=== PATIENT | female | born 1950 | race Caucasian/White ===

== ENCOUNTER → 2017-09-07 | Outpatient (CLI) | payer MEDICARE, MEDICAID ==
[~2017-09-07] MED LIST: ABIL15TA3 PO; ACET-822 PO; ALBU0.63 NEB; ATEN50TA PO; ATOR20TA15 PO; CARB25TA9 PO; CLON0.5T PO; FENO145T2 PO; FLUT1INH INH; FLUT50SP EACH NARE; FURO1TAB62 PO; GABA400C5 PO; IPRA0.02 NEB; MULT-65 PO; OMEP40CA2 PO; TRAZ1TAB14 PO; TRIL600T PO; VITA1000 PO
[2017-09-07 08:54] LABS: AUTOMATED NEUTROPHIL # 3.3 TH/MM3 (1.8-7.7); BASOPHIL % 0.4 % (0.0-2.0); EOSINOPHIL # 0.1 TH/MM3 (0-0.4); EOSINOPHIL % 2.5 % (0.0-4.0); HEMATOCRIT 33.5 % (35.0-46.0); HEMOGLOBIN 11.3 GM/DL (11.6-15.3); INTERNATIONAL NORMALIZED RATIO 1.1 RATIO; LYMPH % 28.9 % (9.0-44.0); LYMPHOCYTE # 1.5 TH/MM3 (1.0-4.8); MEAN CELL VOLUME 97.8 FL (80.0-100.0); MEAN CORPUSCULAR HGB CONC 33.7 % (32.0-36.0); MEAN PLATELET VOLUME 7.7 FL (7.0-11.0); MONOCYTE # 0.3 TH/MM3 (0-0.9); NEUT % 62.2 % (16.0-70.0); PLATELET COUNT 175 TH/MM3 (150-450); PROTHROMBIN TIME - PATIENT 11.2 SEC (9.8-11.6); RED BLOOD COUNT 3.42 MIL/MM3 (4.00-5.30); WHITE BLOOD COUNT 5.3 TH/MM3 (4.0-11.0)
[2017-09-07 09:11] LABS: ALBUMIN 3.7 GM/DL (3.4-5.0); ALT (GPT) 12 U/L (10-53); AST (GOT) 25 U/L (15-37); BICARBONATE 26.9 MEQ/L (21.0-32.0); BLOOD UREA NITROGEN 34 MG/DL (7-18); CALCIUM 8.7 MG/DL (8.5-10.1); CHLORIDE 108 MEQ/L (98-107); CREATININE 2.64 MG/DL (0.50-1.00); GLOMERULAR FILTRATION RATE 18 ML/MIN (>89); GLUCOSE,FASTING 118 MG/DL (74-99); SODIUM (NA) 141 MEQ/L (136-145)
[2017-09-07 09:13] LABS: ALKALINE PHOSPHATASE 66 U/L (45-117); TOTAL BILIRUBIN ADULT 0.4 MG/DL (0.2-1.0)
[2017-09-07 09:17] LABS: WESTERGREN SEDIMENTATION RATE 20 mm/hr (0-30)
[2017-09-07 10:09] LABS: BACTERIA, URINE MANY /hpf; BILIRUBIN, URINE NEG (NEG); BLOOD, URINE NEG (NEG); GLUCOSE,URINE NEG (NEG); KETONE, URINE NEG (NEG); MUCUS URINE FEW /lpf (OCC); NITRITE,URINE NEG (NEG); URINE COLOR YELLOW (YELLW/STRAW); URINE LEUKOCYTE ESTERASE LARGE (NEG)
--- NOTE | 2017-09-07 10:15 | RADRPT ---
EXAM DATE/TIME: 09/07/2017 09:58 [facility] COMPARISON: CHEST SINGLE AP, September 14, 2015, 9:19. INDICATIONS : Evaluate for pneumonia, pneumothorax, or communicable disease. Pre op for knee surgery. MEDICAL HISTORY : Hypertension. Chronic obstructive pulmonary disease. Diabetes. Asthma. SURGICAL HISTORY : None. ENCOUNTER: Initial ACUITY: 1 day PAIN SCORE: 0/10 LOCATION: FINDINGS: PA and lateral views of the chest demonstrate the lungs to be symmetrically aerated without evidence of mass, infiltrate or effusion. The cardiomediastinal contours are unremarkable. Osseous structure s are intact. CONCLUSION: No acute disease. Mendez Kennedy MD on September 07, 2017 at 10:10 Board Certified Radiologist. This report was verified electronically.
--- NOTE | 2017-09-07 16:44 | EKG ---
Date Performed: 09/07/2017 Time Performed: 09:32:28 PTAGE: 66 years EKG: Sinus rhythm Possible anterior infarct - age undetermined Inferior/lateral T wave changes are nonspecific Low QRS voltages in precordial leads Abnormal ECG PREVIOUS TRACING : 09/14/2015 09.46 Since previous tracing, no significant change noted DOCTOR: Ryan Churchill Interpretating Date/Time 09/07/2017 16:42:56
== END ==
LOC: CPRE 08:06
PROVIDERS: ATTEND Orthopaedic Surgery Sports Medicine
DX: Z01.812 Encounter for preprocedural laboratory examination (principal); Z01.810 Encounter for preprocedural cardiovascular examination; Z01.811 Encounter for preprocedural respiratory examination; M17.12 Unilateral primary osteoarthritis, left knee; M25.50 Pain in unspecified joint; R94.31 Abnormal electrocardiogram [ECG] [EKG]; N39.0 Urinary tract infection, site not specified; B96.1 Klebsiella pneumoniae [K. pneumoniae] as the cause of diseases classified elsewhere; Z79.01 Long term (current) use of anticoagulants; Z96.60 Presence of unspecified orthopedic joint implant
CPT/HCPCS: 36415; 71046; 80053; 81001; 85025; 85610; 85652; 85730; 87077; 87086; 87186; 93005

== ENCOUNTER 2017-09-17 05:31 | Inpatient (IN) | payer MEDICARE, MEDICAID ==
[2017-09-17] MEDS ORDERED: CHLORHEXIDINE GLUCONATE 2 % 1 PACK (2 CLOTHS) TOPICAL (06:00)
[2017-09-17] MEDS ORDERED: SODIUM CHLORID 0.9% 500 ML IV (06:00)
[2017-09-17] MEDS ORDERED: ceFAZolin 2 GM PREMIX 50 ML IV (06:00)
[2017-09-17] MEDS ORDERED: diphenhydrAMINE HCL 50 MG/ML VIAL IV PUSH (07:00)
[2017-09-17] MEDS ORDERED: ZOLPIDEM TARTRATE 5 MG TAB PO (07:00)
[2017-09-17] MEDS ORDERED: ONDANSETRON HCL 4 MG/2 ML VIAL IVP (07:00)
[2017-09-17] MEDS ORDERED: HYDROmorphone HCL PF 2 MG/ML VIAL IV PUSH (07:00)
[2017-09-17 07:45] LABS: BILIRUBIN, URINE NEG (NEG); BLOOD, URINE NEG (NEG); COMMENT (UR) CATH-CULT NOT IND; CULTURE IF INDICATED CATH CULTURE NOT IND; GLUCOSE,URINE NEG (NEG); KETONE, URINE NEG (NEG); NITRITE,URINE NEG (NEG); PH, URINE 5.5 (5.0-8.5); URINE COLOR YELLOW (YELLW/STRAW); URINE LEUKOCYTE ESTERASE TRACE (NEG)
[2017-09-17] MEDS: LACTATED RINGER'S 1000 ML IV (07:45)
[2017-09-17] MEDS: METOPROLOL TARTRATE 25 MG TAB PO (08:00)
[2017-09-17] MEDS: CHLORHEXIDINE GLUCONATE 4% SOLN 120 ML BTL TOPICAL (08:00)
[2017-09-17] MEDS ORDERED: BUPIVACAINE LIPOSOME PF 1.3% 20 ML VIAL ×2 (08:01→08:02)
[2017-09-17] MEDS: DEXAMETHASONE SOD PHOS 20 MG/5 ML VIAL IV (08:05)
[2017-09-17] MEDS: VANCOMYCIN 1000 MG/NS 250 ML (for <70 kg) IV (08:10)
[2017-09-17] MEDS: TRANEXAMIC ACID IV (08:30)
[2017-09-17] MEDS: SODIUM CHLORIDE 0.9% IV (08:30)
[2017-09-17] MEDS: clonazePAM 0.5 MG TAB PO ×2 (09:00→20:27)
[2017-09-17] MEDS: FLUTICASONE 100 MCG/VILANTEROL 25 MCG INHALER INH (09:00)
[2017-09-17] MEDS: FUROSEMIDE 20 MG TAB PO (09:00)
[2017-09-17] MEDS: ATENOLOL 50 MG TAB PO (09:00)
[2017-09-17] MEDS: ROPIVACAINE PERI-ARTICULAR INJECTION. P-ARTICULR (09:02)
[2017-09-17] MEDS: TRANEXAMIC PERI-ARTICULAR 3,000 MG/NS 100 ML P-ARTICULR (09:02)
[2017-09-17] MEDS: GENTAMICIN SULFATE 80 MG/2 ML VIAL (09:02)
[2017-09-17] MEDS ORDERED: DO NOT ADM ANY ANTICOAGULANT DRUGS (10:23)
[2017-09-17] MEDS ORDERED: Post-op Orders (for Pharmacy) XX (10:23)
[2017-09-17] MEDS: ONDANSETRON HCL 4 MG/2 ML VIAL IV (12:00)
[2017-09-17] MEDS ORDERED: GABAPENTIN 400 MG CAP PO (12:00)
[2017-09-17] MEDS: NEOSTIGMINE 5 MG/5 ML SYRINGE IV PUSH (12:00)
[2017-09-17] MEDS: ePHEDrine/NS 25 MG/5 ML SYRINGE IV (12:00)
[2017-09-17] MEDS: GLYCOPYRROLATE 1 MG/5 ML SYRINGE IV PUSH (12:00)
[2017-09-17] MEDS: LIDOCAINE HCL 1% PF 5 ML SYRINGE OTHER (12:00)
[2017-09-17] MEDS: ROCURONIUM INJ 50 MG/5 ML SYRINGE IV PUSH (12:00)
[2017-09-17] MEDS: PROPOFOL 200 MG/20 ML AMP IV (12:00)
[2017-09-17] MEDS: SODIUM CHLORIDE 0.9% 20 ML VIAL IV (12:00)
[2017-09-17] MEDS: SODIUM CHLOR 0.9% 1000 ML INJ 1,000 ML IV ×2 (13:00→23:29)
[2017-09-17] MEDS: CARBIDOPA/LEVODOPA 25 MG/100 MG TAB PO ×3 (13:08→23:28)
[2017-09-17] MEDS: OXcarbazepine 600 MG TAB PO ×2 (13:08→20:27)
[2017-09-17] MEDS: FENOFIBRATE 145 MG TAB PO (13:10)
[2017-09-17] MEDS: ARIPiprazole 15 MG TAB PO (13:10)
[2017-09-17] MEDS: PANTOPRAZOLE SOD 40 MG DELAYED RELEASE TAB PO (13:19)
[2017-09-17] MEDS: GABAPENTIN 100 MG CAP PO ×3 (13:20→23:28)
[2017-09-17] MEDS: oxyCODONE/ACETAMINOPHEN 5 MG/325 MG TAB PO ×2 (13:53→23:38)
[2017-09-17] MEDS ORDERED: RESP: ALBUTEROL 2.5 MG/IPRATROPIUM 0.5 MG NEB (PRN) NEB (14:15)
[2017-09-17] MEDS: ceFAZolin 2 GM PREMIX 50 ML IV ×2 (15:14→20:28)
[2017-09-17] MEDS: RESP: ALBUTEROL 0.63 MG/3 ML NEB (SCH) NEB (20:09)
[2017-09-17] MEDS: traZODone HCL 50 MG TAB PO (20:27)
[2017-09-18] MEDS: ceFAZolin 2 GM PREMIX 50 ML IV (01:35)
[2017-09-18] MEDS: GABAPENTIN 100 MG CAP PO ×4 (05:34→23:53)
[2017-09-18] MEDS: CARBIDOPA/LEVODOPA 25 MG/100 MG TAB PO ×4 (05:34→23:52)
[2017-09-18 07:13] LABS: HEMATOCRIT 24.7 % (35.0-46.0); HEMOGLOBIN 8.6 GM/DL (11.6-15.3); MEAN CELL VOLUME 99.1 FL (80.0-100.0); MEAN CORPUSCULAR HEMOGLOBIN 34.6 PG (27.0-34.0); MEAN CORPUSCULAR HGB CONC 34.9 % (32.0-36.0); MEAN PLATELET VOLUME 8.2 FL (7.0-11.0); PLATELET COUNT 192 TH/MM3 (150-450); RED BLOOD COUNT 2.49 MIL/MM3 (4.00-5.30); RED CELL DISTRIBUTION WIDTH 16.3 % (11.6-17.2); REVIEW FLAG FINAL; WHITE BLOOD COUNT 6.3 TH/MM3 (4.0-11.0)
[2017-09-18 07:45] LABS: ANION GAP 8 MEQ/L (5-15); BICARBONATE 23.1 MEQ/L (21.0-32.0); BLOOD UREA NITROGEN 31 MG/DL (7-18); CALCIUM 7.4 MG/DL (8.5-10.1); CHLORIDE 106 MEQ/L (98-107); GLUCOSE,RANDOM 112 MG/DL (74-106); POTASSIUM 4.3 MEQ/L (3.5-5.1); SODIUM (NA) 137 MEQ/L (136-145)
[2017-09-18] MEDS ORDERED: ACETAMINOPHEN 500 MG CPLT PO (08:30)
[2017-09-18 08:31] LABS: CALCIUM-PROTEIN CORRECTED 7.7 MG/DL (8.5-10.1); CREATININE 3.09 MG/DL (0.50-1.00); GLOMERULAR FILTRATION RATE 15 ML/MIN (>89); TOTAL PROTEIN 6.5 GM/DL (6.4-8.2)
[2017-09-18] MEDS: FENOFIBRATE 145 MG TAB PO (08:34)
[2017-09-18] MEDS: OXcarbazepine 600 MG TAB PO ×2 (08:34→20:48)
[2017-09-18] MEDS: clonazePAM 0.5 MG TAB PO ×2 (08:34→20:48)
[2017-09-18] MEDS: ARIPiprazole 15 MG TAB PO (08:34)
[2017-09-18] MEDS: PANTOPRAZOLE SOD 40 MG DELAYED RELEASE TAB PO (08:34)
[2017-09-18] MEDS: ENOXAPARIN SODIUM 30 MG/0.3 ML SYRINGE SQ (08:35)
[2017-09-18] MEDS: SODIUM CHLOR 0.9% 1000 ML INJ 1,000 ML IV ×3 (09:00→23:54)
[2017-09-18] MEDS ORDERED: MORPHINE SULFATE 2 MG/ML INJ IV PUSH (09:30)
[2017-09-18] MEDS: ACETAMINOPHEN 500 MG CPLT PO ×2 (10:29→23:53)
[2017-09-18] MEDS: FLUTICASONE 100 MCG/VILANTEROL 25 MCG INHALER INH (18:08)
[2017-09-18] MEDS: RESP: ALBUTEROL 0.63 MG/3 ML NEB (SCH) NEB (20:18)
[2017-09-18] MEDS: DOCUSATE SODIUM 100 MG CAP PO (20:48)
[2017-09-18] MEDS: traZODone HCL 50 MG TAB PO (20:48)
[2017-09-18] MEDS: MULTIVITAMINS/MINERALS THERAPEUTIC TAB PO (20:48)
[2017-09-19] MEDS: CARBIDOPA/LEVODOPA 25 MG/100 MG TAB PO ×3 (06:03→17:11)
[2017-09-19] MEDS: GABAPENTIN 100 MG CAP PO ×3 (06:04→17:11)
[2017-09-19] MEDS: FLUTICASONE 100 MCG/VILANTEROL 25 MCG INHALER INH (08:11)
[2017-09-19] MEDS: DOCUSATE SODIUM 100 MG CAP PO ×2 (08:12→21:25)
[2017-09-19] MEDS: FENOFIBRATE 145 MG TAB PO (08:12)
[2017-09-19] MEDS: ARIPiprazole 15 MG TAB PO (08:13)
[2017-09-19] MEDS: MULTIVITAMINS/MINERALS THERAPEUTIC TAB PO ×2 (08:13→21:25)
[2017-09-19] MEDS: PANTOPRAZOLE SOD 40 MG DELAYED RELEASE TAB PO (08:13)
[2017-09-19] MEDS: clonazePAM 0.5 MG TAB PO ×2 (08:13→21:25)
[2017-09-19] MEDS: OXcarbazepine 600 MG TAB PO ×2 (08:13→21:25)
[2017-09-19] MEDS: ACETAMINOPHEN 500 MG CPLT PO ×4 (08:17→21:39)
[2017-09-19] MEDS: MAGNESIUM HYDROXIDE SUSP 30 ML CUP PO (08:20)
[2017-09-19] MEDS: ENOXAPARIN SODIUM 30 MG/0.3 ML SYRINGE SQ (11:52)
[2017-09-19 13:42] LABS: HEMATOCRIT 24.8 % (35.0-46.0); HEMOGLOBIN 8.6 GM/DL (11.6-15.3); MEAN CELL VOLUME 98.8 FL (80.0-100.0); MEAN CORPUSCULAR HEMOGLOBIN 34.3 PG (27.0-34.0); MEAN CORPUSCULAR HGB CONC 34.8 % (32.0-36.0); MEAN PLATELET VOLUME 7.8 FL (7.0-11.0); PLATELET COUNT 185 TH/MM3 (150-450); RED BLOOD COUNT 2.52 MIL/MM3 (4.00-5.30); REVIEW FLAG FINAL; WHITE BLOOD COUNT 5.8 TH/MM3 (4.0-11.0)
[2017-09-19 13:56] LABS: ANION GAP 8 MEQ/L (5-15); BICARBONATE 23.4 MEQ/L (21.0-32.0); BLOOD UREA NITROGEN 32 MG/DL (7-18); CALCIUM 8.3 MG/DL (8.5-10.1); CHLORIDE 107 MEQ/L (98-107); CREATININE 2.74 MG/DL (0.50-1.00); GLOMERULAR FILTRATION RATE 17 ML/MIN (>89); GLUCOSE,RANDOM 139 MG/DL (74-106); POTASSIUM 4.7 MEQ/L (3.5-5.1); SODIUM (NA) 138 MEQ/L (136-145)
[2017-09-19] MEDS ORDERED: FLUTICASONE PROPIONATE 110 MCG/ACT 12 GM INHALER INH (15:00)
[2017-09-19] MEDS: SODIUM CHLOR 0.9% 1000 ML INJ 1,000 ML IV (15:00)
[2017-09-19] MEDS: RESP: ALBUTEROL 0.63 MG/3 ML NEB (SCH) NEB (19:55)
[2017-09-19] MEDS: traZODone HCL 50 MG TAB PO (21:25)
[2017-09-20] MEDS: CARBIDOPA/LEVODOPA 25 MG/100 MG TAB PO ×3 (00:01→11:43)
[2017-09-20] MEDS: GABAPENTIN 100 MG CAP PO ×3 (00:01→11:43)
[2017-09-20] MEDS: SODIUM CHLOR 0.9% 1000 ML INJ 1,000 ML IV (01:00)
[2017-09-20] MEDS: ACETAMINOPHEN 500 MG CPLT PO ×2 (03:51→10:00)
[2017-09-20 06:26] LABS: HEMATOCRIT 24.1 % (35.0-46.0); HEMOGLOBIN 8.4 GM/DL (11.6-15.3); MEAN CELL VOLUME 98.6 FL (80.0-100.0); MEAN CORPUSCULAR HEMOGLOBIN 34.3 PG (27.0-34.0); MEAN CORPUSCULAR HGB CONC 34.8 % (32.0-36.0); MEAN PLATELET VOLUME 7.6 FL (7.0-11.0); PLATELET COUNT 205 TH/MM3 (150-450); RED BLOOD COUNT 2.44 MIL/MM3 (4.00-5.30); RED CELL DISTRIBUTION WIDTH 15.9 % (11.6-17.2); REVIEW FLAG FINAL; WHITE BLOOD COUNT 7.4 TH/MM3 (4.0-11.0)
[2017-09-20 06:46] LABS: ANION GAP 5 MEQ/L (5-15); BICARBONATE 24.8 MEQ/L (21.0-32.0); BLOOD UREA NITROGEN 31 MG/DL (7-18); CALCIUM 8.3 MG/DL (8.5-10.1); CHLORIDE 111 MEQ/L (98-107); CREATININE 2.53 MG/DL (0.50-1.00); GLOMERULAR FILTRATION RATE 19 ML/MIN (>89); GLUCOSE,RANDOM 108 MG/DL (74-106); SODIUM (NA) 141 MEQ/L (136-145)
[2017-09-20] MEDS: DOCUSATE SODIUM 100 MG CAP PO (08:36)
[2017-09-20] MEDS: amLODIPine BESYLATE 5 MG TAB PO (08:36)
[2017-09-20] MEDS: clonazePAM 0.5 MG TAB PO (08:36)
[2017-09-20] MEDS: OXcarbazepine 600 MG TAB PO (08:36)
[2017-09-20] MEDS: PANTOPRAZOLE SOD 40 MG DELAYED RELEASE TAB PO (08:36)
[2017-09-20] MEDS: MULTIVITAMINS/MINERALS THERAPEUTIC TAB PO (08:37)
[2017-09-20] MEDS: FENOFIBRATE 145 MG TAB PO (08:37)
[2017-09-20] MEDS: FLUTICASONE 100 MCG/VILANTEROL 25 MCG INHALER INH (08:38)
[2017-09-20] MEDS: ARIPiprazole 15 MG TAB PO (10:00)
[2017-09-20] MEDS: ENOXAPARIN SODIUM 30 MG/0.3 ML SYRINGE SQ (10:04)
== END 2017-09-20 14:32 | DRG 470 ==
LOC: HSDI 05:31 → N06B 11:17
PROVIDERS: Orthopaedic Surgery Sports Medicine
PROC: 0SRD0J9 Replacement of Left Knee Joint with Synthetic Substitute, Cemented, Open Approach (ICD-10-PCS; principal; 2017-09-17 08:15)
PROC: 3E0T3BZ Introduction of Anesthetic Agent into Peripheral Nerves and Plexi, Percutaneous Approach (ICD-10-PCS; 2017-09-17 08:15)
DX: M17.12 Unilateral primary osteoarthritis, left knee (principal); N17.9 Acute kidney failure, unspecified; I95.9 Hypotension, unspecified; G20 Parkinson's disease; J44.9 Chronic obstructive pulmonary disease, unspecified; N18.4 Chronic kidney disease, stage 4 (severe); I12.9 Hypertensive chronic kidney disease with stage 1 through stage 4 chronic kidney disease, or unspecified chronic kidney disease; E78.5 Hyperlipidemia, unspecified; K21.9 Gastro-esophageal reflux disease without esophagitis; F32.9 Major depressive disorder, single episode, unspecified; F41.9 Anxiety disorder, unspecified
CPT/HCPCS: 73560; 80048; 81001; 84155; 85027; 86850; 86900; 86901; 94150; 94640; 94664; 97110-GP; 97116-GP; 97150-GP; 97162-GP; 97530-GP

== ENCOUNTER 2017-11-18 09:15 | Emergency (ER) | payer MEDICARE, MEDICAID ==
[~2017-11-18 09:15] MED LIST changes: -ATEN50TA PO; -ATOR20TA15 PO; +COMMODE 3-IN-11 MIS; +CPMMACHINE; +ENOX30P SQ; -FURO1TAB62 PO; -IPRA0.02 NEB; +PERC5TAB12 PO; +WALKER WHEELS/F1 MIS
[2017-11-18 09:21] VITALS: BP 141/65; PULSE 96; RESP 20; TEMP 99; O2SAT 96
[2017-11-18] MEDS ORDERED: ACETAMINOPHEN 325 MG TAB PO ONE (09:30)
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
--- NOTE | 2017-11-18 10:40 | RADRPT ---
EXAM DATE/TIME: 11/18/2017 09:43 [facility] COMPARISON: CHEST SINGLE AP, September 14, 2015, 9:19. INDICATIONS : Pain after falling. MEDICAL HISTORY : None. SURGICAL HISTORY : None. ENCOUNTER: Initial ACUITY: 1 day PAIN SCORE: 8/10 LOCATION: Bilateral chest FINDINGS: There is a poor inspiratory result. The heart is prominent. There is prominence of the right paratrac heal tissues or possible mediastinal widening. CT of the chest with contrast may be helpful for [facility] characterization of this finding if clinically indicated. The lungs are otherwise clear. No pneumo thorax is noted. CONCLUSION: Prominence of the right paratracheal tissues or possible mediastinal widening. CT of the chest with c ontrast may be helpful for further characterization of this finding if clinically indicated. Miguel Anderson MD on November 18, 2017 at 10:36 Board Certified Radiologist. This report was verified electronically.
--- NOTE | 2017-11-18 10:41 | RADRPT ---
EXAM DATE/TIME: 11/18/2017 09:47 [facility] COMPARISON: No previous studies available for comparison. INDICATIONS : Pain after falling. MEDICAL HISTORY : None. SURGICAL HISTORY : Cholecystectomy. ENCOUNTER: Initial ACUITY: 1 day PAIN SCORE: 8/10 LOCATION: Pelvis. FINDINGS: No acute fracture or dislocation is noted. Degenerative changes and scoliosis of the lumbar spine are noted. CONCLUSION: No acute fracture or dislocation. Degenerative changes and scoliosis of the lumbar sp ine. Miguel Anderson MD on November 18, 2017 at 10:38 Board Certified Radiologist. This report was verified electronically.
--- NOTE | 2017-11-18 10:42 | RADRPT ---
EXAM DATE/TIME: 11/18/2017 09:48 [facility] COMPARISON: No previous studies available for comparison. INDICATIONS : Pain in left leg after falling. MEDICAL HISTORY : None. SURGICAL HISTORY : None. ENCOUNTER: Initial ACUITY: 1 day PAIN SCORE: 8/10 LOCATION: Left Femur. FINDINGS: Two view examination of the left femur demonstrates no evidence of fracture or dislocation. Bony min eralization is normal. The soft tissue structures are intact. Left knee replacement is noted. CONCLUSION: No acute disease. Miguel Anderson MD on November 18, 2017 at 10:39 Board Certified Radiologist. This report was verified electronically.
--- NOTE | 2017-11-18 10:43 | RADRPT ---
EXAM DATE/TIME: 11/18/2017 09:52 [facility] COMPARISON: No previous studies available for comparison. INDICATIONS : Pain in left knee after falling. MEDICAL HISTORY : None. SURGICAL HISTORY : Total knee replacement, left. ENCOUNTER: Initial ACUITY: 1 day PAIN SCORE: 8/10 LOCATION: Left Knee. FINDINGS: The patient is status post left total knee replacement. A small suprapatellar knee joint effusion is noted. Chondrocalcinosis is also noted. No acute fracture or dislocation is noted. CONCLUSION: No acute fracture or dislocation. Small suprapatellar knee joint effusion. Chondrocal cinosis. Miguel Anderson MD on November 18, 2017 at 10:40 Board Certified Radiologist. This report was verified electronically.
--- NOTE | 2017-11-18 10:47 | RADRPT ---
EXAM DATE/TIME: 11/18/2017 09:58 [facility] COMPARISON: No previous studies available for comparison. INDICATIONS : Pain in left shoulder after falling. MEDICAL HISTORY : None. SURGICAL HISTORY : None. ENCOUNTER: Initial ACUITY: 1 day PAIN SCORE: 8/10 LOCATION: Left Shoulder. FINDINGS: Multiple view examination of the left shoulder demonstrates no evidence of fracture or dislocation. M ild degenerative changes are noted involving the left glenohumeral and acromioclavicular joints. CONCLUSION: No acute fracture or dislocation. Mild degenerative changes involving the left glenohumeral and acrom ioclavicular joints. Miguel Anderson MD on November 18, 2017 at 10:44 Board Certified Radiologist. This report was verified electronically.
--- NOTE | 2017-11-18 10:48 | RADRPT ---
EXAM DATE/TIME: 11/18/2017 10:10 [facility] COMPARISON: No previous studies available for comparison. INDICATIONS : Pain in left elbow after falling. MEDICAL HISTORY : None. SURGICAL HISTORY : None. ENCOUNTER: Initial ACUITY: 1 day PAIN SCORE: 8/10 LOCATION: Left Elbow. FINDINGS: Multiple view examination of the left elbow demonstrates no soft tissue swelling, joint effusion, or fracture. The osseous structures are in normal alignment. Tiny olecranon spur is noted. Bony minera lization is normal. CONCLUSION: No acute fracture or dislocation. Tiny olecranon spur. Miguel Anderson MD on November 18, 2017 at 10:45 Board Certified Radiologist. This report was verified electronically.
--- NOTE | 2017-11-18 10:50 | RADRPT ---
EXAM DATE/TIME: 11/18/2017 10:13 [facility] COMPARISON: No previous studies available for comparison. INDICATIONS : Pain in left wrist after falling. MEDICAL HISTORY : None. SURGICAL HISTORY : None. ENCOUNTER: Initial ACUITY: 1 day PAIN SCORE: 8/10 LOCATION: Left Wrist. FINDINGS: Severe osteoarthritis is noted involving the left first carpometacarpal joint. There is no acute frac ture or dislocation. CONCLUSION: No acute fracture or dislocation. Severe osteoarthritis involving the left first carpometacarpal join t. Miguel Anderson MD on November 18, 2017 at 10:47 Board Certified Radiologist. This report was verified electronically.
--- NOTE | 2017-11-18 10:53 | RADRPT ---
EXAM DATE/TIME: 11/18/2017 10:25 [facility] COMPARISON: CT BRAIN W/O CONTRAST, September 14, 2015, 10:02. INDICATIONS : Trauma, fall yesterday. RADIATION DOSE: 56.35 CTDIvol (mGy) MEDICAL HISTORY : Seizures. Parkinsons. Dementia. SURGICAL HISTORY : Tubal ligation. ENCOUNTER: Initial ACUITY: 1 day PAIN SCALE: 5/10 LOCATION: Bilateral head TECHNIQUE: Multiple contiguous axial images were obtained of the head. Using automated exposure control and adj ustment of the mA and/or kV according to patient size, radiation dose was kept as low as reasonably a chievable to obtain optimal diagnostic quality images. DICOM format image data is available electro nically for review and comparison. FINDINGS: CEREBRUM: The ventricles are normal for age. No evidence of midline shift, mass lesion, hemorrhage or acute in farction. No extra-axial fluid collections are seen. POSTERIOR FOSSA: The cerebellum and brainstem are intact. The 4th ventricle is midline. The cerebellopontine angle i s unremarkable. EXTRACRANIAL: The visualized portion of the orbits is intact. SKULL: The calvaria is intact. No evidence of skull fracture. CONCLUSION: No acute disease. Miguel Anderson MD on November 18, 2017 at 10:50 Board Certified Radiologist. This report was verified electronically.
--- NOTE | 2017-11-18 11:15 | RADRPT ---
EXAM DATE/TIME: 11/18/2017 10:25 [facility] COMPARISON: CT CERVICAL SPINE W/O CONTRAST, October 26, 2013, 4:39. INDICATIONS : Trauma, fall yesterday. RADIATION DOSE: 33.63 CTDIvol (mGy) MEDICAL HISTORY : Parkinson's. Hypertension. Gastroesophageal reflux disease. SURGICAL HISTORY : Tubal ligation. ENCOUNTER: Initial ACUITY: 1 day PAIN SCALE: 5/10 LOCATION: Bilateral neck TECHNIQUE: Volumetric scanning of the cervical spine was performed. Multiplanar reconstructions in the sagittal, coronal and oblique axial planes were performed. Using automated exposure control and adjustment o f the mA and/or kV according to patient size, radiation dose was kept as low as reasonably achievable to obtain optimal diagnostic quality images. DICOM format image data is available electronically f or review and comparison. FINDINGS: There is grade I anterolisthesis of C2 in relation to C3 which was not noted on the [facility] exam[facility] October of 2013. Diffuse cervical spondylosis is noted at all levels. No acute fracture or preve rtebral soft tissue swelling is noted. Multilevel mild spinal stenosis and moderate bilateral foramin al narrowing is again noted and stable compared to the previous examination. CONCLUSION: Grade I anterolisthesis of C2 in relation to C3 which was not noted on the previous examination in [facility] of 2013. Stable diffuse cervical spondylosis, multilevel mild spinal stenosis and moderate bilate ral foraminal narrowing. No acute fracture or prevertebral soft tissue swelling. Miguel Anderson MD on November 18, 2017 at 11:08 Board Certified Radiologist. This report was verified electronically.
--- NOTE | 2017-11-18 12:22 | RADRPT ---
EXAM DATE/TIME: 11/18/2017 11:49 [facility] COMPARISON: No previous studies available for comparison. INDICATIONS : Left sided pain post fall yesterday. RADIATION DOSE: 19.00 CTDIvol (mGy) MEDICAL HISTORY : Dementia. Parkinsons. Cardiovascular disease HTN,Herpes,GERD,schizophrenia, renal disease,fibromyalgi a SURGICAL HISTORY : Cholecystectomy. Tubal ligation. ENCOUNTER: Initial ACUITY: 2 days PAIN SCALE: 10/10 LOCATION: Left chest TECHNIQUE: Volumetric scanning of the chest was performed. Using automated exposure control and adjustment of t he mA and/or kV according to patient size, radiation dose was kept as low as reasonably achievable to obtain optimal diagnostic quality images. DICOM format image data is available electronically for r eview and comparison. Follow-up recommendations for detected pulmonary nodules are based at a minimum on nodule size and pa tient risk factors according to Fleischner Society Guidelines. FINDINGS: LUNGS: There is a 2.7 cm focal density posterior left lung base. Given the patient's history, this could rep resent contusion. An area of consolidation, atelectasis or mass cannot be excluded. This could be fol lowed. There is linear density at the posterior medial right mid and lower lung likely related to ate lectasis or scarring. There is minimal bullous change at the posterior medial left lower lobe. PLEURAE: There is no pleural thickening or pleural effusion. MEDIASTINUM: The heart and great vessels demonstrate no acute abnormality. There is no mediastinal or hilar lymph adenopathy. AXILLAE: Within normal limits. No lymphadenopathy. MUSCULOSKELETAL: No fracture is seen. There is degenerative change in the thoracic spine. MISCELLANEOUS: The visualized upper abdominal organs demonstrate no acute abnormality. CONCLUSION: 1. 2.7 cm focal density at the posterior left lower lung representing either contusion or consolidat ion, atelectasis or possible mass. Given the history, one could consider contusion and perform short term follow examination to insure this area resolves. This can be best accomplished with a CT of the chest without contrast in 6-12 weeks. 2. Suspected atelectasis or scarring at the posterior medial mid and lower right lung. Mendez Phillips MD on November 18, 2017 at 12:11 Board Certified Radiologist. This report was verified electronically.
[2017-11-18] MEDS ORDERED: oxyCODONE/ACETAMINOPHEN 5 MG/325 MG TAB PO ONE (12:45)
== END 2017-11-18 13:58 | disposition home or self-care (01) ==
LOC: NEPD 09:15
DX: R52 Pain, unspecified (principal); W18.30XA Fall on same level, unspecified, initial encounter; E78.5 Hyperlipidemia, unspecified; I25.10 Atherosclerotic heart disease of native coronary artery without angina pectoris; R73.03 Prediabetes; G20 Parkinson's disease; I10 Essential (primary) hypertension; F20.9 Schizophrenia, unspecified; Z87.891 Personal history of nicotine dependence
CPT/HCPCS: 70450; 71045; 71250; 72125; 72170; 73030; 73080; 73110; 73552; 73564

== ENCOUNTER 2018-04-11 09:30 | Inpatient (IN) ==
[2018-04-11] MEDS ORDERED: Sod Chloride 0.9% Inj 1,000 ML IV.SIG SCH ×2 (09:45)
[2018-04-11] MEDS ORDERED: Vancomycin Inj 1,500 MG in Sodium Chlor 0.9% Inj 500 ML IV.SIG ONE (09:46)
[2018-04-11] MEDS ORDERED: fentaNYL Citrate Inj 100 MCG/2 ML Ampul IV.PUSH ONE (09:49)
[2018-04-11 10:41] LABS: Baso % (Auto) 0.1 % (0.0-2.0); Eos % (Auto) 0.1 % (0.0-4.0); Hematocrit 33.2 % (35.0-46.0); Lymph # (Auto) 0.6 th/mm3 (1.0-4.8); Lymph % (Auto) 6.3 % (9.0-44.0); Mean Corpuscular HGB Conc 33.2 % (32.0-36.0); Mean Corpuscular Hemoglobin 31.2 pg (27.0-34.0); Mean Corpuscular Volume 94.2 fL (80.0-100.0); Mean Platelet Volume 7.9 fL (7.0-11.0); Mono # (Auto) 0.7 th/mm3 (0.0-0.9); Mono % (Auto) 6.8 % (0.0-8.0); Neut # (Auto) 8.7 th/mm3 (1.8-7.7); Neut % (Auto) 86.7 % (16.0-70.0); Platelet Count 187 th/mm3 (150-450); Red Blood Count 3.52 mil/mm3 (4.00-5.30); Red Cell Distribution Width 15.8 % (11.6-17.2); White Blood Count 10.1 th/mm3 (4.0-11.0)
[2018-04-11 10:55] LABS: Bacteria,Urine Few /hpf; Bilirubin,Urine Negative (Negative); Clarity,Urine Cloudy (Clear); Color,Urine Yellow (Yellw/Straw); Glucose,Urine (UA) 50 mg/dL (Negative); Leukocyte Esterase,Urine Large (Negative); Nitrite,Urine Negative (Negative); Specific Gravity,Urine 1.008 (1.002-1.035); Squamous Epithelial Cell,Urine 2 /hpf (0-5); Transitional Epi Cells,Urine 1 /hpf
[2018-04-11 10:58] LABS: Alanine Aminotransferase 12 U/L (10-53); Albumin 3.3 g/dL (3.4-5.0); Anion Gap 8 meq/L (5-15); Aspartate Aminotransferase 20 U/L (15-37); Blood Urea Nitrogen 34 mg/dL (7-18); Calcium 8.1 mg/dL (8.5-10.1); Carbon Dioxide 25.6 meq/L (21.0-32.0); Chloride 111 meq/L (98-107); Glomerular Filtration Rate 18 mL/min (>89); Glucose,Random 175 mg/dL (74-106); Potassium 4.2 meq/L (3.5-5.1); Sodium 145 meq/L (136-145)
[2018-04-11 11:01] LABS: Alkaline Phosphatase 62 U/L (45-117); Total Protein 7.3 g/dL (6.4-8.2)
--- NOTE | 2018-04-11 12:10 | XR ---
EXAM DATE: 04/11/2018 12:05 PM EDT AGE/SEX: 67 years / Female INDICATIONS: Fever. CLINICAL DATA: This is the patient's initial encounter. Patient reports that signs and symptoms have been present for 1 day and indicates a pain score of 0/10. MEDICAL/SURGICAL HISTORY: Asthma. Chronic obstructive pulmonary disease. Hypertension. None. [place]PAR[place] [facility] [place], [place]18[place]. . FINDINGS: A single AP view of the chest demonstrates the lungs to be symmetrically aerated without evidence of mass, infiltrate or effusion. The cardiomediastinal contours are unremarkable. Osseous structures a re intact. CONCLUSION: Negative examination. Electronically signed by: Mendez Kennedy MD 04/11/2018 12:09 PM EDT
--- NOTE | 2018-04-11 12:12 | XR ---
EXAM DATE: 04/11/2018 12:06 PM EDT AGE/SEX: 67 years / Female INDICATIONS: Left knee pain, no known injury. CLINICAL DATA: This is the patient's initial encounter. Patient reports that signs and symptoms have been present for 1 day and indicates a pain score of 10/10. MEDICAL/SURGICAL HISTORY: Asthma. Chronic obstructive pulmonary disease. Hypertension. Total knee replacement, left. COMPARISON: [facility] [place], KNEE LEFT COMPLETE (4VWS), 11/18/2017. . FINDINGS: Total knee arthroplasty is present. The hardware appears intact. Alignment is anatomic. There is no e vidence of fracture or destructive change. A moderate suprapatellar fusion is again noted. There is s ome ossification of the distal quadriceps tendon. CONCLUSION: Joint effusion. No evidence of acute bony injury Electronically signed by: Mendez Kennedy MD 04/11/2018 12:10 PM EDT
[2018-04-11] MEDS ORDERED: Lidocaine PF 1% Inj 2 ML Ampul ONE (13:36)
[2018-04-11] MEDS ORDERED: Lidocaine 1% Inj 30 ML Vial INFILTRATN ONE (14:00)
[2018-04-11] MEDS ORDERED: Acetaminophen 325 MG Tablet PO PRN (15:04)
[2018-04-11] MEDS ORDERED: Bisacodyl 10 MG Supp RECTAL PRN (15:04)
[2018-04-11] MEDS ORDERED: Vancomycin Consult Pharmacy OTHER SCH (15:09)
[2018-04-11] MEDS ORDERED: Loratadine 10 MG Tablet PO PRN (15:11)
--- NOTE | 2018-04-11 15:14 | P.PNIM ---
Physical Exam Vital signs: Vital Signs 04/11/18 09:51 04/11/18 09:59 04/11/18 10:03 Temperature 99.9 F H Pulse Rate 118 H 116 H Respiratory Rate 22 22 Blood Pressure 169/73 H Pulse Oximetry 92 L 97 04/11/18 10:49 04/11/18 12:40 04/11/18 13:15 Temperature 99 F Pulse Rate 110 H 120 H 118 H Respiratory Rate 22 20 22 Blood Pressure 194/132 H 155/68 H 155/68 H Pulse Oximetry 97 95 96 04/11/18 14:40 Temperature Pulse Rate 116 H Respiratory Rate 24 Blood Pressure 178/73 H Pulse Oximetry 95 Intake & Output 04/10/18 04/11/18 04/11/18 18:59 06:59 18:59 Intake Total 2615 / 2615 Balance 2615 / 2615 Weight 102.965 kg Intake: IV 2615 / 2615 NS Inj 1,000 ML @ Wide Open IV. 1999 SIG .Q0M TOO Rx#:[id number] Vancomycin Inj 1,500 MG In NS 515 / 515 Inj 500 ML @ 250 mls/hr IV.SIG ONCE ONE Rx#:[id number] Rocephin Inj 1,000 MG In NS Inj 100 / 100 100 ML @ 200 mls/hr IV.SIG ONCE ONE Rx#:[id number] Results - Labs CBC & Chem 7: 04/11/18 10:00 04/11/18 10:00 Laboratory Results - last 24 hr 04/11/18 04/11/18 04/11/18 10:00 10:00 10:00 WBC 10.1 RBC 3.52 L Hgb 11.0 L Hct 33.2 L MCV 94.2 MCH 31.2 MCHC 33.2 RDW 15.8 Plt Count 187 MPV 7.9 Neut % (Auto) 86.7 H Lymph % (Auto) 6.3 L [place] % (Auto) 6.8 Eos % (Auto) 0.1 Baso % (Auto) 0.1 Neut # (Auto) 8.7 H Lymph # (Auto) 0.6 L [place] # (Auto) 0.7 Eos # (Auto) 0.0 Baso # (Auto) 0.0 WBC Differential . Differential Comment Auto diff final Sodium 145 Potassium 4.2 Chloride 111 H Carbon Dioxide 25.6 Anion Gap 8 BUN 34 H Creatinine 2.59 H Estimated GFR 18 L POC Glucose Random Glucose 175 H Lactic Acid 2.0 Calcium 8.1 L Total Bilirubin 0.4 AST 20 ALT 12 Alkaline Phosphatase 62 Total Protein 7.3 Albumin 3.3 L Urine Color Urine Clarity Urine pH Ur Specific [place] Urine Protein Urine Glucose (UA) Urine Ketones Urine Occult Blood Urine Nitrate Urine Bilirubin Urine Urobilinogen Ur Leukocyte Esterase Urine RBC Urine WBC Urine WBC Clumps Ur Squamous Epith Cells Ur Transition Epith Cell Urine Bacteria Micro UA Comment Urine Culture Comments 04/11/18 04/11/18 10:00 10:20 WBC RBC Hgb Hct MCV MCH MCHC RDW Plt Count MPV Neut % (Auto) Lymph % (Auto) [place] % (Auto) Eos % (Auto) Baso % (Auto) Neut # (Auto) Lymph # (Auto) [place] # (Auto) Eos # (Auto) Baso # (Auto) WBC Differential Differential Comment Sodium Potassium Chloride Carbon Dioxide Anion Gap BUN Creatinine Estimated GFR POC Glucose 172 H Random Glucose Lactic Acid Calcium Total Bilirubin AST ALT Alkaline Phosphatase Total Protein Albumin Urine Color Yellow Urine Clarity Cloudy H Urine pH 6.0 Ur Specific [place] 1.008 Urine Protein 30 H Urine Glucose (UA) 50 Urine Ketones Negative Urine Occult Blood Moderate H Urine Nitrate Negative Urine Bilirubin Negative Urine Urobilinogen Less than 2 Ur Leukocyte Esterase Large H Urine RBC Less than 1 Urine WBC Urine WBC Clumps Moderate H Ur Squamous Epith Cells 2 Ur Transition Epith Cell 1 Urine Bacteria Few H Micro UA Comment Culture indicated Urine Culture Comments Culture indicated - Imaging Impressions Chest X-Ray 04/11/18 09:40 CONCLUSION: Negative examination. Knee X-Ray 04/11/18 09:49 CONCLUSION: Joint effusion. No evidence of acute bony injury
[2018-04-11 16:42] LABS: Lymphocytes,Synovial Fluid 1 %; Neutrophils,Synovial Fluid 95 % (0-25)
--- NOTE | 2018-04-11 16:43 | ED ---
HPI General Chief Complaint: Fever Stated Complaint: Knee pain Time Seen by Provider: 04/11/18 09:39 Source: patient and EMS Mode of arrival: EMS Limitations: no limitations History of Present Illness HPI Narrative: Patient is a 67-year-old female, past medical history significant for osteoarthritis status post left knee replacement, hypertension, hyperlipidemia, anxiety, COPD who presents with complaint of left knee pain that began today with swelling. EMS states that on their arrival she was found to be febrile to 103 and tachycardic to the 130s at which time they gave her 1 L of normal saline. They state that her heart rate has improved in route while here but blood pressure has been stable the entire time. Patient's only complaint is of her left knee pain. MD complaint: knee injury Place: home Severity: moderate Relieving factors: nothing Exacerbating factors: weight bearing, movement and palpation Other symptoms: none Related Data Home Medications Medication Instructions Recorded Confirmed albuterol sulfate 2.5 mg INHALATION HS 04/11/18 04/11/18 aripiprazole [Abilify] 15 mg PO DAILY 04/11/18 04/11/18 carbidopa-levodopa [Sinemet] 1 tab PO QID 04/11/18 04/11/18 clonazepam [Klonopin] 0.5 mg PO BID 04/11/18 04/11/18 fenofibrate nanocrystallized 145 mg PO HS 04/11/18 04/11/18 [Tricor] fluticasone [Flonase Allergy 2 spray INTRANASAL DAILY 04/11/18 04/11/18 Relief] fluticasone-vilanterol [Breo 1 puff INHALATION DAILY 04/11/18 04/11/18 Ellipta] gabapentin 400 mg PO QID 04/11/18 04/11/18 guaifenesin [Mucinex] 600 mg PO Q12H 04/11/18 04/11/18 ipratropium-albuterol [Combivent 2 puff INHALATION Q4HR PRN 04/11/18 04/11/18 Respimat] loratadine [Claritin] 10 mg PO DAILY PRN 04/11/18 04/11/18 omeprazole 40 mg PO DAILY 04/11/18 04/11/18 oxcarbazepine [Trileptal] 600 mg PO BID 04/11/18 04/11/18 permethrin [Elimite] 1 applic TOPICAL ONCE 04/11/18 04/11/18 trazodone 150 mg PO HS 04/11/18 04/11/18 Allergies Allergy/AdvReac Type Severity Reaction Status Date / Time apple Allergy Severe Nausea/Vomi Verified 04/11/18 09:49 ting carisoprodol Allergy Severe TREMORS Verified 04/11/18 09:49 chlorpromazine Allergy Severe unknown Verified 04/11/18 09:49 diatrizoate meglumine Allergy Severe CARDIAC Verified 04/11/18 09:49 ARREST egg Allergy Severe Nausea/Vomi Verified 04/11/18 09:49 ting gadobenic acid Allergy Severe CARDIAC Verified 04/11/18 09:49 ARREST gadodiamide Allergy Severe CARDIAC Verified 04/11/18 09:49 ARREST gadoteridol Allergy Severe CARDIAC Verified 04/11/18 09:49 ARREST haloperidol Allergy Severe Hallucinati Verified 04/11/18 09:49 ons iodine Allergy Severe CARDIAC Verified 04/11/18 09:49 ARREST iodixanol Allergy Severe CARDIAC Verified 04/11/18 09:49 ARREST iohexol Allergy Severe CARDIAC Verified 04/11/18 09:49 ARREST morphine Allergy Severe CARDIAC Verified 04/11/18 09:49 ARREST phenobarbital Allergy Severe HYPOKALEMIA Verified 04/11/18 09:49 potassium iodide Allergy Severe CARDIAC Verified 04/11/18 09:49 ARREST povidone-iodine Allergy Severe CARDIAC Verified 04/11/18 09:49 ARREST shrimp Allergy Severe Nausea/Vomi Verified 04/11/18 09:49 ting sodium iodide Allergy Severe CARDIAC Verified 04/11/18 09:49 ARREST sodium iodide Allergy Severe CARDIAC Verified 04/11/18 09:49 ARREST thioridazine Allergy Severe CARDIAC Verified 04/11/18 09:49 ARREST walnut Allergy Severe Nausea/Vomi Verified 04/11/18 09:49 ting lithium Allergy Intermediate EDEMA/DIARR Verified 04/11/18 09:49 HEA codeine Allergy Unknown Hallucinati Verified 04/11/18 09:49 ons aspirin AdvReac Severe Nausea/Vomi Verified 04/11/18 09:49 ting Penicillins AdvReac Mild Nausea/Vomi Verified 04/11/18 09:49 ting alcohol AdvReac Nausea/Vomi Verified 04/11/18 09:49 ting Review of Systems ROS: all other systems reviewed are negative Constitutional Reports chills Eyes Denies blurry vision ENT Denies nasal congestion Cardiovascular Denies chest pain Respiratory Denies dyspnea Gastrointestinal Denies abdominal pain Genitourinary Denies flank pain Musculoskeletal Denies back pain Integumentary/Breasts Denies rash Neurologic Denies headache(s) Psychiatric Denies confusion [facility] Medical History Medical History Anxiety (Acute) COPD (chronic obstructive pulmonary disease) (Acute) Depression (Acute) HTN (hypertension) (Acute) Hyperlipidemia (Acute) Osteoarthritis (Acute) Parkinson disease (Acute) Surgical History Surgical History History of knee replacement (Acute) Social History Social History Substance History: No History of Abuse and Past History Second Hand Smoke Exposure: No Smoking Status: Former smoker How Often Do You Have a Drink Containing Alcohol: Never Recent Travel in [facility] [[email or web address]] within the Last 8 Weeks: No Recent Out of Country Travel within the Last 8 Weeks: No Substance Abuse Detail Alcohol: Substance Use Status: Sustained Remission Route Used Substance Abuse: By Mouth Immunization History Tetanus Immunization: <5 Years Hx Influenza Vaccine This Season: Yes Exam Narrative Exam Narrative: GENERAL: Well-appearing female in no acute distress SKIN: Focused skin assessment warm/dry. No rashes. HEAD: Atraumatic. Normocephalic. EYES: Pupils equal and round. No scleral icterus. No injection or drainage. ENT: No nasal bleeding or discharge. Mucous membranes pink and moist. NECK: Trachea midline. No JVD. CARDIOVASCULAR: Tachycardic but regular. No murmur appreciated. RESPIRATORY: No accessory muscle use. Clear to auscultation. Breath sounds equal bilaterally. GASTROINTESTINAL: Abdomen soft, non-tender, nondistended. Hepatic and splenic margins not palpable. MUSCULOSKELETAL: No clubbing. No cyanosis. Left knee swelling and effusion with warmth. Decreased range of motion of the left knee. NEUROLOGICAL: Awake and alert. No obvious cranial nerve deficits. Motor grossly within normal limits. Normal speech. PSYCHIATRIC: Appropriate mood and affect; insight and judgment normal. Procedures Joint Aspiration/Injection Joint Asp./Inject. 1: Time Out Performed: Yes Side of Body: left Joint Aspirated: knee Ultrasound Guidance: No Skin Prep: sterile prep and drape Local Anesthesia Used: lidocaine 1% Amount of anesthesia used (mL): 6 Needle Size Used: 18G Fluid Obtained: turbid Total fluid obtained (mL): 20 Amount of medication injected (mL): 0 Patient Tolerated Procedure: well Complications: none Course Initial Documented Vital Signs Pulse Rate 118 H 04/11/18 09:51 Respiratory Rate 22 04/11/18 09:51 Blood Pressure 169/73 H 04/11/18 09:51 Pulse Oximetry 92 L 04/11/18 09:51 Last Documented Vital Signs Temperature 98.9 F 04/11/18 15:30 Pulse Rate 108 H 04/11/18 15:30 Respiratory Rate 20 04/11/18 15:30 Blood Pressure 123/58 L 04/11/18 15:30 Pulse Oximetry 96 04/11/18 15:30 Medical Decision Making MDM Narrative Medical decision making narrative: Patient is a 67-year-old female, past medical history significant for osteoarthritis status post left knee replacement approximately 8 months ago, who presents with complaint of left knee pain, swelling, decreased range of motion. She was febrile and tachycardic with EMS which improved slightly upon arrival here. She was given the rest of the 30/kg bolus of fluids per sepsis protocol in addition to vancomycin and Rocephin. UA does show concern of a urinary tract infection. On patient's arrival I spoke with Dr. Del Cid, her orthopedic surgeon, who asked that I attempt to aspirate the joint to send off fluid. This was done at bedside successfully. Fluid studies are pending. Patient has been admitted to Dr. Cortez, hospitalist on-call, for further management of this patient's sepsis secondary to UTI and possible septic joint. Medical Screen Exam Complete: Yes Emergency Medical Condition: Yes Differential Diagnosis Differential Diagnosis: Differential diagnosis includes but is not limited to toxic disturbance, sepsis, urinary tract infection, pneumonia, septic joint, drug withdrawal. Medical Records Medical records reviewed: Yes I reviewed the patient's medical records. Lab Data Lab results reviewed: Yes I reviewed the patient's lab results. Lab results narrative: Labs reveal CKD but relatively unremarkable. Result diagrams: 04/11/18 10:00 04/11/18 10:00 Lab Results 04/11/18 04/11/18 04/11/18 Range/Units 10:00 10:00 10:00 WBC 10.1 (4.0-11.0) th/mm3 RBC 3.52 L (4.00-5.30) mil/mm3 Hgb 11.0 L (11.6-15.3) gm/dL Hct 33.2 L (35.0-46.0) % MCV 94.2 (80.0-100.0) fL MCH 31.2 (27.0-34.0) pg MCHC 33.2 (32.0-36.0) % RDW 15.8 (11.6-17.2) % Plt Count 187 (150-450) th/mm3 MPV 7.9 (7.0-11.0) fL Neut % (Auto) 86.7 H (16.0-70.0) % Lymph % (Auto) 6.3 L (9.0-44.0) % [place] % (Auto) 6.8 (0.0-8.0) % Eos % (Auto) 0.1 (0.0-4.0) % Baso % (Auto) 0.1 (0.0-2.0) % Neut # (Auto) 8.7 H (1.8-7.7) th/mm3 Lymph # (Auto) 0.6 L (1.0-4.8) th/mm3 [place] # (Auto) 0.7 (0.0-0.9) th/mm3 Eos # (Auto) 0.0 (0.0-0.4) th/mm3 Baso # (Auto) 0.0 (0.0-0.2) th/mm3 WBC Differential . Differential Comment Auto diff final Sodium 145 (136-145) meq/L Potassium 4.2 (3.5-5.1) meq/L Chloride 111 H (98-107) meq/L Carbon Dioxide 25.6 (21.0-32.0) meq/L Anion Gap 8 (5-15) meq/L BUN 34 H (7-18) mg/dL Creatinine 2.59 H (0.50-1.00) mg/dL Estimated GFR 18 L (>89) mL/min POC Glucose (68-110) mg/dl Random Glucose 175 H (74-106) mg/dL Lactic Acid 2.0 (0.4-2.0) mmol/L Calcium 8.1 L (8.5-10.1) mg/dL Total Bilirubin 0.4 (0.2-1.0) mg/dL AST 20 (15-37) U/L ALT 12 (10-53) U/L Alkaline Phosphatase 62 (45-117) U/L Total Protein 7.3 (6.4-8.2) g/dL Albumin 3.3 L (3.4-5.0) g/dL Urine Color (Yellw/Straw) Urine Clarity (Clear) Urine pH (5.0-8.5) Ur Specific [place] (1.002-1.035) Urine Protein (Neg-Trace) mg/dL Urine Glucose (UA) (Negative) mg/dL Urine Ketones (Negative) mg/dL Urine Occult Blood (Negative) Urine Nitrate (Negative) Urine Bilirubin (Negative) Urine Urobilinogen (Less than 2) mg/dL Ur Leukocyte Esterase (Negative) Urine RBC (0-3) /hpf Urine WBC (0-5) /hpf Urine WBC Clumps (None) Ur Squamous Epith Cells (0-5) /hpf Ur Transition Epith Cell (None) /hpf Urine Bacteria (None) /hpf Micro UA Comment Urine Culture Comments Synovial Crystals (None) 04/11/18 04/11/18 04/11/18 Range/Units 10:00 10:20 14:05 WBC (4.0-11.0) th/mm3 RBC (4.00-5.30) mil/mm3 Hgb (11.6-15.3) gm/dL Hct (35.0-46.0) % MCV (80.0-100.0) fL MCH (27.0-34.0) pg MCHC (32.0-36.0) % RDW (11.6-17.2) % Plt Count (150-450) th/mm3 MPV (7.0-11.0) fL Neut % (Auto) (16.0-70.0) % Lymph % (Auto) (9.0-44.0) % [place] % (Auto) (0.0-8.0) % Eos % (Auto) (0.0-4.0) % Baso % (Auto) (0.0-2.0) % Neut # (Auto) (1.8-7.7) th/mm3 Lymph # (Auto) (1.0-4.8) th/mm3 [place] # (Auto) (0.0-0.9) th/mm3 Eos # (Auto) (0.0-0.4) th/mm3 Baso # (Auto) (0.0-0.2) th/mm3 WBC Differential Differential Comment Sodium (136-145) meq/L Potassium (3.5-5.1) meq/L Chloride (98-107) meq/L Carbon Dioxide (21.0-32.0) meq/L Anion Gap (5-15) meq/L BUN (7-18) mg/dL Creatinine (0.50-1.00) mg/dL Estimated GFR (>89) mL/min POC Glucose 172 H (68-110) mg/dl Random Glucose (74-106) mg/dL Lactic Acid (0.4-2.0) mmol/L Calcium (8.5-10.1) mg/dL Total Bilirubin (0.2-1.0) mg/dL AST (15-37) U/L ALT (10-53) U/L Alkaline Phosphatase (45-117) U/L Total Protein (6.4-8.2) g/dL Albumin (3.4-5.0) g/dL Urine Color Yellow (Yellw/Straw) Urine Clarity Cloudy H (Clear) Urine pH 6.0 (5.0-8.5) Ur Specific [place] 1.008 (1.002-1.035) Urine Protein 30 H (Neg-Trace) mg/dL Urine Glucose (UA) 50 (Negative) mg/dL Urine Ketones Negative (Negative) mg/dL Urine Occult Blood Moderate H (Negative) Urine Nitrate Negative (Negative) Urine Bilirubin Negative (Negative) Urine Urobilinogen Less than 2 (Less than 2) mg/dL Ur Leukocyte Esterase Large H (Negative) Urine RBC Less than 1 (0-3) /hpf Urine WBC (0-5) /hpf Urine WBC Clumps Moderate H (None) Ur Squamous Epith Cells 2 (0-5) /hpf Ur Transition Epith Cell 1 (None) /hpf Urine Bacteria Few H (None) /hpf Micro UA Comment Culture indicated Urine Culture Comments Culture indicated Synovial Crystals None (None) Imaging Data Attestation: I personally reviewed and interpreted this imaging study as follows : My impression: No acute cardiopulmonary process. Effusion of left knee. Radiologist's impression: Chest X-Ray 04/11/18 09:40 CONCLUSION: Negative examination. Knee X-Ray 04/11/18 09:49 CONCLUSION: Joint effusion. No evidence of acute bony injury Discharge Plan Discharge Disposition Patient Disposition: 30 Still Patient Discharge Condition Condition: Stable Discharge Details Diagnosis: Pyelonephritis, Sepsis, Acute joint effusion Physicians Team ED Provider: Vanessa Gleason Primary Care Provider: Chet Garg V Attending Provider: Kylah Cortez Other Providers: [facility],Insurance Discharge Interventions Interventions: Vital Signs Last Done: 04/11/18 14:40 Status ED Status: Admitted Patient
[2018-04-11 16:51] LABS: Appearance,Synovial Fluid Moderate (Clear); Color,Synovial Fluid Straw (Straw)
--- NOTE | 2018-04-11 17:07 | P.HPIM ---
History of Present Illness Service: Medicine Primary Care Physician: Chet Garg MD Chief Complaint: severe left knee pain History of Present Illness: This is a 67-year-old female past medical history COPD, anxiety/depression, Parkinson's, dyslipidemia, status post bilateral knee repair last knee repair was the left knee on September 17, 2017. Patient stated that last night she developed acute left knee pain. She stated that this morning she try to walk to breakfast afterwards developed severe pain so came to the emergency department. Denies any fevers or chills. Patient stated prior to this she was doing well. She denies any trauma to the knee. No other complaints. Patient had her left knee aspirated in the emergency department and per Dr. Gleason who aspirated the fluid she stated that the fluid did look cloudy in which she is suspecting septic joint. Dr. Del Cid who is her orthopedic surgeon was already consulted by Dr. Gleason emergency medicine provider. Patient denies any urinary symptoms. Inpatient Certification: I certify that the inpatient services were ordered in accordance with Medicare regulations governing the order. This includes certification that hospital inpatient services are reasonable and necessary and in the case of services not specified as inpatient-only under 42 CFR 419.22(n), that they are appropriately provided as inpatient services in accordance to with the 2-midnight benchmark under 43 CFR 412.3(e) Estimated Total Length of Stay (Days): 5 Plans for Post Hospital Care: Not yet determined Review of Systems Constitutional: Denies anorexia, Denies body ache(s), Denies chills, Denies daytime sleepiness, Denies excessive sweating, Denies fatigue, Denies fever(s), Denies headache(s), Denies increased appetite, Denies lack of energy, Denies malaise, Denies night sweats, Denies weakness, Denies weight gain, Denies weight loss, Denies other Eyes: Denies blind spots, Denies blurry vision, Denies bulging eyes, Denies change in vision, Denies double vision, Denies discharge, Denies dry eyes, Denies floaters, Denies irritation, Denies itchy eyes, Denies loss of vision, Denies pain, Denies requires corrective lenses, Denies sensitivity to light, Denies other Ears, Nose, Mouth, and Throat: Denies abnormal hearing, Denies bleeding gums, Denies bad breath, Denies change in voice, Denies dental pain, Denies difficulty swallowing, Denies dizziness, Denies dry mouth, Denies ear discharge , Denies ear pain, Denies facial pain, Denies headache(s), Denies hearing loss, Denies hoarseness, Denies lip swelling, Denies nosebleed, Denies mouth lesions, Denies mouth pain, Denies nasal congestion, Denies nasal discharge, Denies nasal obstruction, Denies nasal trauma, Denies neck lump, Denies neck pain, Denies nose pain, Denies pain with swallowing, Denies poor balance, Denies post nasal drip, Denies ringing in the ears, Denies sinus pain, Denies sinus pressure , Denies sore throat, Denies throat swelling, Denies tongue swelling, Denies other Cardiovascular: Denies chest pain, Denies chest pain at rest, Denies chest pain with activity, Denies excessive sweating, Denies fainting, Denies fast heart rate, Denies foot swelling, Denies generalized swelling, Denies irregular heart rhythm, Denies leg pain with activity, Denies leg sores, Denies leg swelling, Denies lightheadedness, Denies radiating jaw, neck or arm pain, Denies rapid, pounding, or irregular heartbeat, Denies shortness of breath, Denies shortness of breath with activity, Denies shortness of breath when lying down, Denies shortness of breath causing sudden awakening, Denies slow heart rate, Denies other Gastrointestinal: Denies abdominal pain, Denies belching, Denies black, tarry stools, Denies bloating, Denies bright, red blood in stools, Denies change in bowel habits, Denies constant urge to pass stool, Denies change in stools, Denies coffee ground vomit, Denies constipation, Denies cramping, Denies difficulty swallowing, Denies excessive passing of gas, Denies feeling full early, Denies heartburn, Denies incontinent of stools, Denies loose stools, Denies nausea, Denies pain with swallowing, Denies vomiting, Denies vomiting blood, Denies other Genitourinary: Denies abnormal periods, Denies abnormal vaginal bleeding, Denies absent period, Denies bleeding between periods, Denies blood in urine, Denies difficulty starting urination, Denies difficulty urinating, Denies dribbling after urination, Denies frequent nighttime urination, Denies genital itching, Denies genital lesions, Denies heavy periods, Denies hot flashes, Denies light periods, Denies nipple discharge, Denies painful intercourse, Denies painful periods, Denies painful urination, Denies pelvic pain, Denies prolapse symptoms, Denies sexual problems, Denies side pain, Denies urinary incontinence, Denies urinary urgency, Denies vaginal discharge, Denies vaginal dryness, Denies vaginal odor, Denies vaginal itching, Denies other Musculoskeletal: Reports abnormal walking, Reports joint pain Skin/Breast: Denies acne, Denies bleeding lesions, Denies boil, Denies breast swelling, Denies breast skin changes, Denies breast pain, Denies breast lump, Denies change in breast shape, Denies change in hair, Denies change in skin color, Denies changing lesions, Denies dry skin, Denies excessive hair growth, Denies hair loss, Denies itching, Denies lesions, Denies nail changes, Denies new lesions, Denies nipple discharge, Denies non-healing lesions, Denies redness , Denies sensitivity to light, Denies rash, Denies skin pain, Denies skin ulcer , Denies sores, Denies stretch connors, Denies unusual bruising, Denies wounds, Denies yellowing of the skin, Denies other Neurologic: Denies abnormal hearing, Denies abnormal movements, Denies abnormal speech, Denies abnormal walking, Denies behavioral changes, Denies burning sensations, Denies confusion, Denies dizziness, Denies fainting, Denies frequent falls, Denies headache(s), Denies lack of coordination, Denies localized weakness, Denies loss of vision, Denies memory loss, Denies numbness, Denies other visual disturbances, Denies radiating pain, Denies restless legs, Denies convulsions, Denies seizure-like activity, Denies sensory deficit, Denies tingling, Denies tingling/numbness/burning sensations, Denies tremor(s), Denies unsteadiness, Denies weakness, Denies other Psychiatric: Denies abnormal sleep pattern, Denies anxiety, Denies behavioral changes, Denies change in appetite, Denies change in sex drive, Denies confusion , Denies depression, Denies difficulty concentrating, Denies hearing things others do not hear, Denies hopelessness, Denies irritability, Denies lack of enjoyment, Denies memory loss, Denies mood swings, Denies panic attacks, Denies paranoia, Denies seeing things others do not see, Denies sensing things others do not sense, Denies tactile hallucinations, Denies thoughts of hurting/killing others, Denies thoughts of hurting/killing yourself, Denies other Endocrine: Denies cold intolerance, Denies excessive sweating, Denies flushing, Denies heat intolerance, Denies increased hunger, Denies increased thirst, Denies increased urination, Denies rapid, pounding, or irregular heartbeat, Denies other Hematologic/Lymphatic: Denies easy bleeding, Denies easy bruising, Denies enlarged lymph nodes, Denies other PMFSH - History History Provided By: Patient - Medical History Medical History: Medical History (Last Reviewed 04/11/18 @ 16:44 by Vanessa Gleason MD) Anxiety COPD (chronic obstructive pulmonary disease) Depression HTN (hypertension) Hyperlipidemia Osteoarthritis Parkinson disease - Surgical History Surgical History: Surgical History (Last Reviewed 04/11/18 @ 16:44 by Vanessa Gleason MD) History of knee replacement - Family History Family History: Family History (Last Updated 04/11/18 @ 17:05 by Kylah Cortez MD) Other Family history reviewed with no changes - Tobacco History Second Hand Smoke Exposure: No Tobacco Use In Past 30 Days: No Smoking Status: Former smoker - Alcohol History How Often Do You Have a Drink Containing Alcohol: Never - Substance Use History Substance History: No History of Abuse, Past History - Substance Use Type Alcohol Status: Sustained Remission Route Used: By Mouth - Travel History Recent Travel in the [facility] Within the Last 8 Weeks: No Recent Travel Out of the Country Within the Last 8 Weeks: No - Immunization History Tetanus Immunization: <5 Years Hx Influenza Vaccine This Season: Yes Medications and Allergies Active Medications: Active Medications Acetaminophen (Tylenol) 650 mg PO Q4H PRN PRN Reason: Temp > 100.4 Al Hydroxide/Mg Hydroxide (Milk Of Magnanalilia Liq) 30 ml PO Q12H PRN PRN Reason: Mild Constipation Albuterol (Ventolin Hfa Inh) 2 puff INH Q4HR PRN PRN Reason: SHORTNESS OF BREATH Albuterol (Albuterol Neb (Odilia)) 2.5 mg INH HS NEB [place] Aripiprazole (Abilify) 15 mg PO DAILY [facility] Bisacodyl (Dulcolax Supp) 10 mg RECTAL DAILY PRN PRN Reason: SEVERE CONSITIPATION Carbidopa/Levodopa (Sinemet 25/100 Mg) 1 tab PO QID [facility] Clonazepam (Klonopin) 0.5 mg PO BID [facility] Fenofibrate (Tricor) 145 mg PO HS [place] Fluticasone Propionate (Flonase Nasal Ola) 2 spray EACH NARE DAILY [facility] Fluticasone/Vilanterol (Breo Ellipta 100/25 Mcg Inh) 1 puff INH DAILY [facility] Gabapentin (Neurontin) 400 mg PO BID [facility] Sodium Chloride (Ns Inj) 1,000 mls @ 0 mls/hr IV.SIG .Q0M [place] Last Infusion: 04/11/18 11:00 Dose: Infused Sodium Chloride (Ns Inj) 1,000 mls @ 0 mls/hr IV.SIG .Q0M [facility] Last Infusion: 04/11/18 11:45 Dose: Infused Sodium Chloride (Ns Inj) 1,000 mls @ 100 mls/hr IV.CONT .Q10H [facility] Ceftriaxone Sodium 1,000 mg/ (Sodium Chloride) 100 mls @ 200 mls/hr IV.SIG Q12H [facility] Lactulose (Lactulose Liq) 30 ml PO DAILY PRN PRN Reason: SEVERE CONSITIPATION Loratadine (Claritin) 10 mg PO DAILY PRN PRN Reason: ALLERGIES Ondansetron HCl (Zofran Inj) 4 mg IV.PUSH Q6H PRN PRN Reason: NAUSEA OR VOMITING Oxcarbazepine (Trileptal) 600 mg PO BID [facility] Pantoprazole Sodium (Protonix) 40 mg PO DAILY [facility] Permethrin (Elimite 5% Cream) 1 applicatio TOPICAL ONCE [facility] Pharmacy Profile Note (Vancomycin Consult Pharmacy) 1 each OTHER ONCE [facility] Sennosides (Senokot) 17.2 mg PO Q12H PRN PRN Reason: Moderate Constipation Allergies Allergy/AdvReac Type Severity Reaction Status Date / Time apple Allergy Severe Nausea/Vomi Verified 04/11/18 09:49 ting carisoprodol Allergy Severe TREMORS Verified 04/11/18 09:49 chlorpromazine Allergy Severe unknown Verified 04/11/18 09:49 diatrizoate meglumine Allergy Severe CARDIAC Verified 04/11/18 09:49 ARREST egg Allergy Severe Nausea/Vomi Verified 04/11/18 09:49 ting gadobenic acid Allergy Severe CARDIAC Verified 04/11/18 09:49 ARREST gadodiamide Allergy Severe CARDIAC Verified 04/11/18 09:49 ARREST gadoteridol Allergy Severe CARDIAC Verified 04/11/18 09:49 ARREST haloperidol Allergy Severe Hallucinati Verified 04/11/18 09:49 ons iodine Allergy Severe CARDIAC Verified 04/11/18 09:49 ARREST iodixanol Allergy Severe CARDIAC Verified 04/11/18 09:49 ARREST iohexol Allergy Severe CARDIAC Verified 04/11/18 09:49 ARREST morphine Allergy Severe CARDIAC Verified 04/11/18 09:49 ARREST phenobarbital Allergy Severe HYPOKALEMIA Verified 04/11/18 09:49 potassium iodide Allergy Severe CARDIAC Verified 04/11/18 09:49 ARREST povidone-iodine Allergy Severe CARDIAC Verified 04/11/18 09:49 ARREST shrimp Allergy Severe Nausea/Vomi Verified 04/11/18 09:49 ting sodium iodide Allergy Severe CARDIAC Verified 04/11/18 09:49 ARREST sodium iodide Allergy Severe CARDIAC Verified 04/11/18 09:49 ARREST thioridazine Allergy Severe CARDIAC Verified 04/11/18 09:49 ARREST walnut Allergy Severe Nausea/Vomi Verified 04/11/18 09:49 ting lithium Allergy Intermediate EDEMA/DIARR Verified 04/11/18 09:49 HEA codeine Allergy Unknown Hallucinati Verified 04/11/18 09:49 ons aspirin AdvReac Severe Nausea/Vomi Verified 04/11/18 09:49 ting Penicillins AdvReac Mild Nausea/Vomi Verified 04/11/18 09:49 ting alcohol AdvReac Nausea/Vomi Verified 04/11/18 09:49 ting Home Medications Medication Instructions Recorded Confirmed Type albuterol sulfate 2.5 mg INHALATION HS 04/11/18 04/11/18 History aripiprazole [Abilify] 15 mg PO DAILY 04/11/18 04/11/18 History carbidopa-levodopa [Sinemet] 1 tab PO QID 04/11/18 04/11/18 History clonazepam [Klonopin] 0.5 mg PO BID 04/11/18 04/11/18 History fenofibrate nanocrystallized 145 mg PO HS 04/11/18 04/11/18 History [Tricor] fluticasone [Flonase Allergy 2 spray INTRANASAL DAILY 04/11/18 04/11/18 History Relief] fluticasone-vilanterol [Breo 1 puff INHALATION DAILY 04/11/18 04/11/18 History Ellipta] gabapentin 400 mg PO QID 04/11/18 04/11/18 History guaifenesin [Mucinex] 600 mg PO Q12H 04/11/18 04/11/18 History ipratropium-albuterol [Combivent 2 puff INHALATION Q4HR PRN 04/11/18 04/11/18 History Respimat] loratadine [Claritin] 10 mg PO DAILY PRN 04/11/18 04/11/18 History omeprazole 40 mg PO DAILY 04/11/18 04/11/18 History oxcarbazepine [Trileptal] 600 mg PO BID 04/11/18 04/11/18 History permethrin [Elimite] 1 applic TOPICAL ONCE 04/11/18 04/11/18 History trazodone 150 mg PO HS 04/11/18 04/11/18 History Exam Vital signs: Vital Signs 04/11/18 09:51 04/11/18 09:59 04/11/18 10:03 Temperature 99.9 F H Pulse Rate 118 H 116 H Respiratory Rate 22 22 Blood Pressure 169/73 H Pulse Oximetry 92 L 97 04/11/18 10:49 04/11/18 12:40 04/11/18 13:15 Temperature 99 F Pulse Rate 110 H 120 H 118 H Respiratory Rate 22 20 22 Blood Pressure 194/132 H 155/68 H 155/68 H Pulse Oximetry 97 95 96 04/11/18 14:40 04/11/18 15:30 04/11/18 16:46 Temperature 98.9 F 99.6 F Pulse Rate 116 H 108 H 106 H Respiratory Rate 24 20 22 Blood Pressure 178/73 H 123/58 L Pulse Oximetry 95 96 97 Intake & Output 04/10/18 04/11/18 04/11/18 18:59 06:59 18:59 Intake Total 2615 / 2615 Balance 2615 / 2615 Weight 102.965 kg Intake: IV 2615 / 2615 NS Inj 1,000 ML @ Wide Open IV. 1999 SIG .Q0M [facility] Rx#:[id number] Vancomycin Inj 1,500 MG In NS 515 / 515 Inj 500 ML @ 250 mls/hr IV.SIG ONCE ONE Rx#:[id number] Rocephin Inj 1,000 MG In NS Inj 100 / 100 100 ML @ 200 mls/hr IV.SIG ONCE ONE Rx#:[id number] - Constitutional no acute distress - Routine HEENT Exam Head: Present: normocephalic, atraumatic ENT: Present: mucous membranes dry - Routine Neck Exam Present: supple, full ROM - Routine Respiratory Exam Present: CTA bilaterally - Routine Cardiovascular Exam Present: RRR, S1, S2 Comments: No rubs murmurs or gallops. - Routine Abdominal Exam Present: soft, normoactive bowel sounds Comments: No tenderness to palpation. Negative peritoneal signs. - Routine Extremities Exam Present: edema Comments: Left knee positive for swelling and warmth to touch. Positive tenderness to palpation. No erythema noted. Unable to perform range of motion of the left knee secondary to severe pain. - Routine Skin Exam Present: dry - Routine Neurological Exam Present: alert, oriented X3, normal tone Results - Labs CBC & Chem 7: 04/11/18 10:00 04/11/18 10:00 Labs: Short CBC 04/11/18 Range/Units 10:00 WBC 10.1 (4.0-11.0) th/mm3 Hgb 11.0 L (11.6-15.3) gm/dL Hct 33.2 L (35.0-46.0) % Plt Count 187 (150-450) th/mm3 BMP 04/11/18 10:00 Sodium 145 Potassium 4.2 Chloride 111 H Carbon Dioxide 25.6 BUN 34 H Creatinine 2.59 H Calcium 8.1 L Liver Function 04/11/18 Range/Units 10:00 Total Bilirubin 0.4 (0.2-1.0) mg/dL AST 20 (15-37) U/L ALT 12 (10-53) U/L Alkaline Phosphatase 62 (45-117) U/L Albumin 3.3 L (3.4-5.0) g/dL Urine 04/11/18 Range/Units 10:00 Urine Color Yellow (Yellw/Straw) Urine Clarity Cloudy H (Clear) Urine pH 6.0 (5.0-8.5) Ur Specific Burna 1.008 (1.002-1.035) Urine Protein 30 H (Neg-Trace) mg/dL Urine Glucose (UA) 50 (Negative) mg/dL - Imaging Impressions Chest X-Ray 04/11/18 09:40 CONCLUSION: Negative examination. Knee X-Ray 04/11/18 09:49 CONCLUSION: Joint effusion. No evidence of acute bony injury Caprini VTE Risk Assessment Caprini VTE Risk Assessment: Moderate/High Risk (score >= 2) Caprini Risk Assessment Model: Point Value = 1 Point Value = 2 Point Value = 3 Point Value = 5 Age 41-60 Minor surgery BMI > 25 kg/m2 Swollen legs Varicose veins or History of unexplained or recurrent spontaneous Oral contraceptives or hormone replacement Sepsis (< 1 month) Serious lung disease, including pneumonia (< 1 month) Abnormal pulmonary function Acute myocardial infarction Congestive heart failure (< 1 month) History of inflammatory bowel disease Medical patient at bed rest Age 61-74 Arthroscopic surgery Major open surgery (> 45 min) Laparoscopic surgery (> 45 min) Malignancy Confined to bed (> 72 hours) Immobilizing plaster cast Central venous access Age >= 75 History of VTE Family history of VTE Factor V Leiden Prothrombin [id number] Lupus anticoagulant Anticardiolipin antibodies Elevated serum homocysteine Heparin-induced thrombocytopenia Other congenital or acquired thrombophilia Stroke (< 1 month) Elective arthroplasty Hip, pelvis, or leg fracture Acute spinal cord injury (< 1 month) Prophylaxis Regimen: Total Risk Factor Score Risk Level Prophylaxis Regimen 0-1 Low Early ambulation 2 Moderate Order ONE of the following: *Sequential Compression Device (SCD) *Heparin 5000 units SQ BID 3-4 Higher Order ONE of the following medications: *Heparin 5000 units SQ TID *Enoxaparin/Lovenox 40 mg SQ daily (WT < 150 kg, CrCl > 30 mL/min) *Enoxaparin/Lovenox 30 mg SQ daily (WT < 150 kg, CrCl > 10-29 mL/min) *Enoxaparin/Lovenox 30 mg SQ BID (WT < 150 kg, CrCl > 30 mL/min) AND/OR *Sequential Compression Device (SCD) 5 or more Highest Order ONE of the following medications: *Heparin 5000 units SQ TID (Preferred with Epidurals) *Enoxaparin/Lovenox 40 mg SQ daily (WT < 150 kg, CrCl > 30 mL/min) *Enoxaparin/Lovenox 30 mg SQ daily (WT < 150 kg, CrCl > 10-29 mL/min) *Enoxaparin/Lovenox 30 mg SQ BID (WT < 150 kg, CrCl > 30 mL/min) AND *Sequential Compression Device (SCD) Assessment and Plan - Plan This is a 67-year-old female with a history of bilateral knee replacement who presented with abrupt onset of left knee pain Left knee pain, abrupt onset -Concerning for septic joint. Dr. Del Cid orthopedic surgeon already consulted. -Status post aspiration of joint in the emergency department by Dr. Gleason pending synovial fluid studies and cultures. -Patient was given vancomycin and Rocephin in the emergency department. Will continue with Rocephin and vancomycin. Will have pharmacy dose vancomycin. Tachycardia -Most likely secondary to a combination of dehydration, anxiety, and pain. -We will give IV fluids since patient is dehydrated. -Restart home medication and control pain. We will monitor closely. Chronic kidney disease -Patient is at baseline. Creatinine is 2.59 with GFR of 18. Avoid nephrotoxins. Continue to monitor creatinine. Strict ins and outs. Hyperglycemia -Patient has no history of diabetes will check hemoglobin A1c. Start patient on insulin sliding scale. Asymptomatic bacteriuria -Patient is on Rocephin pending urine cultures. Elevated blood pressure -Patient denies any history of hypertension. Will monitor. Will give as needed if needed. Will also add antihypertensive medication as needed. If she has no history of it and may be secondary to pain. Will monitor Parkinson/COPD/depression/anxiety/dyslipidemia -Continue with home medication. DVT prophylaxis -SCDs. We will hold off on chemoprophylaxis secondary to possible procedure.
[2018-04-11] MEDS: Sod Chloride 0.9% Inj 1,000 ML IV.CONT SCH (17:37)
[2018-04-11] MEDS: Fenofibrate 145 MG Tablet PO SCH (20:00)
[2018-04-11] MEDS: clonazePAM 0.5 MG Tablet PO SCH (20:00)
[2018-04-11] MEDS: Gabapentin 400 MG Capsule PO SCH (20:00)
[2018-04-11] MEDS: OXcarbazepine 600 MG Tablet PO SCH (22:27)
[2018-04-11] MEDS ORDERED: traZODone 50 MG Tablet PO ONE (23:02)
[2018-04-12] MEDS: Sod Chloride 0.9% Inj 1,000 ML IV.CONT SCH ×3 (04:49→21:47)
[2018-04-12] MEDS: Gabapentin 400 MG Capsule PO SCH ×2 (08:30→21:44)
[2018-04-12] MEDS: OXcarbazepine 600 MG Tablet PO SCH ×2 (08:30→21:45)
[2018-04-12] MEDS: clonazePAM 0.5 MG Tablet PO SCH ×2 (08:30→21:45)
[2018-04-12 08:54] LABS: Baso % (Auto) 0.2 % (0.0-2.0); Eos % (Auto) 0.1 % (0.0-4.0); Hematocrit 29.8 % (35.0-46.0); Hemoglobin 10.1 gm/dL (11.6-15.3); Lymph # (Auto) 1.1 th/mm3 (1.0-4.8); Lymph % (Auto) 14.8 % (9.0-44.0); Mean Corpuscular HGB Conc 33.7 % (32.0-36.0); Mean Corpuscular Hemoglobin 32.1 pg (27.0-34.0); Mean Corpuscular Volume 95.2 fL (80.0-100.0); Mean Platelet Volume 7.7 fL (7.0-11.0); Mono # (Auto) 0.7 th/mm3 (0.0-0.9); Mono % (Auto) 9.7 % (0.0-8.0); Neut # (Auto) 5.6 th/mm3 (1.8-7.7); Neut % (Auto) 75.2 % (16.0-70.0); Platelet Count 161 th/mm3 (150-450); Red Blood Count 3.13 mil/mm3 (4.00-5.30); Red Cell Distribution Width 16.4 % (11.6-17.2); White Blood Count 7.4 th/mm3 (4.0-11.0)
[2018-04-12 09:49] LABS: Calcium 8.4 mg/dL (8.5-10.1); Potassium 4.2 meq/L (3.5-5.1); Vancomycin,Random 11.7 Comment
--- NOTE | 2018-04-12 11:49 | P.PN ---
Subjective Interval history: Follow-up left septic joint April 12 2018-patient seen and examined, complains of left knee pain, afebrile. Currently n.p.o. Physical Exam Vital signs: Vital Signs 04/11/18 12:40 04/11/18 13:15 04/11/18 14:40 Temperature 99 F Pulse Rate 120 H 118 H 116 H Respiratory Rate 20 22 24 Blood Pressure 155/68 H 155/68 H 178/73 H Pulse Oximetry 95 96 95 04/11/18 15:30 04/11/18 16:46 04/11/18 17:45 Temperature 98.9 F 99.6 F 99.5 F Pulse Rate 108 H 106 H 104 H Respiratory Rate 20 22 18 Blood Pressure 123/58 L 167/74 H Pulse Oximetry 96 97 96 04/11/18 20:00 04/11/18 22:35 04/11/18 22:38 Temperature 99.8 F H Pulse Rate 110 H 96 H Respiratory Rate 20 18 Blood Pressure 159/72 H Pulse Oximetry 94 L 97 04/12/18 00:00 04/12/18 04:00 04/12/18 06:16 Temperature 97.9 F 98.0 F Pulse Rate 110 H 93 H 103 H Respiratory Rate 20 20 Blood Pressure 128/60 146/71 H Pulse Oximetry 91 L 92 L 04/12/18 08:00 04/12/18 09:00 Temperature 97.9 F Pulse Rate 90 99 H Respiratory Rate 17 Blood Pressure 149/73 H Pulse Oximetry 96 Intake & Output 04/11/18 04/12/18 04/12/18 18:59 06:59 18:59 Intake Total 2615 / 2615 1220 / 1220 100 / 100 Output Total 1500 / 1500 Balance 2615 / 2615 -280 / -280 100 / 100 Weight 108.1 kg 108.6 kg Intake: IV 2615 / 2615 1100 / 1100 100 / 100 NS Inj 1,000 ML @ 100 mls/hr IV 1000 / 1000 .CONT .Q10H [facility] Rx#:[id number] NS Inj 1,000 ML @ Wide Open IV. 1999 / 1999 SIG .Q0M [facility] Rx#:[id number] Vancomycin Inj 1,500 MG In NS 515 / 515 Inj 500 ML @ 250 mls/hr IV.SIG ONCE ONE Rx#:[id number] Rocephin Inj 1,000 MG In NS Inj 100 / 100 100 / 100 100 / 100 100 ML @ 200 mls/hr IV.SIG Q12H TOO Rx#:[id number] Oral 120 / 120 Output: Urine 1500 / 1500 Other: Date of Last Bowel Movement 04/11/18 04/11/18 Weight On Admission 108.1 kg Narrative: GENERAL: NAD SKIN: Warm and dry. HEAD: Normocephalic. EYES: No scleral icterus. No injection or drainage. NECK: Supple, trachea midline. No JVD or lymphadenopathy. CARDIOVASCULAR: Regular rate and rhythm without murmurs, gallops, or rubs. RESPIRATORY: Breath sounds equal bilaterally. No accessory muscle use. GASTROINTESTINAL: Abdomen soft, non-tender, nondistended. MUSCULOSKELETAL: No cyanosis, or edema. Left knee warm to touch and TTP without any erythema BACK: Nontender without obvious deformity. No CVA tenderness. Results - Labs CBC & Chem 7: 04/12/18 08:15 04/12/18 08:15 Laboratory Results - last 24 hr 04/11/18 04/11/18 04/12/18 14:05 14:05 08:15 WBC 7.4 RBC 3.13 L Hgb 10.1 L Hct 29.8 L MCV 95.2 MCH 32.1 MCHC 33.7 RDW 16.4 Plt Count 161 MPV 7.7 Neut % (Auto) 75.2 H Lymph % (Auto) 14.8 [place] % (Auto) 9.7 H Eos % (Auto) 0.1 Baso % (Auto) 0.2 Neut # (Auto) 5.6 Lymph # (Auto) 1.1 [place] # (Auto) 0.7 Eos # (Auto) 0.0 Baso # (Auto) 0.0 WBC Differential . Differential Comment Auto diff final Sodium Potassium Chloride Carbon Dioxide Anion Gap BUN Creatinine Estimated GFR Random Glucose Calcium Synovial Color Straw Synovial Appearance Moderate H Synovial RBC 1620 H Synovial Nuc Cells 9500 H Synovial Neutrophils 95 H Synovial Lymphocytes 1 Synovial Monocytes 4 Synovial Crystals None Random Vancomycin 04/12/18 08:15 WBC RBC Hgb Hct MCV MCH MCHC RDW Plt Count MPV Neut % (Auto) Lymph % (Auto) [place] % (Auto) Eos % (Auto) Baso % (Auto) Neut # (Auto) Lymph # (Auto) [place] # (Auto) Eos # (Auto) Baso # (Auto) WBC Differential Differential Comment Sodium 151 H Potassium 4.2 Chloride 120 H D Carbon Dioxide 23.0 Anion Gap 8 BUN 30 H Creatinine 2.49 H Estimated GFR 19 L Random Glucose 106 Calcium 8.4 L Synovial Color Synovial Appearance Synovial RBC Synovial Nuc Cells Synovial Neutrophils Synovial Lymphocytes Synovial Monocytes Synovial Crystals Random Vancomycin 11.7 Microbiology 04/11/18 10:00 Blood - Peripheral Aerobic Blood Culture - Preliminary No growth in 1 day 04/11/18 10:00 Blood - Peripheral Anaerobic Blood Culture - Preliminary No growth in 1 day 04/11/18 10:00 Blood - Peripheral Aerobic Blood Culture - Preliminary No growth in 1 day 04/11/18 10:00 Blood - Peripheral Anaerobic Blood Culture - Preliminary No growth in 1 day 04/11/18 14:05 Fluid - Synovial Fluid Gram Stain - Final - Imaging Impressions Chest X-Ray 04/11/18 09:40 CONCLUSION: Negative examination. Knee X-Ray 04/11/18 09:49 CONCLUSION: Joint effusion. No evidence of acute bony injury Assessment and Plan - Plan 67-year-old female with Left septic joint status post knee joint aspiration in ED On vancomycin and Rocephin pending further evaluation from orthopedic surgery Monitor culture report Will consult infectious disease specialist Chronic kidney disease Avoid nephrotoxins. Continue to monitor creatinine. Hyperglycemia hemoglobin A1c pending. Asymptomatic bacteriuria on Rocephin pending urine cultures. Elevated blood pressure Continue to monitor, start oral antihypertensive medication as needed Parkinson/COPD/depression/anxiety/dyslipidemia Continue with home medication. DVT prophylaxis -SCDs. We will hold off on chemoprophylaxis secondary to possible procedure.
--- NOTE | 2018-04-12 12:43 | ECG ---
Date Performed: 04/11/2018 Time Performed: 10:57:28 PTAGE: 67 years EKG: NORMAL Sinus rhythm LEFT ATRIAL ABNORMALITY POOR R-WAVE PROGRESSION SLIGHT NONSPECIFIC IVCD ABNORMAL ECG Since PREVIOUS TRACING , no significant change noted PREVIOUS TRACIN09/07/2017 09.32 DOCTOR: Ayo Kumar Interpretating Date/Time 04/12/2018 12:42:48
[2018-04-12] MEDS ORDERED: Vancomycin Inj 1,500 MG in Sodium Chlor 0.9% Inj 500 ML IV.SIG ONE (14:00)
--- NOTE | 2018-04-12 15:24 | P.CONID ---
History of Present Illness Service: Infectious disease Consult date: 04/12/18 Requesting Physician: Sorin Seals Reason for Consult: Evaluate patient with septic knee Primary Care Provider: Chet Garg MD Family Provider: Chet Garg MD Chief Complaint: severe left knee pain History of Present Illness: Patient seen and examined. Records reviewed. Patient is a 67-year-old female, [facility], brought into the hospital for evaluation of acute left knee pain. Patient has had prior bilateral knee replacement, and the night prior to admission she stated that she was limping. When she woke up the following day, she had noted swelling on her left knee, and severe pain that she could not walk. Normally she walks using a walker. She has not had any fever chills or sweats. Patient stated that she fell about 2 weeks ago, but did not sustain any kind of injury. She apparently also was given an antibiotic for some skin infection that she had in her arms in the least several weeks. Patient after she had her surgery on the left knee back in August 2017 had an uncomplicated course. Since admission she has had low-grade temps. Her WBC is normal. Arthrocentesis of the left knee was done and it showed leukocytosis, and it is now growing staph aureus. Infectious disease consultation has been requested to evaluate the patient. Review of Systems Constitutional: Denies chills, Denies fever(s), Denies malaise, Denies night sweats Eyes: Denies discharge, Denies dry eyes Ears, Nose, Mouth, and Throat: Denies difficulty swallowing, Denies facial pain , Denies mouth pain, Denies nasal congestion, Denies nasal discharge, Denies sore throat Cardiovascular: Denies chest pain, Denies shortness of breath Respiratory: Denies chest congestion, Denies cough, Denies shortness of breath Gastrointestinal: Denies abdominal pain, Denies loose stools, Denies nausea, Denies pain with swallowing, Denies vomiting Genitourinary: Reports urinary incontinence, Denies painful urination Musculoskeletal: Reports joint pain, Reports joint swelling, Reports limited joint movement, Denies back pain Skin/Breast: Reports itching, Denies dry skin Neurologic: Denies headache(s) PMFSH - History History Provided By: Patient - Medical History Medical History: Medical History (Last Updated 04/12/18 @ 15:17 by Mildred Abdullahi MD) Anxiety COPD (chronic obstructive pulmonary disease) Chronic kidney disease (CKD) Depression HTN (hypertension) Hyperlipidemia Osteoarthritis Parkinson disease - Surgical History Surgical History: Surgical History (Last Reviewed 04/12/18 @ 15:17 by Mildred Abdullahi MD) History of knee replacement - Family History Family History: Family History (Last Updated 04/11/18 @ 17:05 by Kylah Cortez MD) Other Family history reviewed with no changes - Tobacco History Second Hand Smoke Exposure: No Tobacco Use In Past 30 Days: No Smoking Status: Former smoker Tobacco Type: Cigarettes - Alcohol History How Often Do You Have a Drink Containing Alcohol: Never - Substance Use History Substance History: Past History - Substance Use Type Alcohol Type: marijuana, alcohol Status: Sustained Remission Route Used: By Mouth Reason for Use: Calm Down, Feels Good - Travel History Recent Travel in the [place] Within the Last 8 Weeks: No Recent Travel Out of the Country Within the Last 8 Weeks: No - Immunization History Tetanus Immunization: Unable to Assess Hx Influenza Vaccine This Season: Yes Medications and Allergies Active Medications: Active Medications Acetaminophen (Tylenol) 650 mg PO Q4H PRN PRN Reason: Temp > 100.4 Al Hydroxide/Mg Hydroxide (Milk Of Joan Liq) 30 ml PO Q12H PRN PRN Reason: Mild Constipation Albuterol (Ventolin Hfa Inh) 2 puff INH Q4HR PRN PRN Reason: SHORTNESS OF BREATH Albuterol (Albuterol Neb (Odilia)) 2.5 mg INH HS NEB [facility] Aripiprazole (Abilify) 15 mg PO DAILY [facility] Last Admin: 04/12/18 08:31 Dose: 15 mg Bisacodyl (Dulcolax Supp) 10 mg RECTAL DAILY PRN PRN Reason: SEVERE CONSITIPATION Carbidopa/Levodopa (Sinemet 25/100 Mg) 1 tab PO QID [facility] Last Admin: 04/12/18 13:38 Dose: 1 tab Clonazepam (Klonopin) 0.5 mg PO BID [facility] Last Admin: 04/12/18 08:30 Dose: 0.5 mg Fenofibrate (Tricor) 145 mg PO HS [facility] Last Admin: 04/11/18 20:00 Dose: 145 mg Fluticasone Propionate (Flonase Nasal [place]) 2 spray EACH NARE DAILY [facility] Last Admin: 04/12/18 11:13 Dose: 2 spray Fluticasone/Vilanterol (Breo Ellipta 100/25 Mcg Inh) 1 puff INH DAILY [facility] Last Admin: 04/12/18 11:14 Dose: 1 puff Gabapentin (Neurontin) 400 mg PO BID [facility] Last Admin: 04/12/18 08:30 Dose: 400 mg Sodium Chloride (Ns Inj) 1,000 mls @ 0 mls/hr IV.SIG .Q0M [facility] Last Infusion: 04/11/18 11:00 Dose: Infused Sodium Chloride (Ns Inj) 1,000 mls @ 0 mls/hr IV.SIG .Q0M [facility] Last Infusion: 04/11/18 11:45 Dose: Infused Sodium Chloride (Ns Inj) 1,000 mls @ 100 mls/hr IV.CONT .Q10H [facility] Last Admin: 04/12/18 11:19 Dose: Not Given Ceftriaxone Sodium 1,000 mg/ (Sodium Chloride) 100 mls @ 200 mls/hr IV.SIG Q12H [facility] Last Infusion: 04/12/18 11:42 Dose: Infused Vancomycin HCl 1,500 mg/ (Sodium Chloride) 515 mls @ 250 mls/hr IV.SIG ONCE ONE Stop: 04/12/18 16:03 Last Admin: 04/12/18 13:53 Dose: 250 mls/hr Lactulose (Lactulose Liq) 30 ml PO DAILY PRN PRN Reason: SEVERE CONSITIPATION Loratadine (Claritin) 10 mg PO DAILY PRN PRN Reason: ALLERGIES Ondansetron HCl (Zofran Inj) 4 mg IV.PUSH Q6H PRN PRN Reason: NAUSEA OR VOMITING Oxcarbazepine (Trileptal) 600 mg PO BID [facility] Last Admin: 04/12/18 08:30 Dose: 600 mg Oxycodone/Acetaminophen (Percocet 5/325 Mg) 1 tab PO Q4H PRN PRN Reason: pain 1 to 10 Last Admin: 04/12/18 11:19 Dose: 1 tab Pantoprazole Sodium (Protonix) 40 mg PO DAILY [facility] Last Admin: 04/12/18 08:31 Dose: 40 mg Permethrin (Elimite 5% Cream) 1 applicatio TOPICAL ONCE [facility] Pharmacy Profile Note (Vancomycin Consult Pharmacy) 1 each OTHER ONCE [facility] Sennosides (Senokot) 17.2 mg PO Q12H PRN PRN Reason: Moderate Constipation Allergies Allergy/AdvReac Type Severity Reaction Status Date / Time apple Allergy Severe Nausea/Vomi Verified 04/11/18 09:49 ting carisoprodol Allergy Severe TREMORS Verified 04/11/18 09:49 chlorpromazine Allergy Severe unknown Verified 04/11/18 09:49 diatrizoate meglumine Allergy Severe CARDIAC Verified 04/11/18 09:49 ARREST egg Allergy Severe Nausea/Vomi Verified 04/11/18 09:49 ting gadobenic acid Allergy Severe CARDIAC Verified 04/11/18 09:49 ARREST gadodiamide Allergy Severe CARDIAC Verified 04/11/18 09:49 ARREST gadoteridol Allergy Severe CARDIAC Verified 04/11/18 09:49 ARREST haloperidol Allergy Severe Hallucinati Verified 04/11/18 09:49 ons iodine Allergy Severe CARDIAC Verified 04/11/18 09:49 ARREST iodixanol Allergy Severe CARDIAC Verified 04/11/18 09:49 ARREST iohexol Allergy Severe CARDIAC Verified 04/11/18 09:49 ARREST morphine Allergy Severe CARDIAC Verified 04/11/18 09:49 ARREST phenobarbital Allergy Severe HYPOKALEMIA Verified 04/11/18 09:49 potassium iodide Allergy Severe CARDIAC Verified 04/11/18 09:49 ARREST povidone-iodine Allergy Severe CARDIAC Verified 04/11/18 09:49 ARREST shrimp Allergy Severe Nausea/Vomi Verified 04/11/18 09:49 ting sodium iodide Allergy Severe CARDIAC Verified 04/11/18 09:49 ARREST sodium iodide Allergy Severe CARDIAC Verified 04/11/18 09:49 ARREST thioridazine Allergy Severe CARDIAC Verified 04/11/18 09:49 ARREST walnut Allergy Severe Nausea/Vomi Verified 04/11/18 09:49 ting lithium Allergy Intermediate EDEMA/DIARR Verified 04/11/18 09:49 HEA codeine Allergy Unknown Hallucinati Verified 04/11/18 09:49 ons aspirin AdvReac Severe Nausea/Vomi Verified 04/11/18 09:49 ting Penicillins AdvReac Mild Nausea/Vomi Verified 04/11/18 09:49 ting alcohol AdvReac Nausea/Vomi Verified 04/11/18 09:49 ting Home Medications Medication Instructions Recorded Confirmed Type albuterol sulfate 2.5 mg INHALATION HS 04/11/18 04/11/18 History aripiprazole [Abilify] 15 mg PO DAILY 04/11/18 04/11/18 History carbidopa-levodopa [Sinemet] 1 tab PO QID 04/11/18 04/11/18 History clonazepam [Klonopin] 0.5 mg PO BID 04/11/18 04/11/18 History fenofibrate nanocrystallized 145 mg PO HS 04/11/18 04/11/18 History [Tricor] fluticasone [Flonase Allergy 2 spray INTRANASAL DAILY 04/11/18 04/11/18 History Relief] fluticasone-vilanterol [Breo 1 puff INHALATION DAILY 04/11/18 04/11/18 History Ellipta] gabapentin 400 mg PO QID 04/11/18 04/11/18 History guaifenesin [Mucinex] 600 mg PO Q12H 04/11/18 04/11/18 History ipratropium-albuterol [Combivent 2 puff INHALATION Q4HR PRN 04/11/18 04/11/18 History Respimat] loratadine [Claritin] 10 mg PO DAILY PRN 04/11/18 04/11/18 History omeprazole 40 mg PO DAILY 04/11/18 04/11/18 History oxcarbazepine [Trileptal] 600 mg PO BID 04/11/18 04/11/18 History permethrin [Elimite] 1 applic TOPICAL ONCE 04/11/18 04/11/18 History trazodone 150 mg PO HS 04/11/18 04/11/18 History Exam Vital signs: Vital Signs 04/11/18 15:30 04/11/18 16:46 04/11/18 17:45 Temperature 98.9 F 99.6 F 99.5 F Pulse Rate 108 H 106 H 104 H Respiratory Rate 20 22 18 Blood Pressure 123/58 L 167/74 H Pulse Oximetry 96 97 96 04/11/18 20:00 04/11/18 22:35 04/11/18 22:38 Temperature 99.8 F H Pulse Rate 110 H 96 H Respiratory Rate 20 18 Blood Pressure 159/72 H Pulse Oximetry 94 L 97 04/12/18 00:00 04/12/18 04:00 04/12/18 06:16 Temperature 97.9 F 98.0 F Pulse Rate 110 H 93 H 103 H Respiratory Rate 20 20 Blood Pressure 128/60 146/71 H Pulse Oximetry 91 L 92 L 04/12/18 08:00 04/12/18 09:00 04/12/18 12:00 Temperature 97.9 F 98.3 F Pulse Rate 90 99 H 92 H Respiratory Rate 17 17 Blood Pressure 149/73 H 146/67 H Pulse Oximetry 96 96 Intake & Output 04/11/18 04/12/18 04/12/18 18:59 06:59 18:59 Intake Total 2615 / 2615 1220 / 1220 100 / 100 Output Total 1500 / 1500 Balance 2615 / 2615 -280 / -280 100 / 100 Weight 108.1 kg 108.6 kg Intake: IV 2615 / 2615 1100 / 1100 100 / 100 NS Inj 1,000 ML @ 100 mls/hr IV 1000 / 1000 .CONT .Q10H [facility] Rx#:[id number] NS Inj 1,000 ML @ Wide Open IV. 1999 / 1999 SIG .Q0M [facility] Rx#:[id number] Vancomycin Inj 1,500 MG In NS 515 / 515 Inj 500 ML @ 250 mls/hr IV.SIG ONCE ONE Rx#:[id number] Rocephin Inj 1,000 MG In NS Inj 100 / 100 100 / 100 100 / 100 100 ML @ 200 mls/hr IV.SIG Q12H [facility] Rx#:[id number] Oral 120 / 120 Output: Urine 1500 / 1500 Other: Date of Last Bowel Movement 04/11/18 04/11/18 Weight On Admission 108.1 kg Narrative: Physical Examination GENERAL: Patient is an obese, well-developed female, awake and alert, not in respiratory distress. SKIN: Cool and dry. No generalized rash, no ecchymoses and no evidence of embolic lesions. HEAD: Atraumatic. Normocephalic. No temporal wasting, or tenderness. EYES: [place] conjunctiva. No petechia or hemorrhage. Pupils equal, round and reactive to light. Extraocular movements full and intact. No scleral icterus. No injection or drainage. EARS, NOSE AND THROAT: Nose without bleeding or purulent nasal discharge. No sinus tenderness. Mucous membranes pink and moist. No oral lesions noted. NECK: Trachea midline. Supple and not tender, no meningeal signs CARDIOVASCULAR: Regular rate and rhythm. No murmurs, rubs or gallops heard RESPIRATORY: Clear to auscultation. Breath sounds equal bilaterally. No rales , wheezing or rhonchi ABDOMEN: Soft, non-tender, nondistended. Bowel sounds present and normoactive. No guarding. No rebound. No organomegaly. EXTREMITIES: No clubbing, cyanosis. RLE has scar on knee C/W surgical Hx. LLE - has swelling on her L knee, with severe pain with any movement and she refused to do any ROM, (+) heat. No calf tenderness. Well perfused and warm. NEUROLOGICAL: Awake and alert. Cranial nerves grossly intact. Motor grossly within normal limits. PSYCHIATRIC: Normal affect, calm and cooperative. LINE: No evidence of infection Results - Labs CBC & Chem 7: 04/12/18 08:15 04/12/18 08:15 Labs: Laboratory Results - last 24 hr 04/11/18 04/11/18 04/12/18 14:05 14:05 08:15 WBC 7.4 RBC 3.13 L Hgb 10.1 L Hct 29.8 L MCV 95.2 MCH 32.1 MCHC 33.7 RDW 16.4 Plt Count 161 MPV 7.7 Neut % (Auto) 75.2 H Lymph % (Auto) 14.8 [place] % (Auto) 9.7 H Eos % (Auto) 0.1 Baso % (Auto) 0.2 Neut # (Auto) 5.6 Lymph # (Auto) 1.1 [place] # (Auto) 0.7 Eos # (Auto) 0.0 Baso # (Auto) 0.0 WBC Differential . Differential Comment Auto diff final Sodium Potassium Chloride Carbon Dioxide Anion Gap BUN Creatinine Estimated GFR Random Glucose Calcium Synovial Color Straw Synovial Appearance Moderate H Synovial RBC 1620 H Synovial Nuc Cells 9500 H Synovial Neutrophils 95 H Synovial Lymphocytes 1 Synovial Monocytes 4 Synovial Crystals None Random Vancomycin 04/12/18 08:15 WBC RBC Hgb Hct MCV MCH MCHC RDW Plt Count MPV Neut % (Auto) Lymph % (Auto) [place] % (Auto) Eos % (Auto) Baso % (Auto) Neut # (Auto) Lymph # (Auto) [place] # (Auto) Eos # (Auto) Baso # (Auto) WBC Differential Differential Comment Sodium 151 H Potassium 4.2 Chloride 120 H D Carbon Dioxide 23.0 Anion Gap 8 BUN 30 H Creatinine 2.49 H Estimated GFR 19 L Random Glucose 106 Calcium 8.4 L Synovial Color Synovial Appearance Synovial RBC Synovial Nuc Cells Synovial Neutrophils Synovial Lymphocytes Synovial Monocytes Synovial Crystals Random Vancomycin 11.7 - Imaging Chest X-Ray 04/11/18 09:40 CONCLUSION: Negative examination. Knee X-Ray 04/11/18 09:49 CONCLUSION: Joint effusion. No evidence of acute bony injury Assessment and Plan - Plan Impression Septic L knee, S/P LTKA, C/S Staph aureus Hx Parkinson's COPD Chronic kidney disease Recommendation IV Ancef IV Vanco - got one dose, check level and redose - will ask pharmacy to assist with dosing Follow C/S If MSSA, continue Ancef If MRSA, IV vanco Ortho to evaluate patient - will need surgery on her L knee (has prosthesis in place) Baseline ESR and CRP Monitor progress I will follow along with you Thank you for this consultation
[2018-04-12] MEDS: Fenofibrate 145 MG Tablet PO SCH (21:45)
[2018-04-13] MEDS ORDERED: Sodium Chlor 0.9% Inj 500 ML IV.SIG SCH (05:00)
[2018-04-13] MEDS ORDERED: Metoprolol Tartrate 25 MG Tablet PO SCH (05:00)
[2018-04-13] MEDS ORDERED: Chlorhexidine Gluconate 2% 1 Pack (2 Cloths) TOPICAL SCH (05:00)
[2018-04-13] MEDS: Sod Chloride 0.9% Inj 1,000 ML IV.CONT SCH ×2 (06:22→17:23)
[2018-04-13] MEDS ORDERED: Dexmedetomidine Inj 200 MCG/2 ML Vial ONE (07:49)
[2018-04-13] MEDS ORDERED: ceFAZolin 2 GM Premix Inj 2 GM/50 ML PIGGYBACK IV.SIG ONE (09:24)
[2018-04-13] MEDS ORDERED: Tranexamic Acid Inj 1,000 MG/10 ML Ampul ONE (09:41)
--- NOTE | 2018-04-13 11:22 | MB ---
cc: Enrique Del Cid MD DATE: 04/12/2018 REASON FOR CONSULTATION: Left knee pain and swelling. HISTORY OF PRESENT ILLNESS: The patient is a 67-year-old female who resides in a [facility], brought to [facility] with acute onset of left knee pain and swelling. She has a history of prior left total knee arthroplasty done in 08/2017. She had history of a fall approximately 3 weeks ago where she did have pain and swelling of her knee at that time. She was evaluated by the undersigned [facility] as related to that fall and contusion. X-rays were unremarkable. No signs of fracture. She had mild swelling at that time, but her symptoms appear to be resolving. She has subsequently developed increasing pain and swelling over the last several days within her knee. She states she was given an antibiotic for some form of skin infection she had in her arms, at least in the last several weeks, but is somewhat of a poor historian. In regard to her knee, her pain is significant and progressive. She has difficulty bending her knee, standing and bearing weight. She has had increased temperatures. I was contacted from the emergency room physician and recommended aspiration with a cell count, culture, sensitivity. An aspiration was done in the emergency room with a white blood cell count of 9500. Cultures are now growing Staphylococcus aureus. The patient has been placed on IV antibiotic therapy and this has given slight relief of her symptoms. PAST MEDICAL HISTORY: Positive for anxiety, COPD, chronic kidney disease, depression, hypertension, hyperlipidemia, osteoarthritis, Parkinson disease, obesity. PAST SURGICAL HISTORY: Left knee replacement as above. FAMILY HISTORY: Reviewed and noncontributory. SOCIAL HISTORY: She is a former smoker, does not currently smoke or drink. No substance abuse. MEDICATIONS: Medications were reviewed per the MAR, but she is currently on carbidopa/levodopa, albuterol, vancomycin, trazodone, Trileptal, Claritin, Mucinex, ipratropium, Neurontin, fluticasone, Klonopin, Sinemet, Abilify. ALLERGIES: INCLUDE APPLE, CARISOPRODOL, CHLORPROMAZINE, EGG, GADOBENIC ACID, GADOLINIUM, HALDOL, IODINE, MORPHINE, PHENOBARBITAL, POTASSIUM, WALNUT, LITHIUM, CODEINE, ASPIRIN PENICILLIN, ALCOHOL. PHYSICAL EXAMINATION: VITAL SIGNS: Temperature 99 99.3, pulse 88, respirations 20, blood pressure 136/67. GENERAL: The patient is awake, alert, lying in bed, anxious. She is obese. HEENT: Normocephalic, atraumatic. Pupils round. Extraocular muscles are intact. NECK: Supple. LUNGS: Clear. HEART: Regular rate and rhythm. ABDOMEN: Obese, soft, nontender. EXTREMITIES: Left lower extremity has a well-healed surgical site over the anterior aspect. There is no drainage. There is no redness. Her knee is warm. She has swelling of the knee joint. She has pain with passive motion of the knee joint. She can flex and extend her ankle and toes distally. NEUROLOGIC: Nonfocal. No motor or sensory deficits. PSYCHIATRIC: She is anxious, but otherwise normal affect and cooperative. SKIN: Dry. No rash, no ecchymosis. LABORATORY DATA: White blood cell count from 04/12/2018 shows a 7.4, hemoglobin 10, hematocrit 29, platelet 161. BUN is 30, creatinine 2.49, glucose 106, sodium 151, potassium 4.2. Cultures are growing out Staphylococcus aureus from 04/11/2018 which does now have sensitivities back, and this is consistent with oxacillin-sensitive Staphylococcus aureus. X-ray of the left knee, AP and lateral views, shows intact total knee arthroplasty with a knee joint effusion. IMPRESSION: A 67-year-old female status post left total knee arthroplasty 08/2017. She has a history of Parkinson disease, chronic obstructive pulmonary disease, chronic kidney disease, morbid obesity. She has an infected septic left total knee arthroplasty with oxacillin-sensitive Staphylococcus aureus. Symptoms persist in spite of IV antibiotic therapy. PLAN: I discussed the diagnosis with the patient in great detail. We spoke about the options of continued nonoperative treatment with IV antibiotic therapy. We spoke about the option of surgery. Surgery would consist of either an irrigation and debridement, polyethylene exchange versus removal of prosthesis and implantation of antibiotic spacer. Risks, benefits, and indications were discussed in detail. I discussed with the patient I think her best chance to cure the infection would be to remove the prosthesis and place an antibiotic spacer. This will be followed by prolonged IV antibiotic therapy. If the infection is felt to be eradicated, she may possibly be a candidate for a 2-stage exchange revision arthroplasty at that time. Infection is unpredictable, as I have explained to the patient in great detail and can certainly recur. At this point, the patient is asked many appropriate questions, which have been answered and she is in favor of proceeding with surgery to include irrigation and debridement, removal of the left total knee arthroplasty prosthesis, placement of antibiotic spacer. Written consent has been obtained and the surgical site has been marked. MD HERMELINDO France/ce , 09:28 AM , 09:42 AM
[2018-04-13] MEDS ORDERED: Lidocaine PF 1% Inj 5 ML Syringe INFILTRATN ONE (12:00)
[2018-04-13] MEDS ORDERED: Sodium Chlor 0.9% Inj 500 ML IV.SIG ONE (12:00)
[2018-04-13] MEDS ORDERED: Neostigmine Inj 5 MG/5 ML Syringe IV.PUSH ONE (12:00)
[2018-04-13] MEDS ORDERED: Glycopyrrolate Inj 1 MG/5 ML Syringe IV.PUSH ONE (12:00)
[2018-04-13] MEDS ORDERED: Phenylephrine/NS 1000 MCG/10ML Syringe IV.PUSH ONE (12:00)
[2018-04-13] MEDS ORDERED: fentaNYL Citrate Inj 100 MCG/2 ML Ampul ONE (12:08)
[2018-04-13] MEDS ORDERED: *Meperidine Inj 25 MG/ML Vial PERIprocedural Use ONLY ONE (12:28)
--- NOTE | 2018-04-13 12:51 | XR ---
EXAM DATE: 04/13/2018 12:47 PM EDT AGE/SEX: 67 years / Female INDICATIONS: Post-operative knee replacement. CLINICAL DATA: This is the patient's initial encounter. Patient reports that signs and symptoms have been present for 1 day and indicates a pain score of Nonresponsive. MEDICAL/SURGICAL HISTORY: None. None. COMPARISON: [facility], KNEE COMPLETE LEFT 4V, 04/11/2018. . FINDINGS: 2 views of left knee. Postsurgical findings are seen with anterior cutaneous layla and gas in the s oft tissues. There is been removal of the previously seen knee prosthesis. New prosthesis or spacer i s now in place. No evidence of fracture. CONCLUSION: Postoperative findings indicating revision of previously seen total knee prosthesis. Electronically signed by: Mac Chase MD 04/13/2018 12:49 PM EDT
--- NOTE | 2018-04-13 13:03 | MP ---
cc: Enrique Del Cid MD DATE OF OPERATION: 04/13/2018 PREOPERATIVE DIAGNOSIS: Infected left total knee arthroplasty. POSTOPERATIVE DIAGNOSIS: Infected left total knee arthroplasty. PROCEDURE PERFORMED: Irrigation and debridement of left infected total knee arthroplasty with removal of prosthesis and placement of antibiotic spacer. SURGEON: Enrique Del Cid MD DOWEL SETTING MACHINE OPERATOR: KO May. ANESTHESIA: General. ESTIMATED BLOOD LOSS: 200 mL. COMPLICATIONS: None. IMPLANTS USED: Exactech. JUSTIFICATION: The patient is a 67-year-old female who underwent previous left total knee arthroplasty 08/2017. She was doing well, but had a fall several weeks ago, which she developed contusion, pain, swelling of the left knee. Those symptoms have progressed and she also started to develop fevers and chills. Aspiration of her knee joint has revealed Staphylococcus aureus, oxacillin sensitive. The patient was counseled as to the risks, benefits and alternatives to the above-named proposed surgical procedures. She did wish to proceed with surgery. PROCEDURE IN DETAIL: Written consent was obtained. The patient was identified by name, taken to the operating room, and placed supine on the operating room table. General anesthesia was administered, as well as 2 grams of IV Ancef and 1 gram of IV vancomycin. A well-padded tourniquet was placed on the left lower extremity, prepped and draped using isopropyl alcohol, Hibiclens solution, and ChloraPrep solution. After a timeout was performed, the extremity was elevated for 90 seconds and the tourniquet inflated to 250 mmHg. A lateral incision was made over the anterior aspect of the left knee. A medial parapatellar arthrotomy was performed. A copious amount of purulent fluid was noted to come from the knee joint and cultures were sent. At this point, a thorough meticulous debridement was performed with a 10 blade scalpel to include a complete synovectomy. At this point, a flexible osteotome was used to remove the femoral and tibial components. A curette was used to remove cement from both the femoral and tibial canals. After extensive debridement, the knee was then thoroughly irrigated with 9 liters of sterile saline, pulse lavage, antibiotic impregnated solution. At this point, a size medium Exactech antibiotic spacer was placed in the knee, which was also cemented in place with the Exactech cement. That cement has preplaced gentamicin and we added 2 grams of IV vancomycin to the cement. The antibiotic spacer was then placed and allowed to harden. Extravasated cement was removed. The arthrotomy incision was closed with #1 Vicryl suture, subcutaneous layer with 2-0 Vicryl, skin was closed with layla. Sterile dressing applied. The patient tolerated the procedure well. No intraoperative complications noted. Ata Richmond, physician assistant chief nursing officer, certified was present during the entire procedure to include patient positioning and the procedure itself. The medical necessity of a physician assistant chief nursing officer was indicated in this case due to the complexity of the procedure. He assisted with appropriate manipulation of the leg and retraction of muscle, tendon, bone, and neurovascular structures. He assisted with preparation of bone and also implantation of the spacer. Enrique Del Cid MD JWM/sv , 11:35 AM , 11:42 AM
[2018-04-13] MEDS: OXcarbazepine 600 MG Tablet PO SCH ×2 (13:26→23:07)
[2018-04-13] MEDS: Gabapentin 400 MG Capsule PO SCH ×2 (13:26→23:06)
[2018-04-13] MEDS: clonazePAM 0.5 MG Tablet PO SCH ×2 (13:26→23:07)
--- NOTE | 2018-04-13 14:12 | P.PN ---
Subjective Interval history: Follow-up left septic joint April 12 2018-patient seen and examined, complains of left knee pain, afebrile. Currently n.p.o. April 13 2018-patient seen and examined, she was taken to the OR this morning for removal of left prosthesis Physical Exam Vital signs: Vital Signs 04/12/18 16:00 04/12/18 20:00 04/12/18 20:30 Temperature 98.1 F 97.5 F L Pulse Rate 89 96 H 99 H Respiratory Rate 17 18 Blood Pressure 164/75 H 124/64 Pulse Oximetry 96 94 L 04/12/18 21:56 04/12/18 23:00 04/13/18 00:00 Temperature 97.6 F Pulse Rate 78 94 H 96 H Respiratory Rate 16 20 Blood Pressure 132/64 Pulse Oximetry 98 96 04/13/18 04:00 04/13/18 09:50 04/13/18 11:58 Temperature 99.3 F 97.4 F L Pulse Rate 89 103 H Respiratory Rate 20 22 Blood Pressure 136/67 172/74 H Pulse Oximetry 97 98 90 L 04/13/18 12:15 04/13/18 12:30 04/13/18 12:51 Temperature Pulse Rate 99 H 98 H 98 H Respiratory Rate 20 20 20 Blood Pressure 171/77 H 160/72 H 161/72 H Pulse Oximetry 96 96 96 04/13/18 12:58 Temperature Pulse Rate 100 H Respiratory Rate 20 Blood Pressure 157/56 H Pulse Oximetry 96 Intake & Output 04/12/18 04/13/18 04/13/18 18:59 06:59 18:59 Intake Total 1615 / 1615 1100 / 1100 1500 / 1500 Output Total 900 / 900 1800 / 1800 450 / 450 Balance 715 / 715 -700 / -700 1050 / 1050 Weight 108.5 kg Intake: IV 1615 / 1615 1100 / 1100 NS Inj 1,000 ML @ 100 mls/hr IV 1000 / 1000 1000 / 1000 .CONT .Q10H [facility] Rx#:[id number] Vancomycin Inj 1,500 MG In NS 515 / 515 Inj 500 ML @ 250 mls/hr IV.SIG ONCE ONE Rx#:[id number] Rocephin Inj 1,000 MG In NS Inj 100 / 100 100 / 100 100 ML @ 200 mls/hr IV.SIG Q12H [facility] Rx#:[id number] Oral 0 / 0 Anesthesia Amount 1500 / 1500 Output: Urine 900 / 900 400 / 400 Estimated Blood Loss 50 / 50 Urine Amount (Catheter) 1800 / 1800 Female External 1800 / 1800 Other: # Voids 1 # Urine Diapers 1 Date of Last Bowel Movement 04/11/18 04/11/18 04/11/18 # Bowel Movements 0 Narrative: GENERAL: NAD SKIN: Warm and dry. HEAD: Normocephalic. EYES: No scleral icterus. No injection or drainage. NECK: Supple, trachea midline. No JVD or lymphadenopathy. CARDIOVASCULAR: Regular rate and rhythm without murmurs, gallops, or rubs. RESPIRATORY: Breath sounds equal bilaterally. No accessory muscle use. GASTROINTESTINAL: Abdomen soft, non-tender, nondistended. MUSCULOSKELETAL: No cyanosis, or edema. brace over left knee BACK: Nontender without obvious deformity. No CVA tenderness. - Urinary Catheter Management Female External Cath placed during this visit: no Results - Labs CBC & Chem 7: 04/12/18 08:15 04/12/18 08:15 Laboratory Results - last 24 hr 04/12/18 04/12/18 16:40 16:40 ESR 90 H C-Reactive Protein 28.00 H Microbiology 04/11/18 10:00 Blood - Peripheral Aerobic Blood Culture - Preliminary No growth in 2 days 04/11/18 10:00 Blood - Peripheral Anaerobic Blood Culture - Preliminary No growth in 2 days 04/11/18 10:00 Blood - Peripheral Aerobic Blood Culture - Preliminary No growth in 2 days 04/11/18 10:00 Blood - Peripheral Anaerobic Blood Culture - Preliminary No growth in 2 days 04/11/18 14:05 Fluid - Synovial Fluid Gram Stain - Final 04/11/18 14:05 Fluid - Synovial Fluid Body Fluid Culture - Final Staphylococcus aureus 04/11/18 10:00 Clean Catch Urine Urine Culture - Final 50-100,000 cfu/mL mixed thierno (probable contaminants ) - Imaging Impressions Knee X-Ray 04/13/18 12:21 CONCLUSION: Postoperative findings indicating revision of previously seen total knee prosthesis. Assessment and Plan - Plan 67-year-old female with Left septic knee joint Status post removal of left knee prosthesis April 13 2018 status post knee joint aspiration in ED On vancomycin and Rocephin Appreciate input from ID Synovial joint culture positive for staph aureus Chronic kidney disease Avoid nephrotoxins. Continue to monitor creatinine. Hyperglycemia hemoglobin A1c pending. Asymptomatic bacteriuria on Rocephin pending urine cultures. Hypertension Lopressor 50 mg twice daily Parkinson/COPD/depression/anxiety/dyslipidemia Continue with home medication. DVT prophylaxis -SCDs.
--- NOTE | 2018-04-13 15:49 | P.PNID ---
Subjective Remarks: ID Xcover for . is a 67-year-old female, [facility], brought into the hospital for evaluation of acute left knee pain. Patient has had prior bilateral knee replacement, and the night prior to admission she stated that she was limping. When she woke up the following day, she had noted swelling on her left knee, and severe pain that she could not walk. Normally she walks using a walker. She has not had any fever chills or sweats. Patient stated that she fell about 2 weeks ago, but did not sustain any kind of injury. She apparently also was given an antibiotic for some skin infection that she had in her arms in the least several weeks. Patient after she had her surgery on the left knee back in August 2017 had an uncomplicated course. Since admission she has had low-grade temps. Her WBC is normal. Arthrocentesis of the left knee was done and it showed leukocytosis, and it is now growing staph aureus. Infectious disease consultation has been requested to evaluate the patient. Patient was evaluated by Ortho and taken to OR this am. Underwent removal of prosthesis and placement of spacer. Intraop cultures with MSSA. Medical History: Medical History Anxiety COPD (chronic obstructive pulmonary disease) Chronic kidney disease (CKD) Depression HTN (hypertension) Hyperlipidemia Osteoarthritis Parkinson disease Surgical History: Surgical History History of knee replacement Overnight events reviewed Post op No fevers No rash No diarrhea Reports 3 days history of erythema and knee swelling. Antibiotics: Ceftriaxone IV Vanco IV Lines: lines ok Past Medical History: reviewed Allergies/Adverse Reactions: Allergies apple Allergy (Severe, Verified 04/11/18 09:49) Nausea/Vomiting carisoprodol Allergy (Severe, Verified 04/11/18 09:49) TREMORS chlorpromazine Allergy (Severe, Verified 04/11/18 09:49) unknown diatrizoate meglumine Allergy (Severe, Verified 04/11/18 09:49) CARDIAC ARREST egg Allergy (Severe, Verified 04/11/18 09:49) Nausea/Vomiting gadobenic acid Allergy (Severe, Verified 04/11/18 09:49) CARDIAC ARREST gadodiamide Allergy (Severe, Verified 04/11/18 09:49) CARDIAC ARREST gadoteridol Allergy (Severe, Verified 04/11/18 09:49) CARDIAC ARREST haloperidol Allergy (Severe, Verified 04/11/18 09:49) Hallucinations iodine Allergy (Severe, Verified 04/11/18 09:49) CARDIAC ARREST iodixanol Allergy (Severe, Verified 04/11/18 09:49) CARDIAC ARREST iohexol Allergy (Severe, Verified 04/11/18 09:49) CARDIAC ARREST morphine Allergy (Severe, Verified 04/11/18 09:49) CARDIAC ARREST phenobarbital Allergy (Severe, Verified 04/11/18 09:49) HYPOKALEMIA potassium iodide Allergy (Severe, Verified 04/11/18 09:49) CARDIAC ARREST povidone-iodine Allergy (Severe, Verified 04/11/18 09:49) CARDIAC ARREST shrimp Allergy (Severe, Verified 04/11/18 09:49) Nausea/Vomiting sodium iodide Allergy (Severe, Verified 04/11/18 09:49) CARDIAC ARREST sodium iodide Allergy (Severe, Verified 04/11/18 09:49) CARDIAC ARREST thioridazine Allergy (Severe, Verified 04/11/18 09:49) CARDIAC ARREST walnut Allergy (Severe, Verified 04/11/18 09:49) Nausea/Vomiting lithium Allergy (Intermediate, Verified 04/11/18 09:49) EDEMA/DIARRHEA codeine Allergy (Unknown, Verified 04/11/18 09:49) Hallucinations aspirin Adverse Reaction (Severe, Verified 04/11/18 09:49) Nausea/Vomiting Penicillins Adverse Reaction (Mild, Verified 04/11/18 09:49) Nausea/Vomiting NAUSEA alcohol Adverse Reaction (Verified 04/11/18 09:49) Nausea/Vomiting Objective Vital Signs 04/12/18 16:00 04/12/18 20:00 04/12/18 20:30 Temperature 98.1 F 97.5 F L Pulse Rate 89 96 H 99 H Respiratory Rate 17 18 Blood Pressure 164/75 H 124/64 Pulse Oximetry 96 94 L 04/12/18 21:56 04/12/18 23:00 04/13/18 00:00 Temperature 97.6 F Pulse Rate 78 94 H 96 H Respiratory Rate 16 20 Blood Pressure 132/64 Pulse Oximetry 98 96 04/13/18 04:00 04/13/18 08:07 04/13/18 09:50 Temperature 99.3 F Pulse Rate 89 92 H Respiratory Rate 20 Blood Pressure 136/67 Pulse Oximetry 97 98 04/13/18 11:58 04/13/18 12:15 04/13/18 12:30 Temperature 97.4 F L Pulse Rate 103 H 99 H 98 H Respiratory Rate 22 20 20 Blood Pressure 172/74 H 171/77 H 160/72 H Pulse Oximetry 90 L 96 96 04/13/18 12:51 04/13/18 12:58 Temperature Pulse Rate 98 H 100 H Respiratory Rate 20 20 Blood Pressure 161/72 H 157/56 H Pulse Oximetry 96 96 Intake & Output 04/12/18 04/13/18 04/13/18 18:59 06:59 18:59 Intake Total 1615 / 1615 1100 / 1100 1500 / 1500 Output Total 900 / 900 1800 / 1800 450 / 450 Balance 715 / 715 -700 / -700 1050 / 1050 Weight 108.5 kg Intake: IV 1615 / 1615 1100 / 1100 NS Inj 1,000 ML @ 100 mls/hr IV 1000 / 1000 1000 / 1000 .CONT .Q10H [facility] Rx#:[id number] Vancomycin Inj 1,500 MG In NS 515 / 515 Inj 500 ML @ 250 mls/hr IV.SIG ONCE ONE Rx#:[id number] Rocephin Inj 1,000 MG In NS Inj 100 / 100 100 / 100 100 ML @ 200 mls/hr IV.SIG Q12H [facility] Rx#:[id number] Oral 0 / 0 Anesthesia Amount 1500 / 1500 Output: Urine 900 / 900 400 / 400 Estimated Blood Loss 50 / 50 Urine Amount (Catheter) 1800 / 1800 Female External 1800 / 1800 Other: # Voids 1 # Urine Diapers 1 Date of Last Bowel Movement 04/11/18 04/11/18 04/11/18 # Bowel Movements 0 04/11/18 10:00 Blood - Peripheral Aerobic Blood Culture - Preliminary No growth in 2 days 04/11/18 10:00 Blood - Peripheral Anaerobic Blood Culture - Preliminary No growth in 2 days 04/11/18 10:00 Blood - Peripheral Aerobic Blood Culture - Preliminary No growth in 2 days 04/11/18 10:00 Blood - Peripheral Anaerobic Blood Culture - Preliminary No growth in 2 days 04/11/18 14:05 Fluid - Synovial Fluid Gram Stain - Final 04/11/18 14:05 Fluid - Synovial Fluid Body Fluid Culture - Final Staphylococcus aureus 04/11/18 10:00 Clean Catch Urine Urine Culture - Final 50-100,000 cfu/mL mixed thierno (probable contaminants ) Lab - Hematology Results 04/12/18 04/12/18 08:15 16:40 WBC 7.4 RBC 3.13 L Hgb 10.1 L Hct 29.8 L MCV 95.2 MCH 32.1 MCHC 33.7 RDW 16.4 Plt Count 161 MPV 7.7 Neut % (Auto) 75.2 H Lymph % (Auto) 14.8 Perry % (Auto) 9.7 H Eos % (Auto) 0.1 Baso % (Auto) 0.2 Neut # (Auto) 5.6 Lymph # (Auto) 1.1 Perry # (Auto) 0.7 Eos # (Auto) 0.0 Baso # (Auto) 0.0 WBC Differential . Differential Comment Auto diff final ESR 90 H Lab - Chemistry Results 04/12/18 04/12/18 08:15 16:40 Sodium 151 H Potassium 4.2 Chloride 120 H D Carbon Dioxide 23.0 Anion Gap 8 BUN 30 H Creatinine 2.49 H Estimated GFR 19 L Random Glucose 106 Calcium 8.4 L C-Reactive Protein 28.00 H Imaging: ITS Impressions Chest X-Ray 04/11/18 09:40 CONCLUSION: Negative examination. Knee X-Ray 04/13/18 12:21 CONCLUSION: Postoperative findings indicating revision of previously seen total knee prosthesis. Physical Exam: GENERAL: Well-nourished well-developed, not in acute distress SKIN: Cool and dry, no generalized rash HEAD: Atraumatic. Normocephalic. No temporal or scalp tenderness. EYES: Pupils equal round and reactive. Scleral icterus. No injection or drainage. No petechia ENT: Nothing abnormal detected NECK: Trachea midline. Supple, nontender, no meningeal signs. CARDIOVASCULAR: HS audible. RESPIRATORY: Clear to auscultation bilaterally. GASTROINTESTINAL: Abdomen soft nontender. MUSCULOSKELETAL: Left lower extremity especially of the knee joint patient in a brace postoperatively able to move her ankles with good pulsations at the ankle level. NEUROLOGICAL: Alert oriented 3. Nonfocal. Psych cooperative IV line sites ok. Assessment and Plan - Plan Impression Septic L knee, S/P LTKA, C/S MSSA. Prosthetic knee joint infection Hx Parkinson's COPD Chronic kidney disease Morbid obesity BMI 38.6 kg/m Recommendation Start Ancef IV 2 g IV every 8 hours more directed therapy for MSSA infection. Discontinue ceftriaxone IV Discontinue vancomycin IV Follow cultures Follow clinically We will follow as needed over the weekend. Dr. Abdullahi to resume care on April 15, 2018. If any changes in the interim please call sooner.
[2018-04-13] MEDS: ceFAZolin Inj 2,000 MG in Sodium Chlor 0.9% Inj 80 ML IV.SIG SCH (17:23)
[2018-04-13] MEDS: Fenofibrate 145 MG Tablet PO SCH (23:05)
[2018-04-13] MEDS: Metoprolol Tartrate 50 MG Tablet PO SCH (23:07)
[2018-04-14] MEDS: traZODone 100 MG Tablet PO SCH ×2 (02:05→21:34)
[2018-04-14] MEDS: guaiFENesin 600 MG ER Tablet PO SCH ×3 (02:05→23:26)
[2018-04-14] MEDS: ceFAZolin Inj 2,000 MG in Sodium Chlor 0.9% Inj 80 ML IV.SIG SCH ×3 (02:06→17:26)
[2018-04-14] MEDS: Sod Chloride 0.9% Inj 1,000 ML IV.CONT SCH ×3 (02:10→13:20)
--- NOTE | 2018-04-14 06:28 | P.PNOP ---
Subjective Interval history: pain controlled baseline confusion nad Physical Exam Vital signs: Vital Signs 04/13/18 08:07 04/13/18 09:50 04/13/18 11:58 Temperature 97.4 F L Pulse Rate 92 H 103 H Respiratory Rate 22 Blood Pressure 172/74 H Pulse Oximetry 98 90 L 04/13/18 12:15 04/13/18 12:30 04/13/18 12:51 Temperature Pulse Rate 99 H 98 H 98 H Respiratory Rate 20 20 20 Blood Pressure 171/77 H 160/72 H 161/72 H Pulse Oximetry 96 96 96 04/13/18 12:58 04/13/18 16:00 04/13/18 20:00 Temperature 97.2 F L 97.4 F L Pulse Rate 100 H 100 H 85 Respiratory Rate 20 20 18 Blood Pressure 157/56 H 143/62 H 156/70 H Pulse Oximetry 96 97 100 04/13/18 20:59 04/14/18 00:00 04/14/18 04:00 Temperature 97.4 F L 98 F Pulse Rate 85 84 77 Respiratory Rate 20 15 18 Blood Pressure 135/60 127/57 L Pulse Oximetry 95 100 Intake & Output 04/13/18 04/13/18 04/14/18 06:59 18:59 06:59 Intake Total 1100 / 1100 2650 / 2650 340 / 340 Output Total 1800 / 1800 450 / 450 650 / 650 Balance -700 / -700 2200 / 2200 -310 / -310 Weight 108.5 kg 111.9 kg Intake: IV 1100 / 1100 1150 / 1150 100 / 100 NS Inj 1,000 ML @ 100 mls/hr IV 1000 / 1000 1000 / 1000 .CONT .Q10H TOO Rx#:[id number] Ancef 2 GM Premix Inj 2 gm In 50 / 50 50 ml @ 0 mls/hr IV.SIG .STK- MED ONE Rx#:[id number] Ancef Inj 2,000 MG In NS Inj 80 100 / 100 100 / 100 ML @ 200 mls/hr IV.SIG Q8H TOO Rx#:[id number] Rocephin Inj 1,000 MG In NS Inj 100 / 100 100 ML @ 200 mls/hr IV.SIG Q12H TOO Rx#:[id number] Oral 240 / 240 Anesthesia Amount 1500 / 1500 Output: Urine 400 / 400 650 / 650 Estimated Blood Loss 50 / 50 Urine Amount (Catheter) 1800 / 1800 Female External 1800 / 1800 Other: # Voids 1 # Incontinent Voids 2 # Urine Diapers 1 Date of Last Bowel Movement 04/11/18 04/11/18 04/11/18 - Routine Extremities Exam Comments: left leg dressing intact, dry nvi distaly no calf swelling - Urinary Catheter Management Female External Cath placed during this visit: no Results - Labs CBC & Chem 7: 04/12/18 08:15 04/12/18 08:15 Microbiology 04/11/18 10:00 Blood - Peripheral Aerobic Blood Culture - Preliminary No growth in 2 days 04/11/18 10:00 Blood - Peripheral Anaerobic Blood Culture - Preliminary No growth in 2 days 04/11/18 10:00 Blood - Peripheral Aerobic Blood Culture - Preliminary No growth in 2 days 04/11/18 10:00 Blood - Peripheral Anaerobic Blood Culture - Preliminary No growth in 2 days 04/11/18 14:05 Fluid - Synovial Fluid Gram Stain - Final 04/11/18 14:05 Fluid - Synovial Fluid Body Fluid Culture - Final Staphylococcus aureus - Imaging Impressions Knee X-Ray 04/13/18 12:21 CONCLUSION: Postoperative findings indicating revision of previously seen total knee prosthesis. Assessment and Plan - Ortho Post Op Day # 1 - Assessment and Plan pod 1 s/p I and D with removal of infected TKA placement of antibiotic spacer cultures JAMIA plan continue ancef per infectous disease nwb LLE lovenox scd's will need pic line and inseam trimmer iv abx will need snf for discharge
[2018-04-14] MEDS: Gabapentin 400 MG Capsule PO SCH ×2 (08:25→21:33)
[2018-04-14] MEDS: clonazePAM 0.5 MG Tablet PO SCH ×2 (08:25→21:34)
[2018-04-14] MEDS: OXcarbazepine 600 MG Tablet PO SCH ×2 (08:26→21:33)
[2018-04-14] MEDS: Metoprolol Tartrate 50 MG Tablet PO SCH ×2 (08:27→21:34)
--- NOTE | 2018-04-14 09:44 | P.PN ---
Subjective Interval history: Follow-up left septic joint April 12 2018-patient seen and examined, complains of left knee pain, afebrile. Currently n.p.o. April 13 2018-patient seen and examined, she was taken to the OR this morning for removal of left prosthesis April 14, 2018-patient seen and examined, afebrile, reports some throbbing left knee joint. Alert and oriented 2 Physical Exam Vital signs: Vital Signs 04/13/18 09:50 04/13/18 11:58 04/13/18 12:15 Temperature 97.4 F L Pulse Rate 103 H 99 H Respiratory Rate 22 20 Blood Pressure 172/74 H 171/77 H Pulse Oximetry 98 90 L 96 04/13/18 12:30 04/13/18 12:51 04/13/18 12:58 Temperature Pulse Rate 98 H 98 H 100 H Respiratory Rate 20 20 20 Blood Pressure 160/72 H 161/72 H 157/56 H Pulse Oximetry 96 96 96 04/13/18 16:00 04/13/18 20:00 04/13/18 20:59 Temperature 97.2 F L 97.4 F L Pulse Rate 100 H 93 H 85 Respiratory Rate 20 18 20 Blood Pressure 143/62 H 156/70 H Pulse Oximetry 97 100 04/14/18 00:00 04/14/18 04:00 04/14/18 08:00 Temperature 97.4 F L 98 F 98.1 F Pulse Rate 85 82 87 Respiratory Rate 15 18 16 Blood Pressure 135/60 127/57 L 133/69 Pulse Oximetry 95 100 100 Intake & Output 04/13/18 04/14/18 04/14/18 18:59 06:59 18:59 Intake Total 2650 / 2650 340 / 340 Output Total 450 / 450 650 / 650 Balance 2200 / 2200 -310 / -310 Weight 111.9 kg Intake: IV 1150 / 1150 100 / 100 NS Inj 1,000 ML @ 100 mls/hr IV 1000 / 1000 .CONT .Q10H TOO Rx#:[id number] Ancef 2 GM Premix Inj 2 gm In 50 / 50 50 ml @ 0 mls/hr IV.SIG .STK- MED ONE Rx#:[id number] Ancef Inj 2,000 MG In NS Inj 80 100 / 100 100 / 100 ML @ 200 mls/hr IV.SIG Q8H TOO Rx#:[id number] Oral 240 / 240 Anesthesia Amount 1500 / 1500 Output: Urine 400 / 400 650 / 650 Estimated Blood Loss 50 / 50 Other: # Voids 1 # Incontinent Voids 2 Date of Last Bowel Movement 04/11/18 04/11/18 Narrative: GENERAL: NAD SKIN: Warm and dry. HEAD: Normocephalic. EYES: No scleral icterus. No injection or drainage. NECK: Supple, trachea midline. No JVD or lymphadenopathy. CARDIOVASCULAR: Regular rate and rhythm without murmurs, gallops, or rubs. RESPIRATORY: Breath sounds equal bilaterally. No accessory muscle use. GASTROINTESTINAL: Abdomen soft, non-tender, nondistended. MUSCULOSKELETAL: No cyanosis, or edema. brace over left knee BACK: Nontender without obvious deformity. No CVA tenderness. - Urinary Catheter Management Female External Cath placed during this visit: no Results - Labs CBC & Chem 7: 04/12/18 08:15 04/12/18 08:15 Microbiology 04/13/18 10:10 Wound - Knee Fungal Smear - Final No fungal elements seen 04/13/18 10:10 Wound - Knee Gram Stain - Final 04/11/18 10:00 Blood - Peripheral Aerobic Blood Culture - Preliminary No growth in 2 days 04/11/18 10:00 Blood - Peripheral Anaerobic Blood Culture - Preliminary No growth in 2 days 04/11/18 10:00 Blood - Peripheral Aerobic Blood Culture - Preliminary No growth in 2 days 04/11/18 10:00 Blood - Peripheral Anaerobic Blood Culture - Preliminary No growth in 2 days 04/11/18 14:05 Fluid - Synovial Fluid Gram Stain - Final 04/11/18 14:05 Fluid - Synovial Fluid Body Fluid Culture - Final Staphylococcus aureus - Imaging Impressions Knee X-Ray 04/13/18 12:21 CONCLUSION: Postoperative findings indicating revision of previously seen total knee prosthesis. Assessment and Plan - Plan 67-year-old female with Left septic knee joint Status post removal of left knee prosthesis April 13 2018 status post knee joint aspiration in ED Currently on Ancef IV per ID, s/p vancomycin and Rocephin Appreciate input from ID Synovial joint culture positive for staph aureus PT to treat and eval Chronic kidney disease Avoid nephrotoxins. Continue to monitor creatinine. Hyperglycemia hemoglobin A1c pending. Asymptomatic bacteriuria Urine culture negative Hypertension Lopressor 50 mg twice daily Parkinson/COPD/depression/anxiety/dyslipidemia Continue with home medication. DVT prophylaxis -SCDs.
[2018-04-14] MEDS: Fenofibrate 145 MG Tablet PO SCH (21:34)
[2018-04-15] MEDS: ceFAZolin Inj 2,000 MG in Sodium Chlor 0.9% Inj 80 ML IV.SIG SCH ×3 (00:37→17:31)
[2018-04-15] MEDS: Sod Chloride 0.9% Inj 1,000 ML IV.CONT SCH ×3 (06:04→17:53)
[2018-04-15] MEDS: Gabapentin 400 MG Capsule PO SCH ×2 (09:32→20:21)
[2018-04-15] MEDS: OXcarbazepine 600 MG Tablet PO SCH ×2 (09:32→20:21)
[2018-04-15] MEDS: Metoprolol Tartrate 50 MG Tablet PO SCH ×2 (09:32→20:20)
[2018-04-15] MEDS: clonazePAM 0.5 MG Tablet PO SCH ×2 (09:33→20:20)
--- NOTE | 2018-04-15 10:17 | P.PNID ---
Subjective Remarks: is a 67-year-old female, resides in the senior living, brought into the hospital for evaluation of acute left knee pain. Patient has had prior bilateral knee replacement, and the night prior to admission she stated that she was limping. When she woke up the following day, she had noted swelling on her left knee, and severe pain that she could not walk. Normally she walks using a walker. She has not had any fever chills or sweats. Patient stated that she fell about 2 weeks ago, but did not sustain any kind of injury. She apparently also was given an antibiotic for some skin infection that she had in her arms in the least several weeks. Patient after she had her surgery on the left knee back in August 2017 had an uncomplicated course. Since admission she has had low-grade temps. Her WBC is normal. Arthrocentesis of the left knee was done and it showed leukocytosis, and it is now growing staph aureus. Infectious disease consultation has been requested to evaluate the patient. Notes reviewed Patient was evaluated by Ortho and taken to OR 04/13 Underwent removal of prosthesis and placement of spacer. Intraop cultures with MSSA. Temps ok Pain under control Patient states that she wants to go to [facility] and wishes to speak with CM No rash No diarrhea Antibiotics: Ancef Lines: lines ok Past Medical History: Anxiety COPD (chronic obstructive pulmonary disease) Chronic kidney disease (CKD) Depression HTN (hypertension) Hyperlipidemia Osteoarthritis Parkinson disease History of knee replacement Allergies/Adverse Reactions: Allergies apple Allergy (Severe, Verified 04/11/18 09:49) Nausea/Vomiting carisoprodol Allergy (Severe, Verified 04/11/18 09:49) TREMORS chlorpromazine Allergy (Severe, Verified 04/11/18 09:49) unknown diatrizoate meglumine Allergy (Severe, Verified 04/11/18 09:49) CARDIAC ARREST egg Allergy (Severe, Verified 04/11/18 09:49) Nausea/Vomiting gadobenic acid Allergy (Severe, Verified 04/11/18 09:49) CARDIAC ARREST gadodiamide Allergy (Severe, Verified 04/11/18 09:49) CARDIAC ARREST gadoteridol Allergy (Severe, Verified 04/11/18 09:49) CARDIAC ARREST haloperidol Allergy (Severe, Verified 04/11/18 09:49) Hallucinations iodine Allergy (Severe, Verified 04/11/18 09:49) CARDIAC ARREST iodixanol Allergy (Severe, Verified 04/11/18 09:49) CARDIAC ARREST iohexol Allergy (Severe, Verified 04/11/18 09:49) CARDIAC ARREST morphine Allergy (Severe, Verified 04/11/18 09:49) CARDIAC ARREST phenobarbital Allergy (Severe, Verified 04/11/18 09:49) HYPOKALEMIA potassium iodide Allergy (Severe, Verified 04/11/18 09:49) CARDIAC ARREST povidone-iodine Allergy (Severe, Verified 04/11/18 09:49) CARDIAC ARREST shrimp Allergy (Severe, Verified 04/11/18 09:49) Nausea/Vomiting sodium iodide Allergy (Severe, Verified 04/11/18 09:49) CARDIAC ARREST sodium iodide Allergy (Severe, Verified 04/11/18 09:49) CARDIAC ARREST thioridazine Allergy (Severe, Verified 04/11/18 09:49) CARDIAC ARREST walnut Allergy (Severe, Verified 04/11/18 09:49) Nausea/Vomiting lithium Allergy (Intermediate, Verified 04/11/18 09:49) EDEMA/DIARRHEA codeine Allergy (Unknown, Verified 04/11/18 09:49) Hallucinations aspirin Adverse Reaction (Severe, Verified 04/11/18 09:49) Nausea/Vomiting Penicillins Adverse Reaction (Mild, Verified 04/11/18 09:49) Nausea/Vomiting NAUSEA alcohol Adverse Reaction (Verified 04/11/18 09:49) Nausea/Vomiting Objective Vital Signs 04/14/18 11:48 04/14/18 12:00 04/14/18 16:00 Temperature 97.6 F 97.5 F L Pulse Rate 84 78 87 Respiratory Rate 14 16 Blood Pressure 128/59 L 118/59 L Pulse Oximetry 98 97 04/14/18 20:00 04/14/18 20:04 04/15/18 00:00 Temperature 98 F 97.8 F Pulse Rate 87 86 84 Respiratory Rate 18 17 18 Blood Pressure 138/63 146/74 H Pulse Oximetry 96 97 95 04/15/18 04:00 04/15/18 08:00 Temperature 97.8 F 97.6 F Pulse Rate 86 80 Respiratory Rate 16 18 Blood Pressure 157/68 H 125/60 Pulse Oximetry 98 98 Intake & Output 04/14/18 04/15/18 04/15/18 18:59 06:59 18:59 Intake Total 1200 / 1200 2001 Output Total 1200 / 1200 1350 / 1350 Balance 0 / 0 652 / 652 Weight 114.7 kg Intake: IV 1200 / 1200 1762 / 1762 NS Inj 1,000 ML @ 100 mls/hr IV 1000 / 1000 1662 / 1662 .CONT .Q10H TOO Rx#:[id number] Ancef Inj 2,000 MG In NS Inj 80 200 / 200 100 / 100 ML @ 200 mls/hr IV.SIG Q8H TOO Rx#:[id number] Oral 240 / 240 Output: Urine 1350 / 1350 Urine Amount (Catheter) 1200 / 1200 Female External 1200 / 1200 Other: Date of Last Bowel Movement 04/11/18 04/11/18 04/13/18 10:10 Wound - Knee Gram Stain - Final 04/13/18 10:10 Wound - Knee Wound Culture - Final Staphylococcus aureus 04/13/18 10:10 Wound - Knee Acid Fast Bacilli Smear - Final No acid fast bacilli seen 04/13/18 10:10 Wound - Knee Mycobacterial Culture - Pending 04/11/18 10:00 Blood - Peripheral Aerobic Blood Culture - Preliminary No growth in 3 days 04/11/18 10:00 Blood - Peripheral Anaerobic Blood Culture - Preliminary No growth in 3 days 04/11/18 10:00 Blood - Peripheral Aerobic Blood Culture - Preliminary No growth in 3 days 04/11/18 10:00 Blood - Peripheral Anaerobic Blood Culture - Preliminary No growth in 3 days 04/13/18 10:10 Wound - Knee Fungal Smear - Final No fungal elements seen 04/13/18 10:10 Wound - Knee Fungal Culture - Pending 04/11/18 14:05 Fluid - Synovial Fluid Gram Stain - Final 04/11/18 14:05 Fluid - Synovial Fluid Body Fluid Culture - Final Staphylococcus aureus 04/11/18 10:00 Clean Catch Urine Urine Culture - Final 50-100,000 cfu/mL mixed thierno (probable contaminants ) Lab - Chemistry Results 04/15/18 07:59 POC Glucose 112 H Imaging: ITS Impressions Chest X-Ray 04/11/18 09:40 CONCLUSION: Negative examination. Knee X-Ray 04/13/18 12:21 CONCLUSION: Postoperative findings indicating revision of previously seen total knee prosthesis. Physical Exam: GENERAL: Well-nourished well-developed, NAD SKIN: Cool and dry, no generalized rash HEAD: Atraumatic. Normocephalic. No temporal or scalp tenderness. EYES: Pupils equal round and reactive. Scleral icterus. No injection or drainage. No petechia ENT: Moist mucosa NECK: Trachea midline. Supple, nontender, no meningeal signs. CARDIOVASCULAR: HS audible. RESPIRATORY: Clear to auscultation bilaterally. GASTROINTESTINAL: Abdomen soft nontender. MUSCULOSKELETAL: Left lower extremity especially of the knee joint patient in a brace postoperatively able to move her ankles with good pulsations at the ankle level. NEUROLOGICAL: Alert oriented 3. Nonfocal. Psych cooperative IV line sites ok. Assessment and Plan - Plan Impression Septic L knee, S/P LTKA, C/S MSSA. - S/P removal of prosthesis and placement of abx spacer Prosthetic knee joint infection Hx Parkinson's COPD Chronic kidney disease Morbid obesity BMI 38.6 kg/m Recommendation Continue Ancef IV 2 g IV every 8 hours more directed therapy for MSSA infection. Once ready for D/C will place PICC Plan 6 weeks IV Abx Labs weekly while on Abx: CBC, creat Follow cultures Monitor progress
--- NOTE | 2018-04-15 10:45 | P.PNOP ---
Subjective Interval history: pain controlled. Physical Exam Vital signs: Vital Signs 04/14/18 11:48 04/14/18 12:00 04/14/18 16:00 Temperature 97.6 F 97.5 F L Pulse Rate 84 78 87 Respiratory Rate 14 16 Blood Pressure 128/59 L 118/59 L Pulse Oximetry 98 97 04/14/18 20:00 04/14/18 20:04 04/15/18 00:00 Temperature 98 F 97.8 F Pulse Rate 87 86 84 Respiratory Rate 18 17 18 Blood Pressure 138/63 146/74 H Pulse Oximetry 96 97 95 04/15/18 04:00 04/15/18 08:00 Temperature 97.8 F 97.6 F Pulse Rate 86 80 Respiratory Rate 16 18 Blood Pressure 157/68 H 125/60 Pulse Oximetry 98 98 Intake & Output 04/14/18 04/15/18 04/15/18 18:59 06:59 18:59 Intake Total 1200 / 1200 2001 Output Total 1200 / 1200 1350 / 1350 Balance 0 / 0 652 / 652 Weight 114.7 kg Intake: IV 1200 / 1200 1762 / 1762 NS Inj 1,000 ML @ 100 mls/hr IV 1000 / 1000 1662 / 1662 .CONT .Q10H TOO Rx#:[id number] Ancef Inj 2,000 MG In NS Inj 80 200 / 200 100 / 100 ML @ 200 mls/hr IV.SIG Q8H TOO Rx#:[id number] Oral 240 / 240 Output: Urine 1350 / 1350 Urine Amount (Catheter) 1200 / 1200 Female External 1200 / 1200 Other: Date of Last Bowel Movement 04/11/18 04/11/18 Narrative: in bed, nad dressing c/d/i neg estela nvi - Urinary Catheter Management Female External Cath placed during this visit: no Results - Labs CBC & Chem 7: 04/12/18 08:15 04/12/18 08:15 Laboratory Results - last 24 hr 04/15/18 07:59 POC Glucose 112 H Microbiology 04/13/18 10:10 Wound - Knee Gram Stain - Final 04/13/18 10:10 Wound - Knee Wound Culture - Final Staphylococcus aureus 04/13/18 10:10 Wound - Knee Acid Fast Bacilli Smear - Final No acid fast bacilli seen 04/11/18 10:00 Blood - Peripheral Aerobic Blood Culture - Preliminary No growth in 3 days 04/11/18 10:00 Blood - Peripheral Anaerobic Blood Culture - Preliminary No growth in 3 days 04/11/18 10:00 Blood - Peripheral Aerobic Blood Culture - Preliminary No growth in 3 days 04/11/18 10:00 Blood - Peripheral Anaerobic Blood Culture - Preliminary No growth in 3 days 04/13/18 10:10 Wound - Knee Fungal Smear - Final No fungal elements seen Assessment and Plan - Ortho Post Op Day # 2 - Assessment and Plan pod 2 s/p I and D with removal of infected TKA placement of antibiotic spacer cultures JAMIA plan continue ancef per infectous disease nwb LLE lovenox scd's will need pic line and care home iv abx will need snf for discharge f/up dr. estevez 2 weeks
--- NOTE | 2018-04-15 11:46 | P.PN ---
Subjective Interval history: Follow-up left septic joint April 12 2018-patient seen and examined, complains of left knee pain, afebrile. Currently n.p.o. April 13 2018-patient seen and examined, she was taken to the OR this morning for removal of left prosthesis April 14, 2018-patient seen and examined, afebrile, reports some throbbing left knee joint. Alert and oriented 2 April 15, 2018-patient seen and examined, pain to left knee control. No acute event overnight. Physical Exam Vital signs: Vital Signs 04/14/18 11:48 04/14/18 12:00 04/14/18 16:00 Temperature 97.6 F 97.5 F L Pulse Rate 84 78 87 Respiratory Rate 14 16 Blood Pressure 128/59 L 118/59 L Pulse Oximetry 98 97 04/14/18 20:00 04/14/18 20:04 04/15/18 00:00 Temperature 98 F 97.8 F Pulse Rate 87 86 84 Respiratory Rate 18 17 18 Blood Pressure 138/63 146/74 H Pulse Oximetry 96 97 95 04/15/18 04:00 04/15/18 08:00 04/15/18 10:47 Temperature 97.8 F 97.6 F Pulse Rate 86 80 Respiratory Rate 16 18 Blood Pressure 157/68 H 125/60 Pulse Oximetry 98 98 96 Intake & Output 04/14/18 04/15/18 04/15/18 18:59 06:59 18:59 Intake Total 1200 / 1200 2001 Output Total 1200 / 1200 1350 / 1350 Balance 0 / 0 652 / 652 Weight 114.7 kg Intake: IV 1200 / 1200 1762 / 1762 NS Inj 1,000 ML @ 100 mls/hr IV 1000 / 1000 1662 / 1662 .CONT .Q10H TOO Rx#:[id number] Ancef Inj 2,000 MG In NS Inj 80 200 / 200 100 / 100 ML @ 200 mls/hr IV.SIG Q8H TOO Rx#:[id number] Oral 240 / 240 Output: Urine 1350 / 1350 Urine Amount (Catheter) 1200 / 1200 Female External 1200 / 1200 Other: Date of Last Bowel Movement 04/11/18 04/11/18 Narrative: GENERAL: NAD SKIN: Warm and dry. HEAD: Normocephalic. EYES: No scleral icterus. No injection or drainage. NECK: Supple, trachea midline. No JVD or lymphadenopathy. CARDIOVASCULAR: Regular rate and rhythm without murmurs, gallops, or rubs. RESPIRATORY: Breath sounds equal bilaterally. No accessory muscle use. GASTROINTESTINAL: Abdomen soft, non-tender, nondistended. MUSCULOSKELETAL: No cyanosis, or edema. brace over left knee BACK: Nontender without obvious deformity. No CVA tenderness. - Urinary Catheter Management Female External Cath placed during this visit: no Results - Labs CBC & Chem 7: 04/12/18 08:15 04/12/18 08:15 Laboratory Results - last 24 hr 04/15/18 07:59 POC Glucose 112 H Microbiology 04/11/18 10:00 Blood - Peripheral Aerobic Blood Culture - Preliminary No growth in 4 days 04/11/18 10:00 Blood - Peripheral Anaerobic Blood Culture - Preliminary No growth in 4 days 04/11/18 10:00 Blood - Peripheral Aerobic Blood Culture - Preliminary No growth in 4 days 04/11/18 10:00 Blood - Peripheral Anaerobic Blood Culture - Preliminary No growth in 4 days 04/13/18 10:10 Wound - Knee Gram Stain - Final 04/13/18 10:10 Wound - Knee Wound Culture - Final Staphylococcus aureus 04/13/18 10:10 Wound - Knee Acid Fast Bacilli Smear - Final No acid fast bacilli seen 04/13/18 10:10 Wound - Knee Fungal Smear - Final No fungal elements seen Assessment and Plan - Plan 67-year-old female with Left septic knee joint Status post removal of left knee prosthesis April 13 2018 status post knee joint aspiration in ED Currently on Ancef IV per ID, s/p vancomycin and Rocephin . Patient will need IV antibiotic therapy for 6 weeks Appreciate input from ID Place PICC line prior to discharge Synovial joint culture positive for staph aureus PT to treat and eval Chronic kidney disease Avoid nephrotoxins. Continue to monitor creatinine. Asymptomatic bacteriuria Urine culture negative Hypertension Lopressor 50 mg twice daily Parkinson/COPD/depression/anxiety/dyslipidemia Continue with home medication. DVT prophylaxis -SCDs.
[2018-04-15] MEDS: guaiFENesin 600 MG ER Tablet PO SCH (12:52)
--- NOTE | 2018-04-15 19:26 | P.CONNP ---
<Madai Patel - Last Filed: 04/15/18 19:10> History of Present Illness Service: Nephrology Consult date: 04/15/18 Requesting Physician: Sorin Seals Reason for Consult: PICC assessment Primary Care Provider: Chet Garg MD Family Provider: Chet Garg MD Chief Complaint: severe left knee pain History of Present Illness: The patient is a 67 yo [place] female who presented to this facility on 04/11 with complaints of severe L knee pain. Underwent total knee replacement in August of this year. States she fell on her knee about 6 weeks ago and developed progressively worsening pain requiring eval at the hospital. On ED admission, she had knee aspirated that was concerning for septic knee. Aspirate showed MSSA and underwent hardware removal on 04/13 with antibiotic spacer placement. She has been on Ancef with recommended 6 weeks duration prior to replacement of knee hardware. We have been consulted for evaluation for PICC placement. 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 She had evaluation with a previous colleague of Dr. Finch in 2011 and at that time was suspected her underlying CKD was related to sclerosis of hypertension, however, at today's exam says she has only had hypertension x2 years. Does not see an outpatient wood crew supervisor and says her primary care physician monitors her kidney functions, but is unaware of the severity. In fact when I said stage 4 CKD, she was quite taken aback. Last labs in house drawn 04/12 showing SCr 2.49 with eGFR 19. During August admission for knee replacement, her SCr was 2.6-2.7. Denies any NSAID use at home. Also denies any NVD. [facility] - History History Provided By: Patient - Medical History Medical History: Medical History (Last Updated 04/15/18 @ 19:18 by KO Jiménez) Anxiety COPD (chronic obstructive pulmonary disease) Chronic kidney disease (CKD) Depression HTN (hypertension) Hyperlipidemia Osteoarthritis Parkinson disease Schizoaffective disorder - Surgical History Surgical History: Surgical History (Last Reviewed 04/13/18 @ 06:55 by Srinivas Vila) History of knee replacement - Family History Family History: Family History (Last Updated 04/11/18 @ 17:05 by Kylah Cortez MD) Other Family history reviewed with no changes - Tobacco History Second Hand Smoke Exposure: No Tobacco Use In Past 30 Days: No Smoking Status: Former smoker Tobacco Type: Cigarettes - Alcohol History How Often Do You Have a Drink Containing Alcohol: Never - Substance Use History Substance History: Past History - Substance Use Type Alcohol Type: marijuana, alcohol Status: Sustained Remission Route Used: By Mouth Reason for Use: Calm Down, Feels Good - Travel History Recent Travel in the [place] Within the Last 8 Weeks: No Recent Travel Out of the Country Within the Last 8 Weeks: No - Immunization History Tetanus Immunization: Unable to Assess Hx Influenza Vaccine This Season: Yes Medications and Allergies Allergies Allergy/AdvReac Type Severity Reaction Status Date / Time apple Allergy Severe Nausea/Vomi Verified 04/11/18 09:49 ting carisoprodol Allergy Severe TREMORS Verified 04/11/18 09:49 chlorpromazine Allergy Severe unknown Verified 04/11/18 09:49 diatrizoate meglumine Allergy Severe CARDIAC Verified 04/11/18 09:49 ARREST egg Allergy Severe Nausea/Vomi Verified 04/11/18 09:49 ting gadobenic acid Allergy Severe CARDIAC Verified 04/11/18 09:49 ARREST gadodiamide Allergy Severe CARDIAC Verified 04/11/18 09:49 ARREST gadoteridol Allergy Severe CARDIAC Verified 04/11/18 09:49 ARREST haloperidol Allergy Severe Hallucinati Verified 04/11/18 09:49 ons iodine Allergy Severe CARDIAC Verified 04/11/18 09:49 ARREST iodixanol Allergy Severe CARDIAC Verified 04/11/18 09:49 ARREST iohexol Allergy Severe CARDIAC Verified 04/11/18 09:49 ARREST morphine Allergy Severe CARDIAC Verified 04/11/18 09:49 ARREST phenobarbital Allergy Severe HYPOKALEMIA Verified 04/11/18 09:49 potassium iodide Allergy Severe CARDIAC Verified 04/11/18 09:49 ARREST povidone-iodine Allergy Severe CARDIAC Verified 04/11/18 09:49 ARREST shrimp Allergy Severe Nausea/Vomi Verified 04/11/18 09:49 ting sodium iodide Allergy Severe CARDIAC Verified 04/11/18 09:49 ARREST sodium iodide Allergy Severe CARDIAC Verified 04/11/18 09:49 ARREST thioridazine Allergy Severe CARDIAC Verified 04/11/18 09:49 ARREST walnut Allergy Severe Nausea/Vomi Verified 04/11/18 09:49 ting lithium Allergy Intermediate EDEMA/DIARR Verified 04/11/18 09:49 HEA codeine Allergy Unknown Hallucinati Verified 04/11/18 09:49 ons aspirin AdvReac Severe Nausea/Vomi Verified 04/11/18 09:49 ting Penicillins AdvReac Mild Nausea/Vomi Verified 04/11/18 09:49 ting alcohol AdvReac Nausea/Vomi Verified 04/11/18 09:49 ting Home Medications Medication Instructions Recorded Confirmed Type albuterol sulfate 2.5 mg INHALATION HS 04/11/18 04/11/18 History aripiprazole [Abilify] 15 mg PO DAILY 04/11/18 04/11/18 History carbidopa-levodopa [Sinemet] 1 tab PO QID 04/11/18 04/11/18 History clonazepam [Klonopin] 0.5 mg PO BID 04/11/18 04/11/18 History fenofibrate nanocrystallized 145 mg PO HS 04/11/18 04/11/18 History [Tricor] fluticasone [Flonase Allergy 2 spray INTRANASAL DAILY 04/11/18 04/11/18 History Relief] fluticasone-vilanterol [Breo 1 puff INHALATION DAILY 04/11/18 04/11/18 History Ellipta] gabapentin 400 mg PO QID 04/11/18 04/11/18 History guaifenesin [Mucinex] 600 mg PO Q12H 04/11/18 04/11/18 History ipratropium-albuterol [Combivent 2 puff INHALATION Q4HR PRN 04/11/18 04/11/18 History Respimat] loratadine [Claritin] 10 mg PO DAILY PRN 04/11/18 04/11/18 History omeprazole 40 mg PO DAILY 04/11/18 04/11/18 History oxcarbazepine [Trileptal] 600 mg PO BID 04/11/18 04/11/18 History permethrin [Elimite] 1 applic TOPICAL ONCE 04/11/18 04/11/18 History trazodone 150 mg PO HS 04/11/18 04/11/18 History Active Medications: Active Medications Acetaminophen (Tylenol) 650 mg PO Q4H PRN PRN Reason: Temp > 100.4 Al Hydroxide/Mg Hydroxide (Milk Of Magnesia Liq) 30 ml PO Q12H PRN PRN Reason: Mild Constipation Albuterol (Ventolin Hfa Inh) 2 puff INH Q4HR PRN PRN Reason: SHORTNESS OF BREATH Albuterol (Albuterol Neb (Odilia)) 2.5 mg INH HS NEB [facility] Last Admin: 04/14/18 20:02 Dose: 2.5 mg Aripiprazole (Abilify) 15 mg PO DAILY [facility] Last Admin: 04/15/18 09:32 Dose: 15 mg Bisacodyl (Dulcolax Supp) 10 mg RECTAL DAILY PRN PRN Reason: SEVERE CONSITIPATION Carbidopa/Levodopa (Sinemet 25/100 Mg) 1 tab PO QID [facility] Last Admin: 04/15/18 17:31 Dose: 1 tab Chlorhexidine Gluconate (Chlorhexidine 2% Cloth) [address] [employer] [facility] Stop: 04/16/18 04:47 Clonazepam (Klonopin) 0.5 mg PO BID [facility] Last Admin: 04/15/18 09:33 Dose: 0.5 mg Fenofibrate (Tricor) 145 mg PO HS [facility] Last Admin: 04/14/18 21:34 Dose: 145 mg Fluticasone Propionate (Flonase Nasal Dixon) 2 spray EACH NARE DAILY [facility] Last Admin: 04/15/18 09:33 Dose: 2 spray Fluticasone/Vilanterol (Breo Ellipta 100/25 Mcg Inh) 1 puff INH DAILY [facility] Last Admin: 04/15/18 09:33 Dose: 1 puff Gabapentin (Neurontin) 400 mg PO BID [facility] Last Admin: 04/15/18 09:32 Dose: 400 mg Guaifenesin (Mucinex Er) 600 mg PO Q12H [facility] Last Admin: 04/15/18 12:52 Dose: 600 mg Sodium Chloride (Ns Inj) 1,000 mls @ 0 mls/hr IV.SIG .Q0M [facility] Last Infusion: 04/11/18 11:00 Dose: Infused Sodium Chloride (Ns Inj) 1,000 mls @ 0 mls/hr IV.SIG .Q0M [facility] Last Infusion: 04/11/18 11:45 Dose: Infused Sodium Chloride (Ns Inj) 1,000 mls @ 100 mls/hr IV.CONT .Q10H [facility] Last Admin: 04/15/18 09:39 Dose: Not Given Lactated Ringer's (Lr 1000 Ml Inj) 1,000 mls @ 75 mls/hr IV.SIG .[id number] [facility] Last Admin: 04/15/18 06:38 Dose: Not Given Sodium Chloride (Ns Inj) 500 mls @ 30 mls/hr IV.SIG .Q10H [facility] Stop: 04/16/18 04:47 Lactated Ringer's (Lr 1000 Ml Inj) 1,000 mls @ 30 mls/hr IV.SIG .Q24H PRN PRN Reason: START OF SURGERY Stop: 04/16/18 04:47 Cefazolin Sodium 2,000 mg/ (Sodium Chloride) 100 mls @ 200 mls/hr IV.SIG Q8H [facility] Last Infusion: 04/15/18 18:10 Dose: Infused Lactulose (Lactulose Liq) 30 ml PO DAILY PRN PRN Reason: SEVERE CONSITIPATION Loratadine (Claritin) 10 mg PO DAILY PRN PRN Reason: ALLERGIES Metoprolol Tartrate (Lopressor) [address] [employer] [facility] Stop: 04/16/18 04:47 Metoprolol Tartrate (Lopressor) 50 mg PO BID [facility] Last Admin: 04/15/18 09:32 Dose: 50 mg Ondansetron HCl (Zofran Inj) 4 mg IV.PUSH Q6H PRN PRN Reason: NAUSEA OR VOMITING Oxcarbazepine (Trileptal) 600 mg PO BID [facility] Last Admin: 04/15/18 09:32 Dose: 600 mg Oxycodone/Acetaminophen (Percocet 5/325 Mg) 1 tab PO Q4H PRN PRN Reason: pain 1 to 10 Last Admin: 04/15/18 17:31 Dose: 1 tab Pantoprazole Sodium (Protonix) 40 mg PO DAILY [facility] Last Admin: 04/15/18 09:32 Dose: 40 mg Permethrin (Elimite 5% Cream) 1 applicatio TOPICAL ONCE [facility] Sennosides (Senokot) 17.2 mg PO Q12H PRN PRN Reason: Moderate Constipation Trazodone HCl (Desyrel) 150 mg PO [facility] Last Admin: 04/14/18 21:34 Dose: 150 mg Exam Vital signs: Vital Signs 04/14/18 20:00 04/14/18 20:04 04/15/18 00:00 Temperature 98 F 97.8 F Pulse Rate 87 86 84 Respiratory Rate 18 17 18 Blood Pressure 138/63 146/74 H Pulse Oximetry 96 97 95 04/15/18 04:00 04/15/18 08:00 04/15/18 10:47 Temperature 97.8 F 97.6 F Pulse Rate 86 80 Respiratory Rate 16 18 Blood Pressure 157/68 H 125/60 Pulse Oximetry 98 98 96 04/15/18 12:00 04/15/18 16:00 Temperature 98.3 F 99.0 F Pulse Rate 72 79 Respiratory Rate 18 18 Blood Pressure 127/61 118/60 Pulse Oximetry 97 98 Intake & Output 04/15/18 04/15/18 04/16/18 06:59 18:59 06:59 Intake Total 2001 1160 / 1160 Output Total 1350 / 1350 900 / 900 Balance 652 / 652 260 / 260 Weight 114.7 kg Intake: IV 1762 / 1762 200 / 200 NS Inj 1,000 ML @ 100 mls/hr IV 1662 / 1662 .CONT .Q10H [facility] Rx#:[id number] Ancef Inj 2,000 MG In NS Inj 80 100 / 100 200 / 200 ML @ 200 mls/hr IV.SIG Q8H [facility] Rx#:[id number] Oral 240 / 240 960 / 960 Output: Urine 1350 / 1350 900 / 900 Other: Date of Last Bowel Movement 04/11/18 # Bowel Movements 0 - Constitutional no acute distress, obese, disheveled - Routine HEENT Exam Head: Present: normocephalic, atraumatic - Routine Neck Exam Present: supple - Routine Respiratory Exam Present: CTA bilaterally - Routine Cardiovascular Exam Present: RRR, S1, S2 - Routine Abdominal Exam Present: soft - Routine Extremities Exam Absent: edema - Routine Neurological Exam Present: alert Results - Lab Results 04/12/18 08:15 04/12/18 08:15 Most recent lab results Calcium 8.4 mg/dL (8.5-10.1) L 04/12/18 08:15 Assessment and Plan - Assessment (1) Chronic kidney disease, stage IV (severe) Code(s): N18.4 - Chronic kidney disease, stage 4 (severe) Status: Acute Plan: Appears that she is at her baseline renal function. I discussed with the patient the severity of her renal decline and she seemed surprised; however, despite the severity of decline, her renal functions have remained relatively stable over the past several years. I did mention that she may require dialytic intervention within her lifetime, and therefore would recommend against a PICC line as to preserve her peripheral vasculature for potential need of hemodialysis shunt in the future. Would recommend instead a Carter catheter. Will defer this to the primary team as well as ID as she will require 6 weeks of IV abx. Repeat renal panel in the AM. Was hypernatremic on 04/12 likely related to free water deficit. Did encourage po intake. Otherwise, consideration to be given to dose adjust Trileptal as literature recommends 150mg BID dosing for eGFR <30. Avoid nephrotoxic medications such as iodinated contrast dyes and NSAIDs. Avoid gadolinium. Will follow in the periphery. Please call if needed. Did advise the patient that it would be within her best interest to establish and follow with an outpatient wood crew supervisor regularly. (2) Essential (primary) hypertension Code(s): I10 - Essential (primary) hypertension Status: Acute (3) Septic arthritis of knee, left Code(s): M00.9 - Pyogenic arthritis, unspecified Status: Acute (4) Anemia Code(s): D64.9 - Anemia, unspecified Status: Acute Plan: Repeat CBC with Fe panel. Likely some degree of underlying anemia of renal disease. <Natasha Finch - Last Filed: 04/16/18 17:15> History of Present Illness Primary Care Provider: Chet Garg MD Family Provider: Chet Garg MD [facility] - Medical History Medical History: Medical History (Last Updated 04/15/18 @ 19:18 by KO Jiménez) Anxiety COPD (chronic obstructive pulmonary disease) Chronic kidney disease (CKD) Depression HTN (hypertension) Hyperlipidemia Osteoarthritis Parkinson disease Schizoaffective disorder - Surgical History Surgical History: Surgical History (Last Reviewed 04/13/18 @ 06:55 by Srinivas Vila) History of knee replacement - Family History Family History: Family History (Last Updated 04/11/18 @ 17:05 by Kylah Cortez MD) Other Family history reviewed with no changes Medications and Allergies Active Medications: Active Medications Acetaminophen (Tylenol) 650 mg PO Q4H PRN PRN Reason: Temp > 100.4 Al Hydroxide/Mg Hydroxide (Milk Of Joan Liq) 30 ml PO Q12H PRN PRN Reason: Mild Constipation Albuterol (Ventolin Hfa Inh) 2 puff INH Q4HR PRN PRN Reason: SHORTNESS OF BREATH Aripiprazole (Abilify) 15 mg PO DAILY [facility] Last Admin: 04/16/18 08:43 Dose: 15 mg Bisacodyl (Dulcolax Supp) 10 mg RECTAL DAILY PRN PRN Reason: SEVERE CONSITIPATION Carbidopa/Levodopa (Sinemet 25/100 Mg) 1 tab PO QID [facility] Last Admin: 04/16/18 17:11 Dose: 1 tab Clonazepam (Klonopin) 0.5 mg PO BID [facility] Last Admin: 04/16/18 08:43 Dose: 0.5 mg Fenofibrate (Tricor) 145 mg PO HS [facility] Last Admin: 04/15/18 20:20 Dose: 145 mg Ferrous Fumarate (Hemocyte) 324 mg PO DAILY [facility] Fluticasone Propionate (Flonase Nasal Dixon) 2 spray EACH NARE DAILY [facility] Last Admin: 04/16/18 08:49 Dose: 2 spray Fluticasone/Vilanterol (Breo Ellipta 100/25 Mcg Inh) 1 puff INH DAILY [facility] Last Admin: 04/16/18 08:49 Dose: 1 puff Gabapentin (Neurontin) 400 mg PO BID [facility] Last Admin: 04/16/18 08:43 Dose: 400 mg Guaifenesin (Mucinex Er) 600 mg PO Q12H [facility] Last Admin: 04/16/18 12:27 Dose: 600 mg Sodium Chloride (Ns Inj) 1,000 mls @ 0 mls/hr IV.SIG .Q0M [facility] Last Infusion: 04/11/18 11:00 Dose: Infused Sodium Chloride (Ns Inj) 1,000 mls @ 0 mls/hr IV.SIG .Q0M [facility] Last Infusion: 04/11/18 11:45 Dose: Infused Sodium Bicarbonate 75 meq/ (Sodium Chloride) 1,000 mls @ 100 mls/hr IV.CONT .Q10H [facility] Last Admin: 04/16/18 13:41 Dose: 100 mls/hr Cefazolin Sodium/Dextrose (Ancef 2 Gm Premix Inj) 2 gm in 50 mls @ 100 mls/hr IV.SIG RIGHT OF [address] [employer] [facility] Stop: 04/20/18 13:59 Vancomycin HCl 1,000 mg/ (Sodium Chloride) 250 mls @ 250 mls/hr IV.SIG RIGHT OF [address] [employer] [facility] Stop: 04/20/18 13:59 Cefazolin Sodium 2,000 mg/ (Sodium Chloride) 100 mls @ 200 mls/hr IV.SIG Q12H [facility] Last Infusion: 04/16/18 15:57 Dose: Infused Lactulose (Lactulose Liq) 30 ml PO DAILY PRN PRN Reason: SEVERE CONSITIPATION Loratadine (Claritin) 10 mg PO DAILY PRN PRN Reason: ALLERGIES Metoprolol Tartrate (Lopressor) 50 mg PO BID [facility] Last Admin: 04/16/18 08:44 Dose: 50 mg Ondansetron HCl (Zofran Inj) 4 mg IV.PUSH Q6H PRN PRN Reason: NAUSEA OR VOMITING Oxcarbazepine (Trileptal) 600 mg PO BID [facility] Last Admin: 04/16/18 08:43 Dose: 600 mg Oxycodone/Acetaminophen (Percocet 5/325 Mg) 1 tab PO Q4H PRN PRN Reason: pain 1 to 10 Last Admin: 04/16/18 08:44 Dose: 1 tab Pantoprazole Sodium (Protonix) 40 mg PO DAILY [facility] Last Admin: 04/16/18 08:43 Dose: 40 mg Permethrin (Elimite 5% Cream) 1 applicatio TOPICAL ONCE [facility] Sennosides (Senokot) 17.2 mg PO Q12H PRN PRN Reason: Moderate Constipation Trazodone HCl (Desyrel) 150 mg PO [facility] Last Admin: 04/15/18 20:20 Dose: 150 mg Exam Vital signs: Vital Signs 04/15/18 20:00 04/16/18 00:00 04/16/18 00:42 Temperature 98.8 F 97.1 F L Pulse Rate 82 78 78 Respiratory Rate 18 18 Blood Pressure 135/64 130/60 Pulse Oximetry 93 L 93 L 04/16/18 04:00 04/16/18 08:00 04/16/18 09:35 Temperature 97.8 F 97.8 F Pulse Rate 79 80 Respiratory Rate 18 18 18 Blood Pressure 118/73 150/70 H Pulse Oximetry 97 98 04/16/18 12:00 04/16/18 15:03 Temperature 97.6 F 97.3 F L Pulse Rate 70 72 Respiratory Rate 18 18 Blood Pressure 123/58 L 147/69 H Pulse Oximetry 95 99 Intake & Output 04/15/18 04/16/18 04/16/18 18:59 06:59 18:59 Intake Total 1498 / 1498 1340 / 1340 1820 / 1820 Output Total 900 / 900 1700 / 1700 1300 / 1300 Balance 598 / 598 -360 / -360 520 / 520 Weight 116.8 kg Intake: IV 538 / 538 1100 / 1100 1100 / 1100 NS Inj 1,000 ML @ 100 mls/hr IV 338 / 338 1000 / 1000 900 / 900 .CONT .Q10H [facility] Rx#:[id number] Ancef Inj 2,000 MG In NS Inj 80 200 / 200 100 / 100 200 / 200 ML @ 200 mls/hr IV.SIG Q12H [facility] Rx#:[id number] Oral 960 / 960 240 / 240 720 / 720 Output: Urine 900 / 900 1700 / 1700 1300 / 1300 Other: Date of Last Bowel Movement 04/11/18 # Bowel Movements 0 0 0 Results - Lab Results 04/16/18 07:13 04/16/18 07:13 Most recent lab results Calcium 8.1 mg/dL (8.5-10.1) L 04/16/18 07:13 Phosphorus 3.7 mg/dL (2.5-4.9) 04/16/18 07:13 Assessment and Plan - Assessment (1) Chronic kidney disease, stage IV (severe) Code(s): N18.4 - Chronic kidney disease, stage 4 (severe) Status: Chronic (2) Essential (primary) hypertension Code(s): I10 - Essential (primary) hypertension Status: Chronic (3) Septic arthritis of knee, left Code(s): M00.9 - Pyogenic arthritis, unspecified Status: Acute (4) Anemia Code(s): D64.9 - Anemia, unspecified Status: Chronic - Attending Attestation The exam, history, and the medical decision-making described in the above note were completed with the assistance of the JHONATHAN. I reviewed and agree with the findings presented. I attest that I had a [id number] encounter with the patient on the same day, and personally performed and documented my assessment and findings in the medical record. <Natasha Finch - Last Filed: 04/16/18 17:15> (3) Septic arthritis of knee, left Qualifiers: Septic arthritis organism: staphylococcal Qualified Code(s): M00.062 - Staphylococcal arthritis, left knee (4) Anemia Qualifiers: Anemia type: iron deficiency
[2018-04-15] MEDS: traZODone 100 MG Tablet PO SCH (20:20)
[2018-04-15] MEDS: Fenofibrate 145 MG Tablet PO SCH (20:20)
[2018-04-16] MEDS: ceFAZolin Inj 2,000 MG in Sodium Chlor 0.9% Inj 80 ML IV.SIG SCH ×3 (00:22→15:31)
[2018-04-16] MEDS: guaiFENesin 600 MG ER Tablet PO SCH ×3 (00:23→23:30)
[2018-04-16] MEDS: Sod Chloride 0.9% Inj 1,000 ML IV.CONT SCH ×2 (04:07→06:02)
[2018-04-16 07:43] LABS: Baso % (Auto) 0.4 % (0.0-2.0); Eos # (Auto) 0.1 th/mm3 (0.0-0.4); Eos % (Auto) 1.9 % (0.0-4.0); Hematocrit 24.4 % (35.0-46.0); Hemoglobin 7.9 gm/dL (11.6-15.3); Lymph # (Auto) 0.7 th/mm3 (1.0-4.8); Lymph % (Auto) 13.7 % (9.0-44.0); Mean Corpuscular HGB Conc 32.5 % (32.0-36.0); Mean Corpuscular Hemoglobin 31.3 pg (27.0-34.0); Mean Corpuscular Volume 96.3 fL (80.0-100.0); Mean Platelet Volume 7.6 fL (7.0-11.0); Mono # (Auto) 0.3 th/mm3 (0.0-0.9); Mono % (Auto) 6.2 % (0.0-8.0); Neut % (Auto) 77.8 % (16.0-70.0); Platelet Count 182 th/mm3 (150-450); Red Blood Count 2.54 mil/mm3 (4.00-5.30); Red Cell Distribution Width 16.1 % (11.6-17.2); White Blood Count 5.2 th/mm3 (4.0-11.0)
[2018-04-16 08:05] LABS: % Iron Saturation 10.6 % (20-50); Albumin 2.2 g/dL (3.4-5.0); Calcium 8.1 mg/dL (8.5-10.1); Carbon Dioxide 19.1 meq/L (21.0-32.0); Phosphorus 3.7 mg/dL (2.5-4.9); Potassium 4.3 meq/L (3.5-5.1)
[2018-04-16] MEDS: clonazePAM 0.5 MG Tablet PO SCH ×2 (08:43→22:10)
[2018-04-16] MEDS: Gabapentin 400 MG Capsule PO SCH ×2 (08:43→22:11)
[2018-04-16] MEDS: OXcarbazepine 600 MG Tablet PO SCH ×2 (08:43→22:10)
[2018-04-16] MEDS: Metoprolol Tartrate 50 MG Tablet PO SCH ×2 (08:44→22:11)
--- NOTE | 2018-04-16 09:22 | P.PNOP ---
Subjective Interval history: pain controlled. Physical Exam Vital signs: Vital Signs 04/15/18 10:47 04/15/18 12:00 04/15/18 16:00 Temperature 98.3 F 99.0 F Pulse Rate 75 81 Respiratory Rate 18 18 Blood Pressure 127/61 118/60 Pulse Oximetry 96 97 98 04/15/18 20:00 04/16/18 00:00 04/16/18 00:42 Temperature 98.8 F 97.1 F L Pulse Rate 82 78 78 Respiratory Rate 18 18 Blood Pressure 135/64 130/60 Pulse Oximetry 93 L 93 L 04/16/18 04:00 Temperature 97.8 F Pulse Rate 79 Respiratory Rate 18 Blood Pressure 118/73 Pulse Oximetry 97 Intake & Output 04/15/18 04/16/18 04/16/18 18:59 06:59 18:59 Intake Total 1498 / 1498 1340 / 1340 Output Total 900 / 900 1700 / 1700 Balance 598 / 598 -360 / -360 Weight 116.8 kg Intake: IV 538 / 538 1100 / 1100 NS Inj 1,000 ML @ 100 mls/hr IV 338 / 338 1000 / 1000 .CONT .Q10H [facility] Rx#:[id number] Ancef Inj 2,000 MG In NS Inj 80 200 / 200 100 / 100 ML @ 200 mls/hr IV.SIG Q8H [facility] Rx#:[id number] Oral 960 / 960 240 / 240 Output: Urine 900 / 900 1700 / 1700 Other: Date of Last Bowel Movement 04/11/18 # Bowel Movements 0 0 Narrative: in bed, nad dressing removed layla intact with minimal drainage, no erythema neg homans nvi - Urinary Catheter Management Female External Cath placed during this visit: no Results - Labs CBC & Chem 7: 04/16/18 07:13 04/16/18 07:13 Laboratory Results - last 24 hr 04/15/18 04/15/18 04/16/18 11:56 18:02 07:13 WBC 5.2 RBC 2.54 L Hgb 7.9 L Hct 24.4 L MCV 96.3 MCH 31.3 MCHC 32.5 RDW 16.1 Plt Count 182 MPV 7.6 Neut % (Auto) 77.8 H Lymph % (Auto) 13.7 Hayes % (Auto) 6.2 Eos % (Auto) 1.9 Baso % (Auto) 0.4 Neut # (Auto) 4.0 Lymph # (Auto) 0.7 L Hayes # (Auto) 0.3 Eos # (Auto) 0.1 Baso # (Auto) 0.0 WBC Differential . Differential Comment Auto diff final Sodium Potassium Chloride Carbon Dioxide Anion Gap BUN Creatinine Estimated GFR POC Glucose 164 H 156 H Random Glucose Calcium Phosphorus Iron TIBC % Saturation Ferritin Albumin 04/16/18 07:13 WBC RBC Hgb Hct MCV MCH MCHC RDW Plt Count MPV Neut % (Auto) Lymph % (Auto) Hayes % (Auto) Eos % (Auto) Baso % (Auto) Neut # (Auto) Lymph # (Auto) Hayes # (Auto) Eos # (Auto) Baso # (Auto) WBC Differential Differential Comment Sodium 144 Potassium 4.3 Chloride 115 H Carbon Dioxide 19.1 L Anion Gap 10 BUN 36 H Creatinine 2.78 H Estimated GFR 17 L POC Glucose Random Glucose 98 Calcium 8.1 L Phosphorus 3.7 Iron 29 L TIBC 273 % Saturation 10.6 L Ferritin 208 Albumin 2.2 L Microbiology 04/11/18 10:00 Blood - Peripheral Aerobic Blood Culture - Preliminary No growth in 4 days 04/11/18 10:00 Blood - Peripheral Anaerobic Blood Culture - Preliminary No growth in 4 days 04/11/18 10:00 Blood - Peripheral Aerobic Blood Culture - Preliminary No growth in 4 days 04/11/18 10:00 Blood - Peripheral Anaerobic Blood Culture - Preliminary No growth in 4 days 04/13/18 10:10 Wound - Knee Gram Stain - Final 04/13/18 10:10 Wound - Knee Wound Culture - Final Staphylococcus aureus Assessment and Plan - Assessment and Plan pod 2 s/p I and D with removal of infected TKA placement of antibiotic spacer cultures JAMIA plan continue ancef per infectous disease nwb LLE daily dressing changes lovenox scd's ortho stable will need pic line and administrative staff supervisor iv abx per ID will need snf for discharge f/up dr. estevez 2 weeks
--- NOTE | 2018-04-16 12:29 | P.PNNP ---
Subjective Interval history: The patient is a 67 yo [place] female who presented to this facility on 04/11 with complaints of severe L knee pain. Underwent total knee replacement in August of this year. States she fell on her knee about 6 weeks ago and developed progressively worsening pain requiring eval at the hospital. On ED admission, she had knee aspirated that was concerning for septic knee. Aspirate showed MSSA and underwent hardware removal on 04/13 with antibiotic spacer placement. She has been on Ancef with recommended 6 weeks duration prior to replacement of knee hardware. We have been consulted for evaluation for PICC placement. 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 She had evaluation with a previous colleague of Dr. Finch in 2011 and at that time was suspected her underlying CKD was related to sclerosis of hypertension, however, at today's exam says she has only had hypertension x2 years. Does not see an outpatient unit control worker and says her primary care physician monitors her kidney functions, but is unaware of the severity. In fact when I said stage 4 CKD, she was quite taken aback. Last labs in house drawn 04/12 showing SCr 2.49 with eGFR 19. During August admission for knee replacement, her SCr was 2.6-2.7. Denies any NSAID use at home. Also denies any NVD. 04/16/18 Pt seen sitting up in bed having breakfast. States she feels OK today. <Madai Patel - Last Filed: 04/16/18 12:54> Physical Exam Vital signs: Vital Signs 04/15/18 16:00 04/15/18 20:00 04/16/18 00:00 Temperature 99.0 F 98.8 F 97.1 F L Pulse Rate 81 82 78 Respiratory Rate 18 18 18 Blood Pressure 118/60 135/64 130/60 Pulse Oximetry 98 93 L 93 L 04/16/18 00:42 04/16/18 04:00 04/16/18 08:00 Temperature 97.8 F 97.8 F Pulse Rate 78 79 80 Respiratory Rate 18 18 Blood Pressure 118/73 150/70 H Pulse Oximetry 97 98 04/16/18 09:35 Temperature Pulse Rate Respiratory Rate 18 Blood Pressure Pulse Oximetry Intake & Output 04/15/18 04/16/18 04/16/18 18:59 06:59 18:59 Intake Total 1498 / 1498 1340 / 1340 100 / 100 Output Total 900 / 900 1700 / 1700 Balance 598 / 598 -360 / -360 100 / 100 Weight 116.8 kg Intake: IV 538 / 538 1100 / 1100 100 / 100 NS Inj 1,000 ML @ 100 mls/hr IV 338 / 338 1000 / 1000 .CONT .Q10H TOO Rx#:[id number] Ancef Inj 2,000 MG In NS Inj 80 200 / 200 100 / 100 100 / 100 ML @ 200 mls/hr IV.SIG Q8H TOO Rx#:[id number] Oral 960 / 960 240 / 240 Output: Urine 900 / 900 1700 / 1700 Other: Date of Last Bowel Movement 04/11/18 # Bowel Movements 0 0 - Constitutional no acute distress - Routine Neck Exam Present: supple - Routine Respiratory Exam Present: CTA bilaterally - Routine Cardiovascular Exam Present: RRR, S1, S2 - Routine Abdominal Exam Present: soft - Routine Extremities Exam Absent: edema - Routine Neurological Exam Present: alert, oriented X3 - Urinary Catheter Management Female External Cath placed during this visit: no <AmandaMadai R - Last Filed: 04/16/18 12:54> Vital signs: Vital Signs 04/15/18 20:00 04/16/18 00:00 04/16/18 00:42 Temperature 98.8 F 97.1 F L Pulse Rate 82 78 78 Respiratory Rate 18 18 Blood Pressure 135/64 130/60 Pulse Oximetry 93 L 93 L 04/16/18 04:00 04/16/18 08:00 04/16/18 09:35 Temperature 97.8 F 97.8 F Pulse Rate 79 80 Respiratory Rate 18 18 18 Blood Pressure 118/73 150/70 H Pulse Oximetry 97 98 04/16/18 12:00 04/16/18 15:03 Temperature 97.6 F 97.3 F L Pulse Rate 70 72 Respiratory Rate 18 18 Blood Pressure 123/58 L 147/69 H Pulse Oximetry 95 99 Intake & Output 04/15/18 04/16/18 04/16/18 18:59 06:59 18:59 Intake Total 1498 / 1498 1340 / 1340 1820 / 1820 Output Total 900 / 900 1700 / 1700 1300 / 1300 Balance 598 / 598 -360 / -360 520 / 520 Weight 116.8 kg Intake: IV 538 / 538 1100 / 1100 1100 / 1100 NS Inj 1,000 ML @ 100 mls/hr IV 338 / 338 1000 / 1000 900 / 900 .CONT .Q10H TOO Rx#:[id number] Ancef Inj 2,000 MG In NS Inj 80 200 / 200 100 / 100 200 / 200 ML @ 200 mls/hr IV.SIG Q12H TOO Rx#:[id number] Oral 960 / 960 240 / 240 720 / 720 Output: Urine 900 / 900 1700 / 1700 1300 / 1300 Other: Date of Last Bowel Movement 04/11/18 # Bowel Movements 0 0 0 - Urinary Catheter Management Female External Cath placed during this visit: no <Natasha Finch - Last Filed: 04/16/18 17:16> Assessment and Plan - Assessment (1) Chronic kidney disease, stage IV (severe) Code(s): N18.4 - Chronic kidney disease, stage 4 (severe) Status: Acute Plan: Renal functions deteriorated slightly and may be related to volume depletion. Will change IVF to 1/2 NS with bicarb and increase rate to 100mL/hr as she is mildly acidotic today. Renal panel in the AM. I discussed with the patient the severity of her renal decline and she seemed surprised; however, despite the severity of decline, her renal functions have remained relatively stable over the past several years. I did mention that she may require dialytic intervention within her lifetime, and therefore would recommend against a PICC line as to preserve her peripheral vasculature for potential need of hemodialysis shunt in the future. Would recommend instead a Carter catheter. Will defer this to the primary team as well as ID as she will require 6 weeks of IV abx. Otherwise, consideration to be given to dose adjust Trileptal as literature recommends 150mg BID dosing for eGFR <30. Avoid nephrotoxic medications such as iodinated contrast dyes and NSAIDs. Avoid gadolinium. Did advise the patient that it would be within her best interest to establish and follow with an outpatient unit control worker regularly. (2) Essential (primary) hypertension Code(s): I10 - Essential (primary) hypertension Status: Acute (3) Septic arthritis of knee, left Code(s): M00.9 - Pyogenic arthritis, unspecified Status: Acute (4) Anemia Code(s): D64.9 - Anemia, unspecified Status: Acute Qualifiers: Anemia type: iron deficiency Plan: Hgb dropped with low Fe stores. Start po Ferrous Fumarate. Will defer to primary if further eval necessary. <Madai Patel - Last Filed: 04/16/18 12:54> - Assessment (1) Chronic kidney disease, stage IV (severe) Code(s): N18.4 - Chronic kidney disease, stage 4 (severe) Status: Chronic (2) Essential (primary) hypertension Code(s): I10 - Essential (primary) hypertension Status: Chronic (3) Septic arthritis of knee, left Code(s): M00.9 - Pyogenic arthritis, unspecified Status: Acute Qualifiers: Septic arthritis organism: staphylococcal Qualified Code(s): M00.062 - Staphylococcal arthritis, left knee (4) Anemia Code(s): D64.9 - Anemia, unspecified Status: Chronic Qualifiers: Anemia type: iron deficiency - Attending Attestation Patient manifesting poor insight into medical issues. She was counseled again regarding severity of her renal insufficiency and the likelihood that she will require dialytic support in the not too distant future. The exam, history, and the medical decision-making described in the above note were completed with the assistance of the JHONATHAN. I reviewed and agree with the findings presented. I attest that I had a [id number] encounter with the patient on the same day, and personally performed and documented my assessment and findings in the medical record. <Natasha Finch - Last Filed: 04/16/18 17:16>
[2018-04-16] MEDS: Sodium Bicarbonate 8.4% Inj 75 MEQ in Sodium Chloride 0.45 % Inj 925 ML IV.CONT SCH (13:41)
[2018-04-16] MEDS ORDERED: Vancomycin Inj 1,000 MG in Sodium Chlor 0.9% Inj 250 ML IV.SIG SCH (14:00)
[2018-04-16] MEDS ORDERED: ceFAZolin 2 GM Premix Inj 2 GM/50 ML PIGGYBACK IV.SIG SCH (14:00)
--- NOTE | 2018-04-16 14:15 | P.PNID ---
Subjective Remarks: is a 67-year-old female, resides in the [facility], brought into the hospital for evaluation of acute left knee pain. Patient has had prior bilateral knee replacement, and the night prior to admission she stated that she was limping. When she woke up the following day, she had noted swelling on her left knee, and severe pain that she could not walk. Normally she walks using a walker. She has not had any fever chills or sweats. Patient stated that she fell about 2 weeks ago, but did not sustain any kind of injury. She apparently also was given an antibiotic for some skin infection that she had in her arms in the least several weeks. Patient after she had her surgery on the left knee back in August 2017 had an uncomplicated course. Since admission she has had low-grade temps. Her WBC is normal. Arthrocentesis of the left knee was done and it showed leukocytosis, and it is now growing staph aureus. Infectious disease consultation has been requested to evaluate the patient. Notes reviewed Temps ok No new complaints Ortho did OR 04/13 Underwent removal of prosthesis and placement of spacer. Intraop cultures with MSSA. Pain under control renal notes reviewed No rash No diarrhea Antibiotics: Ancef Lines: lines ok Past Medical History: Anxiety COPD (chronic obstructive pulmonary disease) Chronic kidney disease (CKD) Depression HTN (hypertension) Hyperlipidemia Osteoarthritis Parkinson disease History of knee replacement Allergies/Adverse Reactions: Allergies apple Allergy (Severe, Verified 04/11/18 09:49) Nausea/Vomiting carisoprodol Allergy (Severe, Verified 04/11/18 09:49) TREMORS chlorpromazine Allergy (Severe, Verified 04/11/18 09:49) unknown diatrizoate meglumine Allergy (Severe, Verified 04/11/18 09:49) CARDIAC ARREST egg Allergy (Severe, Verified 04/11/18 09:49) Nausea/Vomiting gadobenic acid Allergy (Severe, Verified 04/11/18 09:49) CARDIAC ARREST gadodiamide Allergy (Severe, Verified 04/11/18 09:49) CARDIAC ARREST gadoteridol Allergy (Severe, Verified 04/11/18 09:49) CARDIAC ARREST haloperidol Allergy (Severe, Verified 04/11/18 09:49) Hallucinations iodine Allergy (Severe, Verified 04/11/18 09:49) CARDIAC ARREST iodixanol Allergy (Severe, Verified 04/11/18 09:49) CARDIAC ARREST iohexol Allergy (Severe, Verified 04/11/18 09:49) CARDIAC ARREST morphine Allergy (Severe, Verified 04/11/18 09:49) CARDIAC ARREST phenobarbital Allergy (Severe, Verified 04/11/18 09:49) HYPOKALEMIA potassium iodide Allergy (Severe, Verified 04/11/18 09:49) CARDIAC ARREST povidone-iodine Allergy (Severe, Verified 04/11/18 09:49) CARDIAC ARREST shrimp Allergy (Severe, Verified 04/11/18 09:49) Nausea/Vomiting sodium iodide Allergy (Severe, Verified 04/11/18 09:49) CARDIAC ARREST sodium iodide Allergy (Severe, Verified 04/11/18 09:49) CARDIAC ARREST thioridazine Allergy (Severe, Verified 04/11/18 09:49) CARDIAC ARREST walnut Allergy (Severe, Verified 04/11/18 09:49) Nausea/Vomiting lithium Allergy (Intermediate, Verified 04/11/18 09:49) EDEMA/DIARRHEA codeine Allergy (Unknown, Verified 04/11/18 09:49) Hallucinations aspirin Adverse Reaction (Severe, Verified 04/11/18 09:49) Nausea/Vomiting Penicillins Adverse Reaction (Mild, Verified 04/11/18 09:49) Nausea/Vomiting NAUSEA alcohol Adverse Reaction (Verified 04/11/18 09:49) Nausea/Vomiting Objective Vital Signs 04/15/18 16:00 04/15/18 20:00 04/16/18 00:00 Temperature 99.0 F 98.8 F 97.1 F L Pulse Rate 81 82 78 Respiratory Rate 18 18 18 Blood Pressure 118/60 135/64 130/60 Pulse Oximetry 98 93 L 93 L 04/16/18 00:42 04/16/18 04:00 04/16/18 08:00 Temperature 97.8 F 97.8 F Pulse Rate 78 79 80 Respiratory Rate 18 18 Blood Pressure 118/73 150/70 H Pulse Oximetry 97 98 04/16/18 09:35 04/16/18 12:00 Temperature 97.6 F Pulse Rate 70 Respiratory Rate 18 18 Blood Pressure 123/58 L Pulse Oximetry 95 Intake & Output 04/15/18 04/16/18 04/16/18 18:59 06:59 18:59 Intake Total 1498 / 1498 1340 / 1340 1000 / 1000 Output Total 900 / 900 1700 / 1700 Balance 598 / 598 -360 / -360 1000 / 1000 Weight 116.8 kg Intake: IV 538 / 538 1100 / 1100 1000 / 1000 NS Inj 1,000 ML @ 100 mls/hr IV 338 / 338 1000 / 1000 900 / 900 .CONT .Q10H TOO Rx#:[id number] Ancef Inj 2,000 MG In NS Inj 80 200 / 200 100 / 100 100 / 100 ML @ 200 mls/hr IV.SIG Q8H TOO Rx#:[id number] Oral 960 / 960 240 / 240 Output: Urine 900 / 900 1700 / 1700 Other: Date of Last Bowel Movement 04/11/18 # Bowel Movements 0 0 04/11/18 10:00 Blood - Peripheral Aerobic Blood Culture - Final No growth in 5 days 04/11/18 10:00 Blood - Peripheral Anaerobic Blood Culture - Final No growth in 5 days 04/11/18 10:00 Blood - Peripheral Aerobic Blood Culture - Final No growth in 5 days 04/11/18 10:00 Blood - Peripheral Anaerobic Blood Culture - Final No growth in 5 days 04/13/18 10:10 Wound - Knee Gram Stain - Final 04/13/18 10:10 Wound - Knee Wound Culture - Final Staphylococcus aureus 04/13/18 10:10 Wound - Knee Acid Fast Bacilli Smear - Final No acid fast bacilli seen 04/13/18 10:10 Wound - Knee Mycobacterial Culture - Pending 04/13/18 10:10 Wound - Knee Fungal Smear - Final No fungal elements seen 04/13/18 10:10 Wound - Knee Fungal Culture - Pending Lab - Hematology Results 04/16/18 07:13 WBC 5.2 RBC 2.54 L Hgb 7.9 L Hct 24.4 L MCV 96.3 MCH 31.3 MCHC 32.5 RDW 16.1 Plt Count 182 MPV 7.6 Neut % (Auto) 77.8 H Lymph % (Auto) 13.7 Karnes % (Auto) 6.2 Eos % (Auto) 1.9 Baso % (Auto) 0.4 Neut # (Auto) 4.0 Lymph # (Auto) 0.7 L Karnes # (Auto) 0.3 Eos # (Auto) 0.1 Baso # (Auto) 0.0 WBC Differential . Differential Comment Auto diff final Lab - Chemistry Results 04/15/18 04/15/18 04/15/18 07:59 11:56 18:02 Sodium Potassium Chloride Carbon Dioxide Anion Gap BUN Creatinine Estimated GFR POC Glucose 112 H 164 H 156 H Random Glucose Calcium Phosphorus Iron TIBC % Saturation Ferritin Albumin 04/16/18 07:13 Sodium 144 Potassium 4.3 Chloride 115 H Carbon Dioxide 19.1 L Anion Gap 10 BUN 36 H Creatinine 2.78 H Estimated GFR 17 L POC Glucose Random Glucose 98 Calcium 8.1 L Phosphorus 3.7 Iron 29 L TIBC 273 % Saturation 10.6 L Ferritin 208 Albumin 2.2 L Imaging: ITS Impressions Chest X-Ray 04/11/18 09:40 CONCLUSION: Negative examination. Knee X-Ray 04/13/18 12:21 CONCLUSION: Postoperative findings indicating revision of previously seen total knee prosthesis. Physical Exam: GENERAL: Well-nourished well-developed, NAD SKIN: Cool and dry, no generalized rash HEAD: Atraumatic. Normocephalic. No temporal or scalp tenderness. EYES: Pupils equal round and reactive. Scleral icterus. No injection or drainage. No petechia ENT: Moist mucosa NECK: Trachea midline. Supple, nontender, no meningeal signs. CARDIOVASCULAR: HS audible. RESPIRATORY: Clear to auscultation bilaterally. GASTROINTESTINAL: Abdomen soft nontender. MUSCULOSKELETAL: Left lower extremity especially of the knee joint patient in a brace postoperatively able to move her ankles with good pulsations at the ankle level. NEUROLOGICAL: Alert oriented 3. Nonfocal. Psych cooperative IV line sites ok. Assessment and Plan - Plan Impression Septic L knee, S/P LTKA, C/S MSSA. - S/P removal of prosthesis and placement of abx spacer Prosthetic knee joint infection, S/P removal of hardware Hx Parkinson's COPD Chronic kidney disease Morbid obesity BMI 38.6 kg/m Recommendation Continue Ancef IV 2 g IV every 8 hours more directed therapy for MSSA infection. Plan 6 weeks IV Abx Labs weekly while on Abx: CBC, creat Will clear with renal regarding venous access: PICC vs other IV access Monitor progress
[2018-04-16 16:36] LABS: Activated Partial Thrombo Time 43.1 sec (24.3-30.1); INR 1.6 Ratio; Prothrombin Time 16.1 sec (9.8-11.6)
[2018-04-16 16:45] LABS: Complement C3 167 mg/dL (90-180)
--- NOTE | 2018-04-16 17:05 | P.PN ---
Subjective Interval history: Patient was somnolent, just received p.o. narcotics. Answers questions after several prompts, oriented 3. No fever. Denies any chest pain, no shortness of breath. No acute changes overnight. Physical Exam Vital signs: Vital Signs 04/15/18 20:00 04/16/18 00:00 04/16/18 00:42 Temperature 98.8 F 97.1 F L Pulse Rate 82 78 78 Respiratory Rate 18 18 Blood Pressure 135/64 130/60 Pulse Oximetry 93 L 93 L 04/16/18 04:00 04/16/18 08:00 04/16/18 09:35 Temperature 97.8 F 97.8 F Pulse Rate 79 80 Respiratory Rate 18 18 18 Blood Pressure 118/73 150/70 H Pulse Oximetry 97 98 04/16/18 12:00 04/16/18 15:03 Temperature 97.6 F 97.3 F L Pulse Rate 70 72 Respiratory Rate 18 18 Blood Pressure 123/58 L 147/69 H Pulse Oximetry 95 99 Intake & Output 04/15/18 04/16/18 04/16/18 18:59 06:59 18:59 Intake Total 1498 / 1498 1340 / 1340 1820 / 1820 Output Total 900 / 900 1700 / 1700 1300 / 1300 Balance 598 / 598 -360 / -360 520 / 520 Weight 116.8 kg Intake: IV 538 / 538 1100 / 1100 1100 / 1100 NS Inj 1,000 ML @ 100 mls/hr IV 338 / 338 1000 / 1000 900 / 900 .CONT .Q10H TOO Rx#:[id number] Ancef Inj 2,000 MG In NS Inj 80 200 / 200 100 / 100 200 / 200 ML @ 200 mls/hr IV.SIG Q12H TOO Rx#:[id number] Oral 960 / 960 240 / 240 720 / 720 Output: Urine 900 / 900 1700 / 1700 1300 / 1300 Other: Date of Last Bowel Movement 04/11/18 # Bowel Movements 0 0 0 Narrative: GENERAL: 59-year-old obese female, no distress. SKIN: Warm and dry. HEAD: Atraumatic. Normocephalic. EYES: Pupils pinpoint. No scleral icterus. No injection or drainage. ENT: No nasal bleeding or discharge. Mucous membranes pink and moist. NECK: Trachea midline. No JVD. CARDIOVASCULAR: Regular rate and rhythm. RESPIRATORY: No accessory muscle use. Clear to auscultation. Breath sounds equal bilaterally. GASTROINTESTINAL: Abdomen soft, non-tender, nondistended. Hepatic and splenic margins not palpable. MUSCULOSKELETAL: Left knee with dressing in place, has a canvas splint in place. Bilateral pedal pulses 2+. NEUROLOGICAL: Awakes to voice, oriented 3. Somnolent. No focal deficits. PSYCHIATRIC: Appropriate mood and affect; insight and judgment normal. - Urinary Catheter Management Female External Cath placed during this visit: no Results - Labs CBC & Chem 7: 04/16/18 07:13 04/16/18 07:13 Laboratory Results - last 24 hr 04/15/18 04/16/18 04/16/18 18:02 07:13 07:13 WBC 5.2 RBC 2.54 L Hgb 7.9 L Hct 24.4 L MCV 96.3 MCH 31.3 MCHC 32.5 RDW 16.1 Plt Count 182 MPV 7.6 Neut % (Auto) 77.8 H Lymph % (Auto) 13.7 Wetzel % (Auto) 6.2 Eos % (Auto) 1.9 Baso % (Auto) 0.4 Neut # (Auto) 4.0 Lymph # (Auto) 0.7 L Wetzel # (Auto) 0.3 Eos # (Auto) 0.1 Baso # (Auto) 0.0 WBC Differential . Differential Comment Auto diff final PT INR APTT Sodium 144 Potassium 4.3 Chloride 115 H Carbon Dioxide 19.1 L Anion Gap 10 BUN 36 H Creatinine 2.78 H Estimated GFR 17 L POC Glucose 156 H Random Glucose 98 Calcium 8.1 L Phosphorus 3.7 Iron 29 L TIBC 273 % Saturation 10.6 L Ferritin 208 Albumin 2.2 L Complement C3 Complement C4 04/16/18 04/16/18 15:33 15:33 WBC RBC Hgb Hct MCV MCH MCHC RDW Plt Count MPV Neut % (Auto) Lymph % (Auto) Wetzel % (Auto) Eos % (Auto) Baso % (Auto) Neut # (Auto) Lymph # (Auto) Wetzel # (Auto) Eos # (Auto) Baso # (Auto) WBC Differential Differential Comment PT 16.1 H INR 1.6 APTT 43.1 H Sodium Potassium Chloride Carbon Dioxide Anion Gap BUN Creatinine Estimated GFR POC Glucose Random Glucose Calcium Phosphorus Iron TIBC % Saturation Ferritin Albumin Complement C3 167 Complement C4 39 Microbiology 04/11/18 10:00 Blood - Peripheral Aerobic Blood Culture - Final No growth in 5 days 04/11/18 10:00 Blood - Peripheral Anaerobic Blood Culture - Final No growth in 5 days 04/11/18 10:00 Blood - Peripheral Aerobic Blood Culture - Final No growth in 5 days 04/11/18 10:00 Blood - Peripheral Anaerobic Blood Culture - Final No growth in 5 days Assessment and Plan - Assessment (1) Sepsis Code(s): A41.9 - Sepsis, unspecified organism Status: Acute (2) Acute joint effusion Code(s): M25.40 - Effusion, unspecified joint Status: Acute (3) Chronic kidney disease, stage IV (severe) Code(s): N18.4 - Chronic kidney disease, stage 4 (severe) Status: Chronic (4) Essential (primary) hypertension Code(s): I10 - Essential (primary) hypertension Status: Chronic (5) Septic arthritis of knee, left Code(s): M00.9 - Pyogenic arthritis, unspecified Status: Acute (6) Anemia Code(s): D64.9 - Anemia, unspecified Status: Chronic - Plan 67-year-old female with status post bilateral knee repair last knee repair was the left knee on September 17, 2017. Presented with acute pain, unable to walk. Left septic knee joint -Status post removal of left knee prosthesis April 13 2018 -status post knee joint aspiration in ED -Currently on Ancef IV per ID, s/p vancomycin and Rocephin . -Patient will need IV antibiotic therapy for 6 weeks -Appreciate input from ID -Synovial joint culture positive for staph aureus -PT to treat and eval -Unable to have PICC secondary to renal dysfunction, nephrology recommends Carter placement. Consult IR for placement. Chronic kidney disease stage IV -Avoid nephrotoxins. -Continue to monitor creatinine. -Appreciate nephrology input, patient will be put on half normal saline with sodium bicarb. Noted acidotic today. -Patient will need outpatient follow-up with nephrology, she verbalized being surprised about CKD. We will reach out to family to make sure she follows up accordingly. Asymptomatic bacteriuria -Urine culture negative Anemia, Hgb trending, hgb 7.9 -low iron stores -repeat in AM -continue PO iron Hypertension -Lopressor 50 mg twice daily Parkinson/COPD/depression/anxiety/dyslipidemia -Continue with home medication. DVT prophylaxis -SCDs. Repeat labs in am CM for dc planning, accepted at [facility] dc in 2 days. D/W pt, RN, CM, Dr. Finch (1) Sepsis Qualifiers: Sepsis type: sepsis due to unspecified organism Qualified Code(s): A41.9 - Sepsis, unspecified organism (5) Septic arthritis of knee, left Qualifiers: Septic arthritis organism: staphylococcal Qualified Code(s): M00.062 - Staphylococcal arthritis, left knee (6) Anemia Qualifiers: Anemia type: iron deficiency
[2018-04-16 19:46] LABS: Hepatitis A IgM Antibody Nonreactive (Nonreactive); Hepatitits B Surface Antigen Nonreactive (Nonreactive)
[2018-04-16] MEDS: Fenofibrate 145 MG Tablet PO SCH (22:09)
[2018-04-16] MEDS: traZODone 100 MG Tablet PO SCH (22:10)
[2018-04-17] MEDS: ceFAZolin Inj 2,000 MG in Sodium Chlor 0.9% Inj 80 ML IV.SIG SCH ×2 (03:22→14:30)
[2018-04-17] MEDS: Sodium Bicarbonate 8.4% Inj 75 MEQ in Sodium Chloride 0.45 % Inj 925 ML IV.CONT SCH ×2 (04:59→10:03)
--- NOTE | 2018-04-17 07:49 | P.PNOP ---
Subjective Interval history: pain tolerable. Physical Exam Vital signs: Vital Signs 04/16/18 08:00 04/16/18 09:35 04/16/18 12:00 Temperature 97.8 F 97.6 F Pulse Rate 80 70 Respiratory Rate 18 18 18 Blood Pressure 150/70 H 123/58 L Pulse Oximetry 98 95 04/16/18 15:03 04/16/18 16:00 04/16/18 19:32 Temperature 97.3 F L 98.4 F Pulse Rate 72 70 76 Respiratory Rate 18 20 Blood Pressure 147/69 H 163/75 H Pulse Oximetry 99 99 04/16/18 20:00 04/17/18 00:00 04/17/18 04:00 Temperature 97.7 F 98.1 F Pulse Rate 75 75 73 Respiratory Rate 18 18 Blood Pressure 157/76 H 133/75 Pulse Oximetry 98 97 Intake & Output 04/16/18 04/17/18 04/17/18 18:59 06:59 18:59 Intake Total 1820 / 1820 1100 / 1100 Output Total 1300 / 1300 1999 Balance 520 / 520 -900 / -900 Weight 118 kg Intake: IV 1100 / 1100 1100 / 1100 NS Inj 1,000 ML @ 100 mls/hr IV 900 / 900 .CONT .Q10H TOO Rx#:[id number] Sodium Bicarbonate 8.4% Inj 75 1000 / 1000 MEQ In 1/2 Normal Saline Inj 925 ML @ 100 mls/hr IV.CONT . Q10H TOO Rx#:[id number] Ancef Inj 2,000 MG In NS Inj 80 200 / 200 100 / 100 ML @ 200 mls/hr IV.SIG Q12H TOO Rx#:[id number] Oral 720 / 720 Output: Urine 1300 / 1300 Urine Amount (Catheter) 1999 Female External 1999 Other: # Bowel Movements 0 Narrative: in bed, nad dressing LLE c/d/i neg estela nvi - Urinary Catheter Management Female External Cath placed during this visit: no Results - Labs CBC & Chem 7: 04/16/18 07:13 04/16/18 07:13 Laboratory Results - last 24 hr 04/11/18 04/11/18 04/16/18 14:05 14:05 07:13 PT INR APTT Sodium 144 Potassium 4.3 Chloride 115 H Carbon Dioxide 19.1 L Anion Gap 10 BUN 36 H Creatinine 2.78 H Estimated GFR 17 L Random Glucose 98 Calcium 8.1 L Phosphorus 3.7 Iron 29 L TIBC 273 % Saturation 10.6 L Ferritin 208 Albumin 2.2 L Urine Eosinophils Synovial Glucose 68 Synovial Total Protein 4.1 H Complement C3 Complement C4 Hepatitis A IgM Ab Hep Bs Antigen Hep B Core IgM Ab Hep C IgG Ab 04/16/18 04/16/18 04/16/18 15:33 15:33 15:33 PT 16.1 H INR 1.6 APTT 43.1 H Sodium Potassium Chloride Carbon Dioxide Anion Gap BUN Creatinine Estimated GFR Random Glucose Calcium Phosphorus Iron TIBC % Saturation Ferritin Albumin Urine Eosinophils Synovial Glucose Synovial Total Protein Complement C3 167 Complement C4 39 Hepatitis A IgM Ab Nonreactive Hep Bs Antigen Nonreactive Hep B Core IgM Ab Nonreactive Hep C IgG Ab Nonreactive 04/16/18 18:15 PT INR APTT Sodium Potassium Chloride Carbon Dioxide Anion Gap BUN Creatinine Estimated GFR Random Glucose Calcium Phosphorus Iron TIBC % Saturation Ferritin Albumin Urine Eosinophils None seen Synovial Glucose Synovial Total Protein Complement C3 Complement C4 Hepatitis A IgM Ab Hep Bs Antigen Hep B Core IgM Ab Hep C IgG Ab Microbiology 04/11/18 10:00 Blood - Peripheral Aerobic Blood Culture - Final No growth in 5 days 04/11/18 10:00 Blood - Peripheral Anaerobic Blood Culture - Final No growth in 5 days 04/11/18 10:00 Blood - Peripheral Aerobic Blood Culture - Final No growth in 5 days 04/11/18 10:00 Blood - Peripheral Anaerobic Blood Culture - Final No growth in 5 days Assessment and Plan - Ortho Post Op Day # 4 - Assessment and Plan pod 4 s/p I and D with removal of infected TKA placement of antibiotic spacer cultures JAMIA plan continue ancef per infectous disease nwb LLE daily dressing changes lovenox scd's ortho stable - cleared for d/c once arrangements are made will need pic line and director long term care iv abx per ID will need snf for discharge f/up dr. estevez 2 weeks
[2018-04-17 09:33] LABS: Baso % (Auto) 0.3 % (0.0-2.0); Eos # (Auto) 0.1 th/mm3 (0.0-0.4); Eos % (Auto) 2.5 % (0.0-4.0); Hematocrit 23.9 % (35.0-46.0); Hemoglobin 7.9 gm/dL (11.6-15.3); Lymph # (Auto) 0.8 th/mm3 (1.0-4.8); Lymph % (Auto) 17.3 % (9.0-44.0); Mean Corpuscular HGB Conc 33.2 % (32.0-36.0); Mean Corpuscular Hemoglobin 31.4 pg (27.0-34.0); Mean Corpuscular Volume 94.5 fL (80.0-100.0); Mean Platelet Volume 7.6 fL (7.0-11.0); Mono # (Auto) 0.4 th/mm3 (0.0-0.9); Mono % (Auto) 7.7 % (0.0-8.0); Neut # (Auto) 3.4 th/mm3 (1.8-7.7); Neut % (Auto) 72.2 % (16.0-70.0); Platelet Count 216 th/mm3 (150-450); Red Blood Count 2.53 mil/mm3 (4.00-5.30); Red Cell Distribution Width 16.1 % (11.6-17.2); White Blood Count 4.7 th/mm3 (4.0-11.0)
[2018-04-17 09:57] LABS: Albumin 2.3 g/dL (3.4-5.0); Calcium 8.7 mg/dL (8.5-10.1); Carbon Dioxide 20.7 meq/L (21.0-32.0)
[2018-04-17] MEDS: Gabapentin 400 MG Capsule PO SCH ×2 (09:57→22:14)
[2018-04-17] MEDS: Metoprolol Tartrate 50 MG Tablet PO SCH ×2 (09:57→22:14)
[2018-04-17] MEDS: clonazePAM 0.5 MG Tablet PO SCH ×2 (09:57→22:13)
[2018-04-17] MEDS: OXcarbazepine 600 MG Tablet PO SCH ×2 (09:57→22:14)
[2018-04-17 10:07] LABS: % Iron Saturation 12.6 % (20-50); Phosphorus 3.3 mg/dL (2.5-4.9)
[2018-04-17 10:26] LABS: Kappa Lambda Ratio 1.92 (1.57-3.93)
--- NOTE | 2018-04-17 12:28 | P.PNID ---
Subjective Remarks: is a 67-year-old female, resides in the half-way, brought into the hospital for evaluation of acute left knee pain. Patient has had prior bilateral knee replacement, and the night prior to admission she stated that she was limping. When she woke up the following day, she had noted swelling on her left knee, and severe pain that she could not walk. Normally she walks using a walker. She has not had any fever chills or sweats. Patient stated that she fell about 2 weeks ago, but did not sustain any kind of injury. She apparently also was given an antibiotic for some skin infection that she had in her arms in the least several weeks. Patient after she had her surgery on the left knee back in August 2017 had an uncomplicated course. Since admission she has had low-grade temps. Her WBC is normal. Arthrocentesis of the left knee was done and it showed leukocytosis, and it is now growing staph aureus. Infectious disease consultation has been requested to evaluate the patient. Notes reviewed Temps ok No new complaints Ortho did OR 04/13 Underwent removal of prosthesis and placement of spacer. Intraop cultures with MSSA. Pain under control renal notes reviewed No rash No diarrhea Antibiotics: Ancef Lines: lines ok Past Medical History: Anxiety COPD (chronic obstructive pulmonary disease) Chronic kidney disease (CKD) Depression HTN (hypertension) Hyperlipidemia Osteoarthritis Parkinson disease History of knee replacement Allergies/Adverse Reactions: Allergies apple Allergy (Severe, Verified 04/11/18 09:49) Nausea/Vomiting carisoprodol Allergy (Severe, Verified 04/11/18 09:49) TREMORS chlorpromazine Allergy (Severe, Verified 04/11/18 09:49) unknown diatrizoate meglumine Allergy (Severe, Verified 04/11/18 09:49) CARDIAC ARREST egg Allergy (Severe, Verified 04/11/18 09:49) Nausea/Vomiting gadobenic acid Allergy (Severe, Verified 04/11/18 09:49) CARDIAC ARREST gadodiamide Allergy (Severe, Verified 04/11/18 09:49) CARDIAC ARREST gadoteridol Allergy (Severe, Verified 04/11/18 09:49) CARDIAC ARREST haloperidol Allergy (Severe, Verified 04/11/18 09:49) Hallucinations iodine Allergy (Severe, Verified 04/11/18 09:49) CARDIAC ARREST iodixanol Allergy (Severe, Verified 04/11/18 09:49) CARDIAC ARREST iohexol Allergy (Severe, Verified 04/11/18 09:49) CARDIAC ARREST morphine Allergy (Severe, Verified 04/11/18 09:49) CARDIAC ARREST phenobarbital Allergy (Severe, Verified 04/11/18 09:49) HYPOKALEMIA potassium iodide Allergy (Severe, Verified 04/11/18 09:49) CARDIAC ARREST povidone-iodine Allergy (Severe, Verified 04/11/18 09:49) CARDIAC ARREST shrimp Allergy (Severe, Verified 04/11/18 09:49) Nausea/Vomiting sodium iodide Allergy (Severe, Verified 04/11/18 09:49) CARDIAC ARREST sodium iodide Allergy (Severe, Verified 04/11/18 09:49) CARDIAC ARREST thioridazine Allergy (Severe, Verified 04/11/18 09:49) CARDIAC ARREST walnut Allergy (Severe, Verified 04/11/18 09:49) Nausea/Vomiting lithium Allergy (Intermediate, Verified 04/11/18 09:49) EDEMA/DIARRHEA codeine Allergy (Unknown, Verified 04/11/18 09:49) Hallucinations aspirin Adverse Reaction (Severe, Verified 04/11/18 09:49) Nausea/Vomiting Penicillins Adverse Reaction (Mild, Verified 04/11/18 09:49) Nausea/Vomiting NAUSEA alcohol Adverse Reaction (Verified 04/11/18 09:49) Nausea/Vomiting Objective Vital Signs 04/16/18 15:03 04/16/18 16:00 04/16/18 19:32 Temperature 97.3 F L 98.4 F Pulse Rate 72 70 76 Respiratory Rate 18 20 Blood Pressure 147/69 H 163/75 H Pulse Oximetry 99 99 04/16/18 20:00 04/17/18 00:00 04/17/18 04:00 Temperature 97.7 F 98.1 F Pulse Rate 75 75 73 Respiratory Rate 18 18 Blood Pressure 157/76 H 133/75 Pulse Oximetry 98 97 04/17/18 08:00 Temperature 98.3 F Pulse Rate 76 Respiratory Rate 16 Blood Pressure 162/74 H Pulse Oximetry 97 Intake & Output 04/16/18 04/17/18 04/17/18 18:59 06:59 18:59 Intake Total 1820 / 1820 1100 / 1100 1000 / 1000 Output Total 1300 / 1300 2000 / 2000 Balance 520 / 520 -900 / -900 1000 / 1000 Weight 118 kg Intake: IV 1100 / 1100 1100 / 1100 1000 / 1000 NS Inj 1,000 ML @ 100 mls/hr IV 900 / 900 .CONT .Q10H TOO Rx#:[id number] Sodium Bicarbonate 8.4% Inj 75 1000 / 1000 1000 / 1000 MEQ In 1/2 Normal Saline Inj 925 ML @ 100 mls/hr IV.CONT . Q10H TOO Rx#:[id number] Ancef Inj 2,000 MG In NS Inj 80 200 / 200 100 / 100 ML @ 200 mls/hr IV.SIG Q12H TOO Rx#:[id number] Oral 720 / 720 Output: Urine 1300 / 1300 Urine Amount (Catheter) 1999 Female External 1999 Other: # Bowel Movements 0 04/11/18 10:00 Blood - Peripheral Aerobic Blood Culture - Final No growth in 5 days 04/11/18 10:00 Blood - Peripheral Anaerobic Blood Culture - Final No growth in 5 days 04/11/18 10:00 Blood - Peripheral Aerobic Blood Culture - Final No growth in 5 days 04/11/18 10:00 Blood - Peripheral Anaerobic Blood Culture - Final No growth in 5 days 04/13/18 10:10 Wound - Knee Gram Stain - Final 04/13/18 10:10 Wound - Knee Wound Culture - Final Staphylococcus aureus 04/13/18 10:10 Wound - Knee Acid Fast Bacilli Smear - Final No acid fast bacilli seen 04/13/18 10:10 Wound - Knee Mycobacterial Culture - Pending 04/13/18 10:10 Wound - Knee Fungal Smear - Final No fungal elements seen 04/13/18 10:10 Wound - Knee Fungal Culture - Pending Lab - Hematology Results 04/16/18 04/17/18 07:13 08:37 WBC 5.2 4.7 RBC 2.54 L 2.53 L Hgb 7.9 L 7.9 L Hct 24.4 L 23.9 L MCV 96.3 94.5 MCH 31.3 31.4 MCHC 32.5 33.2 RDW 16.1 16.1 Plt Count 182 216 MPV 7.6 7.6 Neut % (Auto) 77.8 H 72.2 H Lymph % (Auto) 13.7 17.3 [place] % (Auto) 6.2 7.7 Eos % (Auto) 1.9 2.5 Baso % (Auto) 0.4 0.3 Neut # (Auto) 4.0 3.4 Lymph # (Auto) 0.7 L 0.8 L [place] # (Auto) 0.3 0.4 Eos # (Auto) 0.1 0.1 Baso # (Auto) 0.0 0.0 WBC Differential . . Differential Comment Auto diff final Auto diff final Lab - Chemistry Results 04/15/18 04/16/18 04/17/18 18:02 07:13 08:37 Sodium 144 146 H Potassium 4.3 4.0 Chloride 115 H 114 H Carbon Dioxide 19.1 L 20.7 L Anion Gap 10 11 BUN 36 H 37 H Creatinine 2.78 H 2.55 H Estimated GFR 17 L 19 L POC Glucose 156 H Random Glucose 98 97 Calcium 8.1 L 8.7 Phosphorus 3.7 3.3 Iron 29 L 35 L TIBC 273 279 % Saturation 10.6 L 12.6 L Ferritin 208 187 Total Protein (PEP) 6.7 Albumin 2.2 L 2.3 L Imaging: ITS Impressions Chest X-Ray 04/11/18 09:40 CONCLUSION: Negative examination. Knee X-Ray 04/13/18 12:21 CONCLUSION: Postoperative findings indicating revision of previously seen total knee prosthesis. Physical Exam: GENERAL: Well-nourished well-developed, NAD SKIN: Cool and dry, no generalized rash HEAD: Atraumatic. Normocephalic. No temporal or scalp tenderness. EYES: Pupils equal round and reactive. Scleral icterus. No injection or drainage. No petechia ENT: Moist mucosa NECK: Trachea midline. Supple, nontender, no meningeal signs. CARDIOVASCULAR: HS audible. RESPIRATORY: Clear to auscultation bilaterally. GASTROINTESTINAL: Abdomen soft nontender. MUSCULOSKELETAL: LLE - has immobilizer, incision with dry intact dressing NEUROLOGICAL: Alert oriented 3. Nonfocal. Psych cooperative IV line sites ok. Assessment and Plan - Plan Impression Septic L knee, S/P LTKA, C/S MSSA. - S/P removal of prosthesis and placement of abx spacer Prosthetic knee joint infection, S/P removal of hardware Hx Parkinson's COPD Chronic kidney disease Morbid obesity BMI 38.6 kg/m Recommendation Continue Ancef IV Plan 6 weeks IV Abx Labs weekly while on Abx: CBC, creat Carter cath ok by renal Monitor progress Should be able to D/C once arrangements made for her IV Abx
[2018-04-17] MEDS: guaiFENesin 600 MG ER Tablet PO SCH (13:05)
[2018-04-17] MEDS ORDERED: Lidocaine 1%/Epinephrine 1:100,000 Inj 20 ML Vial ONE (14:41)
[2018-04-17] MEDS ORDERED: Heparin Central Flush 100 UNIT/ML 5 ML Vial IV.FLUSH ONE (14:41)
[2018-04-17] MEDS ORDERED: fentaNYL Citrate Inj 100 MCG/2 ML Ampul ONE ×2 (14:45)
[2018-04-17] MEDS ORDERED: Heparin Central Flush 100 UNIT/ML 5 ML Vial IV.FLUSH PRN (15:39)
--- NOTE | 2018-04-17 16:00 | IR ---
EXAM DATE: 04/17/2018 3:47 PM EDT AGE/SEX: 67 years / Female INDICATIONS: Patient with left septic prosthetic knee joint in need of Carter catheter placement fo r antibiotics. CLINICAL DATA: This is the patient's initial encounter. Patient reports that signs and symptoms have been present for 1 week and indicates a pain score of 7/10. MEDICAL/SURGICAL HISTORY: COPD, Parkinson's disease, HLD, HTN, Osteoarthritis Bilateral knee replacem ent COMPARISON: No prior exams available for comparison. FLUORO TIME (min): 0.48 IMAGE SERIES: 1 SEDATION TIME (min): 30 MEDICATION(S): 0.5mg lorazepam (Ativan) IV 50mcg fentanyl (Sublimaze) IV Prophylactic antibiotics were administered with appropriate pre-procedure timing. Vancomycin within 2 hrs of procedure, Ancef (or alternative) within 1 hr of procedure. DEVICE(S): Right 6.6F Broviac Single-lumen Carter . . PROCEDURE: 1. Ultrasound-guided puncture of the prescribed vein. 2. Fluoroscopic guidance. 3. Carter catheter placement 4. Conscious sedation with continuous EKG and oximetry monitoring. The risks, benefits and alternatives to the procedure were explained and verbal and written consent w as obtained. The site was prepped in sterile fashion. Full sterile technique was used, including ca p, mask, sterile gloves and gown and a large sterile sheet. Hand hygiene and 2% chlorhexidine Betadi ne was utilized per protocol for cutaneous antisepsis with appropriate dry time for site. Sterile ge l and sterile probe cover were utilized for ultrasound guidance. The skin and subcutaneous tissues w ere infiltrated with local anesthetic solution. With ultrasound and fluoroscopic guidance a dermatotomy was created in the supraclavicular region. A micropuncture set was used to access to the prescribed vein and serial dilatation was performed to a ccept a Carter catheter. A subcutaneous tunnel was created and in antegrade fashion the catheter wa s pulled through the tunnel, cut to the appropriate length and place through the sheath. The cathete r was locked with heparin and sutured in place. Conscious sedation was performed with the prescribed dosages and duration as above in the presence of an independent trained radiology nurse to assist in the monitoring of the patient. EKG and oximetry remained stable throughout the procedure. The patient tolerated the procedure well and there were no complications. The patient was sent to post anesthesia recovery in stable condition. CONCLUSION: Uncomplicated Carter catheter placement as above. Electronically signed by: Mendez Kennedy MD 04/17/2018 3:58 PM EDT
--- NOTE | 2018-04-17 16:29 | P.PN ---
Subjective Interval history: more awake today, oriented x 3. Has neuropathic pain, doesn't like her feet touched. No cp, no sob. Asking about dc plans to SNF. Asked about renal dysfunction. She was surprised to learn that her kidney function is declining and she may need dialysis. States that prior to coming to hospital she was living at assisted living facility, she has a daughter who lives out of state. I emphasized the need to follow-up with nephrology as outpatient, patient is agreeable and expresses concern. Physical Exam Vital signs: Vital Signs 04/16/18 19:32 04/16/18 20:00 04/17/18 00:00 Temperature 98.4 F 97.7 F Pulse Rate 76 75 75 Respiratory Rate 20 18 Blood Pressure 163/75 H 157/76 H Pulse Oximetry 99 98 04/17/18 04:00 04/17/18 08:00 Temperature 98.1 F 98.3 F Pulse Rate 73 76 Respiratory Rate 18 16 Blood Pressure 133/75 162/74 H Pulse Oximetry 97 97 Intake & Output 04/16/18 04/17/18 04/17/18 18:59 06:59 18:59 Intake Total 1820 / 1820 1100 / 1100 1000 / 1000 Output Total 1300 / 1300 1999 Balance 520 / 520 -900 / -900 1000 / 1000 Weight 118 kg Intake: IV 1100 / 1100 1100 / 1100 1000 / 1000 NS Inj 1,000 ML @ 100 mls/hr IV 900 / 900 .CONT .Q10H TOO Rx#:[id number] Sodium Bicarbonate 8.4% Inj 75 1000 / 1000 1000 / 1000 MEQ In 1/2 Normal Saline Inj 925 ML @ 100 mls/hr IV.CONT . Q10H TOO Rx#:[id number] Ancef Inj 2,000 MG In NS Inj 80 200 / 200 100 / 100 ML @ 200 mls/hr IV.SIG Q12H OTO Rx#:[id number] Oral 720 / 720 Output: Urine 1300 / 1300 Urine Amount (Catheter) 1999 Female External 1999 Other: # Bowel Movements 0 Narrative: GENERAL: Well-nourished, well-developed patient in no apparent distress. SKIN: Warm and dry. HEAD: Atraumatic. Normocephalic. EYES: Pupils equal and round. No scleral icterus. No injection or drainage. ENT: No nasal bleeding or discharge. Mucous membranes pink and moist. NECK: Trachea midline. No JVD. CARDIOVASCULAR: Regular rate and rhythm. RESPIRATORY: No accessory muscle use. Clear to auscultation. Breath sounds equal bilaterally. GASTROINTESTINAL: Abdomen soft, non-tender, nondistended. Hepatic and splenic margins not palpable. MUSCULOSKELETAL: Extremities without clubbing, cyanosis, or edema. No obvious deformities. NEUROLOGICAL: Awake and alert oriented 3.. No obvious cranial nerve deficits. Limited mobility to the left lower extremity. Has a canvas splint in place, dressing over left knee, dry and intact. Bilateral pedal pulses 2+, trace pedal edema. PSYCHIATRIC: Appropriate mood and affect; insight and judgment normal. - Urinary Catheter Management Female External Cath placed during this visit: no Results - Labs CBC & Chem 7: 04/17/18 08:37 04/17/18 08:37 Laboratory Results - last 24 hr 04/11/18 04/11/18 04/16/18 14:05 14:05 15:33 WBC RBC Hgb Hct MCV MCH MCHC RDW Plt Count MPV Neut % (Auto) Lymph % (Auto) [place] % (Auto) Eos % (Auto) Baso % (Auto) Neut # (Auto) Lymph # (Auto) Jack # (Auto) Eos # (Auto) Baso # (Auto) WBC Differential Differential Comment PT INR APTT Sodium Potassium Chloride Carbon Dioxide Anion Gap BUN Creatinine Estimated GFR Random Glucose Calcium Phosphorus Iron TIBC % Saturation Ferritin Total Protein (PEP) Albumin PTH Intact Urine Eosinophils Synovial Glucose 68 Synovial Total Protein 4.1 H IgG IgA IgM [place]/Lambda Ratio Complement C3 167 Complement C4 39 [place] Light Chain Anal Lambda Light Chain Anal Hepatitis A IgM Ab Hep Bs Antigen Hep B Core IgM Ab Hep C IgG Ab 04/16/18 04/16/18 04/16/18 15:33 15:33 18:15 WBC RBC Hgb Hct MCV MCH MCHC RDW Plt Count MPV Neut % (Auto) Lymph % (Auto) Jack % (Auto) Eos % (Auto) Baso % (Auto) Neut # (Auto) Lymph # (Auto) Jack # (Auto) Eos # (Auto) Baso # (Auto) WBC Differential Differential Comment PT 16.1 H INR 1.6 APTT 43.1 H Sodium Potassium Chloride Carbon Dioxide Anion Gap BUN Creatinine Estimated GFR Random Glucose Calcium Phosphorus Iron TIBC % Saturation Ferritin Total Protein (PEP) Albumin PTH Intact Urine Eosinophils None seen Synovial Glucose Synovial Total Protein IgG IgA IgM [place]/Lambda Ratio Complement C3 Complement C4 [place] Light Chain Anal Lambda Light Chain Anal Hepatitis A IgM Ab Nonreactive Hep Bs Antigen Nonreactive Hep B Core IgM Ab Nonreactive Hep C IgG Ab Nonreactive 04/17/18 04/17/18 04/17/18 08:37 08:37 08:37 WBC 4.7 RBC 2.53 L Hgb 7.9 L Hct 23.9 L MCV 94.5 MCH 31.4 MCHC 33.2 RDW 16.1 Plt Count 216 MPV 7.6 Neut % (Auto) 72.2 H Lymph % (Auto) 17.3 [place] % (Auto) 7.7 Eos % (Auto) 2.5 Baso % (Auto) 0.3 Neut # (Auto) 3.4 Lymph # (Auto) 0.8 L [place] # (Auto) 0.4 Eos # (Auto) 0.1 Baso # (Auto) 0.0 WBC Differential . Differential Comment Auto diff final PT INR APTT Sodium 146 H Potassium 4.0 Chloride 114 H Carbon Dioxide 20.7 L Anion Gap 11 BUN 37 H Creatinine 2.55 H Estimated GFR 19 L Random Glucose 97 Calcium 8.7 Phosphorus 3.3 Iron 35 L TIBC 279 % Saturation 12.6 L Ferritin 187 Total Protein (PEP) 6.7 Albumin 2.3 L PTH Intact 108.0 H Urine Eosinophils Synovial Glucose Synovial Total Protein IgG 986 IgA 178 IgM 203 [place]/Lambda Ratio 1.92 Complement C3 Complement C4 [place] Light Chain Anal 250 [place] Light Chain Anal 130 Hepatitis A IgM Ab Hep Bs Antigen Hep B Core IgM Ab Hep C IgG Ab - Imaging Impressions Carter Line Insertion 04/17/18 00:00 CONCLUSION: Uncomplicated Carter catheter placement as above. Assessment and Plan - Assessment (1) Sepsis Code(s): A41.9 - Sepsis, unspecified organism Status: Acute (2) Acute joint effusion Code(s): M25.40 - Effusion, unspecified joint Status: Acute (3) Chronic kidney disease, stage IV (severe) Code(s): N18.4 - Chronic kidney disease, stage 4 (severe) Status: Chronic (4) Essential (primary) hypertension Code(s): I10 - Essential (primary) hypertension Status: Chronic (5) Septic arthritis of knee, left Code(s): M00.9 - Pyogenic arthritis, unspecified Status: Acute (6) Anemia Code(s): D64.9 - Anemia, unspecified Status: Chronic - Plan 67-year-old female with status post bilateral knee repair last knee repair was the left knee on September 17, 2017. Presented with acute pain, unable to walk. Left septic knee joint -Status post removal of left knee prosthesis April 13 2018 -status post knee joint aspiration in ED -Currently on Ancef IV per ID, s/p vancomycin and Rocephin . -Patient will need IV antibiotic therapy for 6 weeks -Appreciate input from ID -Synovial joint culture positive for staph aureus -PT to treat and eval -Unable to have PICC secondary to renal dysfunction, nephrology recommends Carter placement. -IR to Place Carter catheter today Chronic kidney disease stage IV -Avoid nephrotoxins. -Continue to monitor creatinine. -Improved today. -Appreciate nephrology input, patient will be put on half normal saline with sodium bicarb. CO2 improved today. -Patient will need outpatient follow-up with nephrology, she verbalized being surprised about CKD. Patient has no family close by, patient today more awake and alert. Discussed in detail about her renal dysfunction and the need to follow-up with nephrology as outpatient. She verbalizes understanding. Follow- up instructions have been included in [id number]. Asymptomatic bacteriuria -Urine culture negative Anemia, Hgb trending, hgb 7.9 -low iron stores -Hemoglobin unchanged. -continue PO iron Hypertension -Lopressor 50 mg twice daily Parkinson/COPD/depression/anxiety/dyslipidemia -Continue with home medication. DVT prophylaxis -SCDs. Repeat labs in am CM for dc planning, accepted at [facility] Plan to discharge tomorrow (1) Sepsis Qualifiers: Sepsis type: sepsis due to unspecified organism Qualified Code(s): A41.9 - Sepsis, unspecified organism (5) Septic arthritis of knee, left Qualifiers: Septic arthritis organism: staphylococcal Qualified Code(s): M00.062 - Staphylococcal arthritis, left knee (6) Anemia Qualifiers: Anemia type: iron deficiency
--- NOTE | 2018-04-17 19:52 | P.PNNP ---
Subjective Interval history: Patient lying comfortably in bed. No verbal complaints. Physical Exam Vital signs: Vital Signs 04/16/18 20:00 04/17/18 00:00 04/17/18 04:00 Temperature 97.7 F 98.1 F Pulse Rate 75 75 73 Respiratory Rate 18 18 Blood Pressure 157/76 H 133/75 Pulse Oximetry 98 97 04/17/18 08:00 04/17/18 12:00 04/17/18 18:00 Temperature 98.3 F 98.4 F 98.1 F Pulse Rate 76 76 74 Respiratory Rate 16 16 16 Blood Pressure 162/74 H 158/70 H 148/68 H Pulse Oximetry 97 17 L 98 04/17/18 19:31 Temperature 98.0 F Pulse Rate 77 Respiratory Rate 20 Blood Pressure 184/83 H Pulse Oximetry 99 Intake & Output 04/17/18 04/17/18 04/18/18 06:59 18:59 06:59 Intake Total 1100 / 1100 1000 / 1000 Output Total 1999 Balance -900 / -900 1000 / 1000 Weight 118 kg Intake: IV 1100 / 1100 1000 / 1000 Sodium Bicarbonate 8.4% Inj 75 1000 / 1000 1000 / 1000 MEQ In 1/2 Normal Saline Inj 925 ML @ 100 mls/hr IV.CONT . Q10H TOO Rx#:[id number] Ancef Inj 2,000 MG In NS Inj 80 100 / 100 ML @ 200 mls/hr IV.SIG Q12H TOO Rx#:[id number] Output: Urine Amount (Catheter) 1999 Female External 1999 Other: # Voids 4 # Bowel Movements 1 Narrative: GENERAL: Well-nourished, well-developed patient in no apparent distress. SKIN: Warm and dry. HEAD: Atraumatic. Normocephalic. NECK: Trachea midline. No JVD. CARDIOVASCULAR: Regular rate and rhythm. RESPIRATORY: No accessory muscle use. Clear to auscultation. Breath sounds equal bilaterally. GASTROINTESTINAL: Abdomen soft, non-tender, nondistended. MUSCULOSKELETAL: Extremities without clubbing, cyanosis, trace edema ankles. No obvious deformities. - Urinary Catheter Management Female External Cath placed during this visit: no Assessment and Plan - Assessment (1) Chronic kidney disease, stage IV (severe) Code(s): N18.4 - Chronic kidney disease, stage 4 (severe) Status: Chronic Plan: Discontinue IV fluids at this point in time. Encourage p.o. fluid intake. Sodium bicarbonate p.o. which should be continued as an outpatient for chronic metabolic acidosis associated with her CKD. Avoid nephrotoxic medications such as iodinated contrast dyes and NSAIDs. Avoid gadolinium. Did advise the patient that it would be within her best interest to establish and follow with an outpatient second chef regularly. (2) Essential (primary) hypertension Code(s): I10 - Essential (primary) hypertension Status: Chronic (3) Septic arthritis of knee, left Code(s): M00.9 - Pyogenic arthritis, unspecified Status: Acute Qualifiers: Septic arthritis organism: staphylococcal Qualified Code(s): M00.062 - Staphylococcal arthritis, left knee (4) Anemia Code(s): D64.9 - Anemia, unspecified Status: Chronic Qualifiers: Anemia type: iron deficiency Plan: Hgb dropped with low Fe stores. Start po Ferrous Fumarate. Will defer to primary if further eval necessary.
[2018-04-17] MEDS: traZODone 100 MG Tablet PO SCH (22:13)
[2018-04-17] MEDS: Fenofibrate 145 MG Tablet PO SCH (22:14)
[2018-04-17] MEDS: Sodium Bicarbonate 650 MG Tablet PO SCH (22:14)
[2018-04-18] MEDS: guaiFENesin 600 MG ER Tablet PO SCH ×3 (00:41→22:29)
[2018-04-18] MEDS: ceFAZolin Inj 2,000 MG in Sodium Chlor 0.9% Inj 80 ML IV.SIG SCH ×2 (04:26→15:44)
[2018-04-18 05:25] LABS: Calcium 8.5 mg/dL (8.5-10.1); Carbon Dioxide 24.8 meq/L (21.0-32.0); Potassium 4.1 meq/L (3.5-5.1)
--- NOTE | 2018-04-18 07:49 | P.PNOP ---
Subjective Interval history: pain controlled. Physical Exam Vital signs: Vital Signs 04/17/18 08:00 04/17/18 12:00 04/17/18 18:00 Temperature 98.3 F 98.4 F 98.1 F Pulse Rate 76 76 74 Respiratory Rate 16 16 16 Blood Pressure 162/74 H 158/70 H 148/68 H Pulse Oximetry 97 17 L 98 04/17/18 19:31 04/17/18 20:00 04/18/18 00:00 Temperature 98.0 F 97.7 F Pulse Rate 77 72 75 Respiratory Rate 20 18 Blood Pressure 184/83 H 116/66 Pulse Oximetry 99 98 04/18/18 04:00 Temperature 98.3 F Pulse Rate 77 Respiratory Rate 20 Blood Pressure 121/61 Pulse Oximetry 100 Intake & Output 04/17/18 04/18/18 04/18/18 18:59 06:59 18:59 Intake Total 1100 / 1100 1580 / 1580 Output Total 2200 / 2200 Balance 1100 / 1100 -620 / -620 Weight 115.5 kg Intake: IV 1100 / 1100 1100 / 1100 Sodium Bicarbonate 8.4% Inj 75 1000 / 1000 1000 / 1000 MEQ In 1/2 Normal Saline Inj 925 ML @ 100 mls/hr IV.CONT . Q10H TOO Rx#:[id number] Ancef Inj 2,000 MG In NS Inj 80 100 / 100 100 / 100 ML @ 200 mls/hr IV.SIG Q12H TOO Rx#:[id number] Oral 480 / 480 Output: Urine 2200 / 2200 Other: # Voids 4 # Bowel Movements 1 0 Narrative: in bed, nad, resting dressing c/d/i neg homans nvi - Constitutional no acute distress - Urinary Catheter Management Female External Cath placed during this visit: no Results - Labs CBC & Chem 7: 04/17/18 08:37 04/18/18 04:25 Laboratory Results - last 24 hr 04/17/18 04/17/18 04/17/18 08:37 08:37 08:37 WBC 4.7 RBC 2.53 L Hgb 7.9 L Hct 23.9 L MCV 94.5 MCH 31.4 MCHC 33.2 RDW 16.1 Plt Count 216 MPV 7.6 Neut % (Auto) 72.2 H Lymph % (Auto) 17.3 [place] % (Auto) 7.7 Eos % (Auto) 2.5 Baso % (Auto) 0.3 Neut # (Auto) 3.4 Lymph # (Auto) 0.8 L [place] # (Auto) 0.4 Eos # (Auto) 0.1 Baso # (Auto) 0.0 WBC Differential . Differential Comment Auto diff final Sodium 146 H Potassium 4.0 Chloride 114 H Carbon Dioxide 20.7 L Anion Gap 11 BUN 37 H Creatinine 2.55 H Estimated GFR 19 L Random Glucose 97 Calcium 8.7 Phosphorus 3.3 Iron 35 L TIBC 279 % Saturation 12.6 L Ferritin 187 Total Protein (PEP) 6.7 Albumin 2.3 L PTH Intact 108.0 H IgG 986 IgA 178 IgM 203 Solana/Lambda Ratio 1.92 Solana Light Chain Anal 250 Lambda Light Chain Anal 130 04/18/18 04:25 WBC RBC Hgb Hct MCV MCH MCHC RDW Plt Count MPV Neut % (Auto) Lymph % (Auto) [place] % (Auto) Eos % (Auto) Baso % (Auto) Neut # (Auto) Lymph # (Auto) [place] # (Auto) Eos # (Auto) Baso # (Auto) WBC Differential Differential Comment Sodium 148 H Potassium 4.1 Chloride 115 H Carbon Dioxide 24.8 Anion Gap 8 BUN 36 H Creatinine 2.43 H Estimated GFR 20 L Random Glucose 104 Calcium 8.5 Phosphorus Iron TIBC % Saturation Ferritin Total Protein (PEP) Albumin PTH Intact IgG IgA IgM [place]ana/Lambda Ratio Solana Light Chain Anal Lambda Light Chain Anal - Imaging Impressions Jolly Line Insertion 04/17/18 00:00 CONCLUSION: Uncomplicated Jolly catheter placement as above. Assessment and Plan - Ortho Post Op Day # 5 - Assessment and Plan pod 5 s/p I and D with removal of infected TKA placement of antibiotic spacer cultures JAMIA plan continue ancef per infectous disease nwb LLE daily dressing changes lovenox scd's ortho stable - cleared for d/c once arrangements are made jolly catheter placed for fpc iv abx per ID will need snf for discharge f/up dr. estevez 2 weeks
--- NOTE | 2018-04-18 07:56 | P.DCO ---
Post Hospital Infusion Therapy Location of Infusion Therapy: [facility] Infusion Therapy Order Patient Weight: 115.5 kg - Diagnosis (1) Infected prosthetic knee joint Code(s): T84.59XA - Infection and inflammatory reaction due to other internal joint prosthesis, initial encounter; Z96.659 - Presence of unspecified artificial knee joint - Administer Medication Cefazolin Dose: 2 grams IV Directions: q 12 hours Stop Treatment: 05/22/18 - Additional Information Venous Access: Tunneled Catheter (Carter cath) Additional Instructions: [x] Peripheral flush and dressing changes per protocol [x] Implanted port and central drop wire aliner: * Implanted port: 10 ml Normal Saline followed by 5 ml Heparin 100 units/ml Heparin flush after each use and monthly to maintain. [] May leave port accessed during therapy. [] May leave peripheral site accessed for duration of therapy. [x] If patient has SOB or respiratory distress, check oxygen saturation. If less than 90% or clinical signs of respiratory distress, administer oxygen at 2 L/min. via nasal cannula and notify physician. [x] Anaphylaxis/Reaction orders: * Stop infusion. * Keep IV line open with saline flush. * Notify physician. * Monitor vital signs every 15 minutes until symptoms resolve. * Check Oxygen saturation; Oxygen at 2 L/min. via nasal cannula if less than 90% or clinical signs of respiratory distress. * Administer diphenhydramine (Benadryl) 25 mg IV STAT, (unless patient has received as pre-med). May repeat once, if necessary. * Solu-Cortef 250 mg IVP over 30-60 seconds, use 100 mg vials for each dissolution. * Epinephrine (1mg/1 ml) 0.3 mg subcutaneously or IVP now with any signs of respiratory distress. * Check with physician for new additional pre-med orders if patient is re- challenged or re-treated. [] May remove PICC line when treatment complete, after confirming with Physician. [x] If the patient is admitted to the hospital, the ED, or transferred via [facility] , complete transfer form including medication reconciliation order sheet. Schedule removal of Carter cath with [employer] [facility] Radiology Departrment special procedures after IV antibiotics completed Weekly Labs: CBC w/diff, Creatinine Case Management Consult: No Additional Information: Copy of blood work to de Fax [phone] Allergies apple Allergy (Severe, Verified 04/11/18 09:49) Nausea/Vomiting carisoprodol Allergy (Severe, Verified 04/11/18 09:49) TREMORS chlorpromazine Allergy (Severe, Verified 04/11/18 09:49) unknown diatrizoate meglumine Allergy (Severe, Verified 04/11/18 09:49) CARDIAC ARREST egg Allergy (Severe, Verified 04/11/18 09:49) Nausea/Vomiting gadobenic acid Allergy (Severe, Verified 04/11/18 09:49) CARDIAC ARREST gadodiamide Allergy (Severe, Verified 04/11/18 09:49) CARDIAC ARREST gadoteridol Allergy (Severe, Verified 04/11/18 09:49) CARDIAC ARREST haloperidol Allergy (Severe, Verified 04/11/18 09:49) Hallucinations iodine Allergy (Severe, Verified 04/11/18 09:49) CARDIAC ARREST iodixanol Allergy (Severe, Verified 04/11/18 09:49) CARDIAC ARREST iohexol Allergy (Severe, Verified 04/11/18 09:49) CARDIAC ARREST morphine Allergy (Severe, Verified 04/11/18 09:49) CARDIAC ARREST phenobarbital Allergy (Severe, Verified 04/11/18 09:49) HYPOKALEMIA potassium iodide Allergy (Severe, Verified 04/11/18 09:49) CARDIAC ARREST povidone-iodine Allergy (Severe, Verified 04/11/18 09:49) CARDIAC ARREST shrimp Allergy (Severe, Verified 04/11/18 09:49) Nausea/Vomiting sodium iodide Allergy (Severe, Verified 04/11/18 09:49) CARDIAC ARREST sodium iodide Allergy (Severe, Verified 04/11/18 09:49) CARDIAC ARREST thioridazine Allergy (Severe, Verified 04/11/18 09:49) CARDIAC ARREST walnut Allergy (Severe, Verified 04/11/18 09:49) Nausea/Vomiting lithium Allergy (Intermediate, Verified 04/11/18 09:49) EDEMA/DIARRHEA codeine Allergy (Unknown, Verified 04/11/18 09:49) Hallucinations aspirin Adverse Reaction (Severe, Verified 04/11/18 09:49) Nausea/Vomiting Penicillins Adverse Reaction (Mild, Verified 04/11/18 09:49) Nausea/Vomiting NAUSEA alcohol Adverse Reaction (Verified 04/11/18 09:49) Nausea/Vomiting
--- NOTE | 2018-04-18 08:01 | P.PNID ---
Subjective Remarks: is a 67-year-old female[facility], brought into the hospital for evaluation of acute left knee pain. Patient has had prior bilateral knee replacement, and the night prior to admission she stated that she was limping. When she woke up the following day, she had noted swelling on her left knee, and severe pain that she could not walk. Normally she walks using a walker. She has not had any fever chills or sweats. Patient stated that she fell about 2 weeks ago, but did not sustain any kind of injury. She apparently also was given an antibiotic for some skin infection that she had in her arms in the least several weeks. Patient after she had her surgery on the left knee back in August 2017 had an uncomplicated course. Since admission she has had low-grade temps. Her WBC is normal. Arthrocentesis of the left knee was done and it showed leukocytosis, and it is now growing staph aureus. Infectious disease consultation has been requested to evaluate the patient. Notes reviewed Temps ok No new complaints Carter cath in place Has been accepted at [facility] Ortho did OR 04/13 Underwent removal of prosthesis and placement of spacer. Intraop cultures with MSSA. No rash No diarrhea Antibiotics: Ancef Lines: lines ok Past Medical History: Anxiety COPD (chronic obstructive pulmonary disease) Chronic kidney disease (CKD) Depression HTN (hypertension) Hyperlipidemia Osteoarthritis Parkinson disease History of knee replacement Allergies/Adverse Reactions: Allergies apple Allergy (Severe, Verified 04/11/18 09:49) Nausea/Vomiting carisoprodol Allergy (Severe, Verified 04/11/18 09:49) TREMORS chlorpromazine Allergy (Severe, Verified 04/11/18 09:49) unknown diatrizoate meglumine Allergy (Severe, Verified 04/11/18 09:49) CARDIAC ARREST egg Allergy (Severe, Verified 04/11/18 09:49) Nausea/Vomiting gadobenic acid Allergy (Severe, Verified 04/11/18 09:49) CARDIAC ARREST gadodiamide Allergy (Severe, Verified 04/11/18 09:49) CARDIAC ARREST gadoteridol Allergy (Severe, Verified 04/11/18 09:49) CARDIAC ARREST haloperidol Allergy (Severe, Verified 04/11/18 09:49) Hallucinations iodine Allergy (Severe, Verified 04/11/18 09:49) CARDIAC ARREST iodixanol Allergy (Severe, Verified 04/11/18 09:49) CARDIAC ARREST iohexol Allergy (Severe, Verified 04/11/18 09:49) CARDIAC ARREST morphine Allergy (Severe, Verified 04/11/18 09:49) CARDIAC ARREST phenobarbital Allergy (Severe, Verified 04/11/18 09:49) HYPOKALEMIA potassium iodide Allergy (Severe, Verified 04/11/18 09:49) CARDIAC ARREST povidone-iodine Allergy (Severe, Verified 04/11/18 09:49) CARDIAC ARREST shrimp Allergy (Severe, Verified 04/11/18 09:49) Nausea/Vomiting sodium iodide Allergy (Severe, Verified 04/11/18 09:49) CARDIAC ARREST sodium iodide Allergy (Severe, Verified 04/11/18 09:49) CARDIAC ARREST thioridazine Allergy (Severe, Verified 04/11/18 09:49) CARDIAC ARREST walnut Allergy (Severe, Verified 04/11/18 09:49) Nausea/Vomiting lithium Allergy (Intermediate, Verified 04/11/18 09:49) EDEMA/DIARRHEA codeine Allergy (Unknown, Verified 04/11/18 09:49) Hallucinations aspirin Adverse Reaction (Severe, Verified 04/11/18 09:49) Nausea/Vomiting Penicillins Adverse Reaction (Mild, Verified 04/11/18 09:49) Nausea/Vomiting NAUSEA alcohol Adverse Reaction (Verified 04/11/18 09:49) Nausea/Vomiting Objective Vital Signs 04/17/18 08:00 04/17/18 12:00 04/17/18 18:00 Temperature 98.3 F 98.4 F 98.1 F Pulse Rate 76 76 74 Respiratory Rate 16 16 16 Blood Pressure 162/74 H 158/70 H 148/68 H Pulse Oximetry 97 17 L 98 04/17/18 19:31 04/17/18 20:00 04/18/18 00:00 Temperature 98.0 F 97.7 F Pulse Rate 77 72 75 Respiratory Rate 20 18 Blood Pressure 184/83 H 116/66 Pulse Oximetry 99 98 04/18/18 04:00 Temperature 98.3 F Pulse Rate 77 Respiratory Rate 20 Blood Pressure 121/61 Pulse Oximetry 100 Intake & Output 04/17/18 04/18/18 04/18/18 18:59 06:59 18:59 Intake Total 1100 / 1100 1580 / 1580 Output Total 2200 / 2200 Balance 1100 / 1100 -620 / -620 Weight 115.5 kg 115.5 kg Intake: IV 1100 / 1100 1100 / 1100 Sodium Bicarbonate 8.4% Inj 75 1000 / 1000 1000 / 1000 MEQ In 1/2 Normal Saline Inj 925 ML @ 100 mls/hr IV.CONT . Q10H TOO Rx#:[id number] Ancef Inj 2,000 MG In NS Inj 80 100 / 100 100 / 100 ML @ 200 mls/hr IV.SIG Q12H TOO Rx#:[id number] Oral 480 / 480 Output: Urine 2200 / 2200 Other: # Voids 4 # Bowel Movements 1 0 04/11/18 10:00 Blood - Peripheral Aerobic Blood Culture - Final No growth in 5 days 04/11/18 10:00 Blood - Peripheral Anaerobic Blood Culture - Final No growth in 5 days 04/11/18 10:00 Blood - Peripheral Aerobic Blood Culture - Final No growth in 5 days 04/11/18 10:00 Blood - Peripheral Anaerobic Blood Culture - Final No growth in 5 days 04/13/18 10:10 Wound - Knee Gram Stain - Final 04/13/18 10:10 Wound - Knee Wound Culture - Final Staphylococcus aureus Lab - Hematology Results 04/17/18 08:37 WBC 4.7 RBC 2.53 L Hgb 7.9 L Hct 23.9 L MCV 94.5 MCH 31.4 MCHC 33.2 RDW 16.1 Plt Count 216 MPV 7.6 Neut % (Auto) 72.2 H Lymph % (Auto) 17.3 [place] % (Auto) 7.7 Eos % (Auto) 2.5 Baso % (Auto) 0.3 Neut # (Auto) 3.4 Lymph # (Auto) 0.8 L [place] # (Auto) 0.4 Eos # (Auto) 0.1 Baso # (Auto) 0.0 WBC Differential . Differential Comment Auto diff final Lab - Chemistry Results 04/16/18 04/17/18 04/17/18 07:13 08:37 08:37 Sodium 144 146 H Potassium 4.3 4.0 Chloride 115 H 114 H Carbon Dioxide 19.1 L 20.7 L Anion Gap 10 11 BUN 36 H 37 H Creatinine 2.78 H 2.55 H Estimated GFR 17 L 19 L Random Glucose 98 97 Calcium 8.1 L 8.7 Phosphorus 3.7 3.3 Iron 29 L 35 L TIBC 273 279 % Saturation 10.6 L 12.6 L Ferritin 208 187 Total Protein (PEP) 6.7 Albumin 2.2 L 2.3 L PTH Intact 108.0 H 04/18/18 04:25 Sodium 148 H Potassium 4.1 Chloride 115 H Carbon Dioxide 24.8 Anion Gap 8 BUN 36 H Creatinine 2.43 H Estimated GFR 20 L Random Glucose 104 Calcium 8.5 Phosphorus Iron TIBC % Saturation Ferritin Total Protein (PEP) Albumin PTH Intact Imaging: ITS Impressions Chest X-Ray 04/11/18 09:40 CONCLUSION: Negative examination. Knee X-Ray 04/13/18 12:21 CONCLUSION: Postoperative findings indicating revision of previously seen total knee prosthesis. Carter Line Insertion 04/17/18 00:00 CONCLUSION: Uncomplicated Carter catheter placement as above. Physical Exam: GENERAL: Well-nourished well-developed, NAD SKIN: Cool and dry, no generalized rash HEAD: Atraumatic. Normocephalic. No temporal or scalp tenderness. EYES: Pupils equal round and reactive. Scleral icterus. No injection or drainage. No petechia ENT: Moist mucosa NECK: Trachea midline. Supple, nontender, no meningeal signs. CARDIOVASCULAR: HS audible. RESPIRATORY: Clear to auscultation bilaterally. GASTROINTESTINAL: Abdomen soft nontender. MUSCULOSKELETAL: LLE - has immobilizer, incision with dry intact dressing NEUROLOGICAL: Alert oriented 3. Nonfocal. Psych cooperative Carter cath in place, no evid infection Assessment and Plan (1) Infected prosthetic knee joint Status: Acute Code(s): T84.59XA - Infection and inflammatory reaction due to other internal joint prosthesis, initial encounter; Z96.659 - Presence of unspecified artificial knee joint - Plan Impression Septic L knee, S/P LTKA, C/S MSSA. - S/P removal of prosthesis and placement of abx spacer Prosthetic knee joint infection, S/P removal of hardware Hx Parkinson's COPD Chronic kidney disease Morbid obesity BMI 38.6 kg/m Recommendation Continue Ancef IV Plan 6 weeks IV Abx - end date May 22 Labs weekly while on Abx: CBC, creat Antibiotic infusion form filled out Monitor progress D/C once arrangements made for her IV Abx
[2018-04-18] MEDS: OXcarbazepine 600 MG Tablet PO SCH ×2 (09:06→20:30)
[2018-04-18] MEDS: Metoprolol Tartrate 50 MG Tablet PO SCH ×2 (09:06→20:31)
[2018-04-18] MEDS: Gabapentin 400 MG Capsule PO SCH ×2 (09:06→20:31)
[2018-04-18] MEDS: Sodium Bicarbonate 650 MG Tablet PO SCH ×2 (09:07→20:31)
[2018-04-18] MEDS: clonazePAM 0.5 MG Tablet PO SCH ×2 (09:07→20:31)
--- NOTE | 2018-04-18 11:52 | P.PN ---
Physical Exam Vital signs: Vital Signs 04/17/18 12:00 04/17/18 18:00 04/17/18 19:31 Temperature 98.4 F 98.1 F 98.0 F Pulse Rate 76 74 77 Respiratory Rate 16 16 20 Blood Pressure 158/70 H 148/68 H 184/83 H Pulse Oximetry 17 L 98 99 04/17/18 20:00 04/18/18 00:00 04/18/18 04:00 Temperature 97.7 F 98.3 F Pulse Rate 72 75 77 Respiratory Rate 18 20 Blood Pressure 116/66 121/61 Pulse Oximetry 98 100 04/18/18 08:00 Temperature 98.6 F Pulse Rate 75 Respiratory Rate 20 Blood Pressure 156/67 H Pulse Oximetry 98 Intake & Output 04/17/18 04/18/18 04/18/18 18:59 06:59 18:59 Intake Total 1100 / 1100 1580 / 1580 Output Total 2200 / 2200 Balance 1100 / 1100 -620 / -620 Weight 115.5 kg 115.5 kg Intake: IV 1100 / 1100 1100 / 1100 Sodium Bicarbonate 8.4% Inj 75 1000 / 1000 1000 / 1000 MEQ In 1/2 Normal Saline Inj 925 ML @ 100 mls/hr IV.CONT . Q10H TOO Rx#:[id number] Ancef Inj 2,000 MG In NS Inj 80 100 / 100 100 / 100 ML @ 200 mls/hr IV.SIG Q12H TOO Rx#:[id number] Oral 480 / 480 Output: Urine 2200 / 2200 Other: # Voids 4 # Bowel Movements 1 0 - Urinary Catheter Management Female External Cath placed during this visit: no Results - Labs CBC & Chem 7: 04/17/18 08:37 04/18/18 04:25 Laboratory Results - last 24 hr 04/17/18 04/17/18 04/18/18 08:37 08:37 04:25 Sodium 148 H Potassium 4.1 Chloride 115 H Carbon Dioxide 24.8 Anion Gap 8 BUN 36 H Creatinine 2.43 H Estimated GFR 20 L Random Glucose 104 Calcium 8.5 Vitamin D 25-Hydroxy 15.0 L PTH Intact 108.0 H - Imaging Impressions Carter Line Insertion 04/17/18 00:00 CONCLUSION: Uncomplicated Carter catheter placement as above. Assessment and Plan - Assessment (1) Sepsis Code(s): A41.9 - Sepsis, unspecified organism Status: Acute (2) Acute joint effusion Code(s): M25.40 - Effusion, unspecified joint Status: Acute (3) Chronic kidney disease, stage IV (severe) Code(s): N18.4 - Chronic kidney disease, stage 4 (severe) Status: Chronic (4) Essential (primary) hypertension Code(s): I10 - Essential (primary) hypertension Status: Chronic (5) Septic arthritis of knee, left Code(s): M00.9 - Pyogenic arthritis, unspecified Status: Acute (6) Anemia Code(s): D64.9 - Anemia, unspecified Status: Chronic - Plan 67-year-old female with status post bilateral knee repair last knee repair was the left knee on September 17, 2017. Presented with acute pain, unable to walk. Left septic knee joint -Status post removal of left knee prosthesis April 13 2018 -status post knee joint aspiration in ED -Currently on Ancef IV per ID, s/p vancomycin and Rocephin . -Patient will need IV antibiotic therapy for 6 weeks -Appreciate input from ID -Synovial joint culture positive for staph aureus -PT to treat and eval -Unable to have PICC secondary to renal dysfunction, nephrology recommends Carter placement. -IR to Place Carter catheter today Chronic kidney disease stage IV -Avoid nephrotoxins. -Continue to monitor creatinine. -Improved today. -Appreciate nephrology input, patient will be put on half normal saline with sodium bicarb. CO2 improved today. -Patient will need outpatient follow-up with nephrology, she verbalized being surprised about CKD. Patient has no family close by, patient today more awake and alert. Discussed in detail about her renal dysfunction and the need to follow-up with nephrology as outpatient. She verbalizes understanding. Follow- up instructions have been included in [id number]. Asymptomatic bacteriuria -Urine culture negative Anemia, Hgb trending, hgb 7.9 -low iron stores -Hemoglobin unchanged. -continue PO iron Hypertension -Lopressor 50 mg twice daily Parkinson/COPD/depression/anxiety/dyslipidemia -Continue with home medication. DVT prophylaxis -SCDs. Repeat labs in am CM for dc planning, accepted at [facility] Plan to discharge tomorrow (1) Sepsis Qualifiers: Sepsis type: sepsis due to unspecified organism Qualified Code(s): A41.9 - Sepsis, unspecified organism (5) Septic arthritis of knee, left Qualifiers: Septic arthritis organism: staphylococcal Qualified Code(s): M00.062 - Staphylococcal arthritis, left knee (6) Anemia Qualifiers: Anemia type: iron deficiency
[2018-04-18] MEDS: Heparin Central Flush 100 UNIT/ML 5 ML Vial IV.FLUSH SCH (13:19)
--- NOTE | 2018-04-18 18:15 | P.DS ---
Date of admission: 04/11/18 14:43 Primary care physician: Chet Garg MD Attending physician on discharge: Vilma Rodriguez Anticipated date of discharge: 04/18/18 Brief History from admission: This is a 67-year-old female past medical history COPD, anxiety/depression, Parkinson's, dyslipidemia, status post bilateral knee repair last knee repair was the left knee on September 17, 2017. Patient stated that last night she developed acute left knee pain. She stated that this morning she try to walk to breakfast afterwards developed severe pain so came to the emergency department. Denies any fevers or chills. Patient stated prior to this she was doing well. She denies any trauma to the knee. No other complaints. Patient had her left knee aspirated in the emergency department and per Dr. Gleason who aspirated the fluid she stated that the fluid did look cloudy in which she is suspecting septic joint. Dr. Del Cid who is her orthopedic surgeon was already consulted by Dr. Gleason emergency medicine provider. Patient denies any urinary symptoms. DS: Diagnosis - Discharge Diagnosis (1) Sepsis Status: Acute (2) Acute joint effusion Status: Acute (3) Chronic kidney disease, stage IV (severe) Status: Chronic (4) Essential (primary) hypertension Status: Chronic (5) Septic arthritis of knee, left Status: Acute (6) Anemia Status: Chronic DS: Medications - Discharge Medications Prescriptions: clonazepam [Klonopin] 0.5 mg PO BID 1 Days #2 tab oxycodone-acetaminophen 1 tab PO Q6HR PRN 2 Days #8 tab PRN Reason: pain 1 to 10 DS: Summary Hospital Course: 67-year-old female with status post bilateral knee repair last knee repair was the left knee on September 17, 2017. Presented with acute pain, unable to walk. During hospital course, the following took place. Pt. admitted for: Left septic knee joint -ortho consulted. -Status post removal of left knee prosthesis April 13 2018 -status post knee joint aspiration in ED -started on Abx. Consulted ID. Was on Vanco and Rocephin. ID recommended Ancef for 6 weeks. -Synovial joint culture positive for staph aureus -PT to treat and eval -Unable to have PICC secondary to renal dysfunction, nephrology recommended Carter placement. -IR placed Carter catheter 04/17, tolerated well -CM arranged abx at SNF Was found with worsening kidney function-had underlying Chronic kidney disease stage IV -started on IVF, consulted nephrology. -Avoided nephrotoxins. -Continued to monitor creatinine -noted acidotic, sodium bicarb was added. Creat improved as well as acidosis. -Kidney dysfunction discussed with pt. she appeared surprise she had CKD. She was emphasized that would need outpatient follow-up with nephrology. She verbalized understanding. Follow-up instructions included in 3008. Noted with Asymptomatic bacteriuria -UA done, Urine culture negative Anemia, Hgb trending, hgb 7.9 -low iron stores -Hemoglobin unchanged. -PO iron continued and changed to ferrous fumarate per nephrology. Hypertension -continued with Lopressor 50 mg twice daily Parkinson/COPD/depression/anxiety/dyslipidemia -Continued with home medication. DVT prophylaxis -SCDs. Pt's condition improved, tolerated abx well. CM consulted for SNF placement. Pt. discharged to SNF in stable condition Instructed to f/u Dr. Finch, PCP, ortho - Time Spent with Patient Total time spent providing and/or coordinating discharge services:35 minutes Greater than 30 minutes - Quality: VTE Deep Vein Thrombosis/Pulmonary Embolism Present on Admission: No Exam Vital signs: Vital Signs 04/17/18 19:31 04/17/18 20:00 04/18/18 00:00 Temperature 98.0 F 97.7 F Pulse Rate 77 72 75 Respiratory Rate 20 18 Blood Pressure 184/83 H 116/66 Pulse Oximetry 99 98 04/18/18 04:00 04/18/18 08:00 04/18/18 12:00 Temperature 98.3 F 98.6 F 97.6 F Pulse Rate 77 77 68 Respiratory Rate 20 20 20 Blood Pressure 121/61 156/67 H 113/75 Pulse Oximetry 100 98 98 04/18/18 15:49 04/18/18 16:00 Temperature 97.6 F Pulse Rate 72 75 Respiratory Rate 21 Blood Pressure 134/58 L Pulse Oximetry 98 Intake & Output 04/17/18 04/18/18 04/18/18 18:59 06:59 18:59 Intake Total 1100 / 1100 1580 / 1580 Output Total 2200 / 2200 Balance 1100 / 1100 -620 / -620 Weight 115.5 kg 115.5 kg Intake: IV 1100 / 1100 1100 / 1100 Sodium Bicarbonate 8.4% Inj 75 1000 / 1000 1000 / 1000 MEQ In 1/2 Normal Saline Inj 925 ML @ 100 mls/hr IV.CONT . Q10H [facility] Rx#:[id number] Ancef Inj 2,000 MG In NS Inj 80 100 / 100 100 / 100 ML @ 200 mls/hr IV.SIG Q12H [facility]OO Rx#:[id number] Oral 480 / 480 Output: Urine 2200 / 2200 Other: # Voids 4 # Bowel Movements 1 0 Results Procedures completed during hospitalization: -Status post removal of left knee prosthesis April 13 2018 -status post knee joint aspiration in ED Labs on day of discharge: Labs from last 24 hours 04/18/18 04/17/18 04:25 08:37 Sodium 148 H Potassium 4.1 Chloride 115 H Carbon Dioxide 24.8 Anion Gap 8 BUN 36 H Creatinine 2.43 H Estimated GFR 20 L Random Glucose 104 Calcium 8.5 Vitamin D 25-Hydroxy 15.0 L - Impressions ITS Impressions Chest X-Ray 04/11/18 09:40 CONCLUSION: Negative examination. Knee X-Ray 04/13/18 12:21 CONCLUSION: Postoperative findings indicating revision of previously seen total knee prosthesis. Carter Line Insertion 04/17/18 00:00 CONCLUSION: Uncomplicated Carter catheter placement as above. Discharge Plan - Discharge Disposition Patient Disposition: Discharge to SNF - Discharge Condition Condition: Stable - Discharge Order Discharge Orders: Discharge Order (Routine); Ordered 04/18/18 Ordered By: Luzmaria Lopez - Discharge Details Anticipated Discharge Date: 04/18/18 - Physicians Team Primary Care Provider: Chet Garg V Attending Provider: Vilma Rodriguez Other Providers: [employer],Insurance ; Mildred Abdullahi MD ; Enrique Del Cid MD ; Natasha Finch MD ; [facility],Agency
--- NOTE | 2018-04-18 18:26 | P.PNNP ---
Subjective Interval history: More alert today. Potentially being discharged in the AM. Physical Exam Vital signs: Vital Signs 04/17/18 19:31 04/17/18 20:00 04/18/18 00:00 Temperature 98.0 F 97.7 F Pulse Rate 77 72 75 Respiratory Rate 20 18 Blood Pressure 184/83 H 116/66 Pulse Oximetry 99 98 04/18/18 04:00 04/18/18 08:00 04/18/18 12:00 Temperature 98.3 F 98.6 F 97.6 F Pulse Rate 77 77 68 Respiratory Rate 20 20 20 Blood Pressure 121/61 156/67 H 113/75 Pulse Oximetry 100 98 98 04/18/18 15:49 04/18/18 16:00 Temperature 97.6 F Pulse Rate 72 75 Respiratory Rate 21 Blood Pressure 134/58 L Pulse Oximetry 98 Intake & Output 04/17/18 04/18/18 04/18/18 18:59 06:59 18:59 Intake Total 1100 / 1100 1580 / 1580 720 / 720 Output Total 2200 / 2200 700 / 700 Balance 1100 / 1100 -620 / -620 20 / 20 Weight 115.5 kg 115.5 kg Intake: IV 1100 / 1100 1100 / 1100 Sodium Bicarbonate 8.4% Inj 75 1000 / 1000 1000 / 1000 MEQ In 1/2 Normal Saline Inj 925 ML @ 100 mls/hr IV.CONT . Q10H [facility]OO Rx#:[id number] Ancef Inj 2,000 MG In NS Inj 80 100 / 100 100 / 100 ML @ 200 mls/hr IV.SIG Q12H [facility]OO Rx#:[id number] Oral 480 / 480 720 / 720 Output: Urine 2200 / 2200 700 / 700 Other: # Voids 4 # Bowel Movements 1 0 - Constitutional no acute distress - Routine HEENT Exam Head: Present: normocephalic, atraumatic - Routine Neck Exam Present: supple - Routine Respiratory Exam Present: CTA bilaterally - Routine Cardiovascular Exam Present: RRR, S1, S2 - Routine Extremities Exam Absent: edema - Routine Skin Exam Present: intact - Routine Neurological Exam Present: alert - Urinary Catheter Management Female External Cath placed during this visit: no Assessment and Plan - Assessment (1) Chronic kidney disease, stage IV (severe) Code(s): N18.4 - Chronic kidney disease, stage 4 (severe) Status: Chronic Plan: Renal functions improved. Encourage continued po water intake for hypernatremia. OK to be discharged from renal standpoint. Should continue on po bicarb for acidosis. Again advised importance of following with nephrology as outpatient. Avoid nephrotoxic medications such as iodinated contrast dyes and NSAIDs. Avoid gadolinium. (2) Essential (primary) hypertension Code(s): I10 - Essential (primary) hypertension Status: Chronic (3) Septic arthritis of knee, left Code(s): M00.9 - Pyogenic arthritis, unspecified Status: Acute Qualifiers: Septic arthritis organism: staphylococcal Qualified Code(s): M00.062 - Staphylococcal arthritis, left knee (4) Anemia Code(s): D64.9 - Anemia, unspecified Status: Chronic Qualifiers: Anemia type: iron deficiency Plan: Hgb dropped with low Fe stores. Start po Ferrous Fumarate. Will defer to primary if further eval necessary.
[2018-04-18] MEDS: Fenofibrate 145 MG Tablet PO SCH (20:30)
[2018-04-18] MEDS: traZODone 100 MG Tablet PO SCH (20:31)
[2018-04-19] MEDS: ceFAZolin Inj 2,000 MG in Sodium Chlor 0.9% Inj 80 ML IV.SIG SCH (03:58)
[2018-04-19 05:11] VITALS: O2SAT 98
--- NOTE | 2018-04-19 08:01 | P.PNOP ---
Subjective Interval history: doing ok. ready to go to snf. Physical Exam Vital signs: Vital Signs 04/18/18 08:00 04/18/18 12:00 04/18/18 15:49 Temperature 98.6 F 97.6 F Pulse Rate 77 68 72 Respiratory Rate 20 20 Blood Pressure 156/67 H 113/75 Pulse Oximetry 98 98 04/18/18 16:00 04/18/18 20:00 04/19/18 00:00 Temperature 97.6 F 98.0 F 98.4 F Pulse Rate 75 84 78 Respiratory Rate 21 19 21 Blood Pressure 134/58 L 183/78 H 149/65 H Pulse Oximetry 98 95 97 04/19/18 04:00 Temperature 97.7 F Pulse Rate 75 Respiratory Rate 21 Blood Pressure 158/78 H Pulse Oximetry 98 Intake & Output 04/18/18 04/19/18 04/19/18 18:59 06:59 18:59 Intake Total 820 / 820 480 / 480 Output Total 700 / 700 1600 / 1600 Balance 120 / 120 -1120 / -1120 Weight 115.5 kg 115 kg Intake: IV 100 / 100 Ancef Inj 2,000 MG In NS Inj 80 100 / 100 ML @ 200 mls/hr IV.SIG Q12H TOO Rx#:[id number] Oral 720 / 720 480 / 480 Output: Urine 700 / 700 Urine Amount (Catheter) 1600 / 1600 Female External 1600 / 1600 Narrative: in bed, nad incision no drainage, no erythema neg homans nvi - Urinary Catheter Management Female External Cath placed during this visit: no Results - Labs CBC & Chem 7: 04/17/18 08:37 04/18/18 04:25 Laboratory Results - last 24 hr 04/17/18 08:37 Albumin (PEP) 3.10 L Albumin/Globulin Ratio 0.86 L Yjvvg-2-Xkixxhgxg 0.38 H Xcexm-3-Lycgmufnw 0.97 Beta Globulins 1.02 Gamma Globulins 1.23 Vitamin D 25-Hydroxy 15.0 L - Procedures -Status post removal of left knee prosthesis April 13 2018 -status post knee joint aspiration in ED Assessment and Plan - Ortho Post Op Day # 5 - Assessment and Plan pod 6 s/p I and D with removal of infected TKA placement of antibiotic spacer cultures JAMIA plan continue ancef per infectous disease nwb LLE daily dressing changes lovenox scd's needs new knee immobilizer prior to d/c ortho stable - cleared for d/c once arrangements are made jolly catheter placed for half-way iv abx per ID will need snf for discharge f/up dr. estevez 2 weeks
[2018-04-19 09:17] VITALS: BP 165/69; RESP 18; TEMP 97.4
[2018-04-19] MEDS: OXcarbazepine 600 MG Tablet PO SCH (09:18)
[2018-04-19] MEDS: Gabapentin 400 MG Capsule PO SCH (09:18)
[2018-04-19] MEDS: Heparin Central Flush 100 UNIT/ML 5 ML Vial IV.FLUSH SCH (09:18)
[2018-04-19] MEDS: Metoprolol Tartrate 50 MG Tablet PO SCH (09:18)
[2018-04-19] MEDS: clonazePAM 0.5 MG Tablet PO SCH (09:18)
[2018-04-19] MEDS: Sodium Bicarbonate 650 MG Tablet PO SCH (09:18)
--- NOTE | 2018-04-19 10:32 | P.PN ---
Subjective Interval history: pt. not dc'd yesterday, had not had BM. Had lg bm. Doing okay today. No pain, eating well. Ready to go to [facility] Physical Exam Vital signs: Vital Signs 04/18/18 12:00 04/18/18 15:49 04/18/18 16:00 Temperature 97.6 F 97.6 F Pulse Rate 68 72 75 Respiratory Rate 20 21 Blood Pressure 113/75 134/58 L Pulse Oximetry 98 98 04/18/18 20:00 04/19/18 00:00 04/19/18 04:00 Temperature 98.0 F 98.4 F 97.7 F Pulse Rate 84 78 75 Respiratory Rate 19 21 21 Blood Pressure 183/78 H 149/65 H 158/78 H Pulse Oximetry 95 97 98 04/19/18 08:00 04/19/18 09:16 Temperature 98.0 F 97.4 F L Pulse Rate 72 79 Respiratory Rate 17 18 Blood Pressure 144/77 H 165/69 H Pulse Oximetry 90 L 98 Intake & Output 04/18/18 04/19/18 04/19/18 18:59 06:59 18:59 Intake Total 820 / 820 480 / 480 Output Total 700 / 700 1600 / 1600 Balance 120 / 120 -1120 / -1120 Weight 115.5 kg 115 kg Intake: IV 100 / 100 Ancef Inj 2,000 MG In NS Inj 80 100 / 100 ML @ 200 mls/hr IV.SIG Q12H [facility] Rx#:[id number] Oral 720 / 720 480 / 480 Output: Urine 700 / 700 Urine Amount (Catheter) 1600 / 1600 Female External 1600 / 1600 Narrative: GENERAL: Well-nourished, well-developed patient in no apparent distress. SKIN: Warm and dry. HEAD: Atraumatic. Normocephalic. EYES: Pupils equal and round. No scleral icterus. No injection or drainage. ENT: No nasal bleeding or discharge. Mucous membranes pink and moist. NECK: Trachea midline. No JVD. CARDIOVASCULAR: Regular rate and rhythm. RESPIRATORY: No accessory muscle use. Clear to auscultation. Breath sounds equal bilaterally. GASTROINTESTINAL: Abdomen soft, non-tender, nondistended. Hepatic and splenic margins not palpable. MUSCULOSKELETAL: Extremities without clubbing, cyanosis, or edema. No obvious deformities. NEUROLOGICAL: Awake and alert oriented 3.. No obvious cranial nerve deficits. Limited mobility to the left lower extremity. Has a canvas splint in place, dressing over left knee, dry and intact. Bilateral pedal pulses 2+, trace pedal edema. PSYCHIATRIC: Appropriate mood and affect; insight and judgment normal. - Urinary Catheter Management Female External Cath placed during this visit: no Results - Labs CBC & Chem 7: 04/17/18 08:37 04/18/18 04:25 Laboratory Results - last 24 hr 04/17/18 08:37 Albumin (PEP) 3.10 L Albumin/Globulin Ratio 0.86 L Uxdma-2-Lbuwrwlof 0.38 H Dopda-8-Ajrcugxmp 0.97 Beta Globulins 1.02 Gamma Globulins 1.23 - Procedures -Status post removal of left knee prosthesis April 13 2018 -status post knee joint aspiration in ED Assessment and Plan - Assessment (1) Sepsis Code(s): A41.9 - Sepsis, unspecified organism Status: Acute (2) Acute joint effusion Code(s): M25.40 - Effusion, unspecified joint Status: Acute (3) Chronic kidney disease, stage IV (severe) Code(s): N18.4 - Chronic kidney disease, stage 4 (severe) Status: Chronic (4) Essential (primary) hypertension Code(s): I10 - Essential (primary) hypertension Status: Chronic (5) Septic arthritis of knee, left Code(s): M00.9 - Pyogenic arthritis, unspecified Status: Acute (6) Anemia Code(s): D64.9 - Anemia, unspecified Status: Chronic - Plan 67-year-old female with status post bilateral knee repair last knee repair was the left knee on September 17, 2017. Presented with acute pain, unable to walk. Left septic knee joint -Status post removal of left knee prosthesis April 13 2018 -status post knee joint aspiration in ED -Currently on Ancef IV per ID, s/p vancomycin and Rocephin . -Patient will need IV antibiotic therapy for 6 weeks -Appreciate input from ID -Synovial joint culture positive for staph aureus -PT to treat and eval -Unable to have PICC secondary to renal dysfunction, nephrology recommends Carter placement. -IR Placed Carter catheter 04/17 Chronic kidney disease stage IV -Avoid nephrotoxins. -Continue to monitor creatinine-improved -Appreciate nephrology input, continue sodium bicarb PO at [facility] -Patient will need outpatient follow-up with nephrology, she verbalized being surprised about CKD. Discussed in detail about her renal dysfunction and the need to follow-up with nephrology as outpatient. She verbalizes understanding. Follow-up instructions have been included in 3008. Asymptomatic bacteriuria -Urine culture negative Anemia, Hgb trending, hgb 7.9 -low iron stores -Hemoglobin unchanged. -continue PO iron -changed to Ferrous fumarate Hypertension -Lopressor 50 mg twice daily Parkinson/COPD/depression/anxiety/dyslipidemia -Continue with home medication. DVT prophylaxis -SCDs. Repeat labs in am CM for dc planning, accepted at [facility] today F/U ortho 2 weeks, f/u Dr. Finch 2 weeks F/U PCP [facility] Diet-heart healthy (1) Sepsis Qualifiers: Sepsis type: sepsis due to unspecified organism Qualified Code(s): A41.9 - Sepsis, unspecified organism (5) Septic arthritis of knee, left Qualifiers: Septic arthritis organism: staphylococcal Qualified Code(s): M00.062 - Staphylococcal arthritis, left knee (6) Anemia Qualifiers: Anemia type: iron deficiency
[2018-04-19] MEDS: guaiFENesin 600 MG ER Tablet PO SCH (11:12)
[2018-04-19 15:56] VITALS: PULSE 75
== END 2018-04-19 12:15 ==
LOC: NEPE 09:30 → NEDA 14:43 → N04 17:15
PROVIDERS: ADMIT Internal Medicine; ATTEND Internal Medicine